=== PATIENT | male | born 1945 | race Caucasian/White ===

== ENCOUNTER 2016-07-26 15:06 | Inpatient (IN) | payer MEDICARE, OTHER ==
[2016-07-26] VITALS (13 sets, daily range): BP systolic 93–136; BP diastolic 49–77; PULSE 79–155; RESP 14–46; TEMP 99–101.1; O2SAT 87–100
[~2016-07-26] VITALS: Ht 172.7 cm; Wt 69.0 kg
[~2016-07-26 15:06] MED LIST: COUM4TAB7 PO; ENOX100P SC; ENOX120P SC
[2016-07-26] MEDS ORDERED: ETOMIDATE 20 MG/10 ML VIAL ONE (15:16)
[2016-07-26] MEDS ORDERED: PROPOFOL 1000 MG/100 ML INJ 100 ML ONE (15:30)
[2016-07-26] MEDS ORDERED: MIDAZOLAM HCL 5 MG/ML VIAL (1 ML) ONE (15:32)
[2016-07-26 15:37] LABS: MEAN CORPUSCULAR HGB CONC 28.7 % (32.0-36.0)
[2016-07-26] MEDS ORDERED: VANCOMYCIN INJ 1,000 MG in SODIUM CHLOR 0.9% 250 ML INJ 250 ML IV ONE (15:45)
[2016-07-26] MEDS ORDERED: SODIUM CHLOR 0.9% 1000 ML INJ 1,000 ML IV ONE ×3 (15:45)
[2016-07-26] MEDS ORDERED: VECURONIUM BROMIDE 10 MG VIAL IV PUSH ONE (15:45)
[2016-07-26] MEDS ORDERED: PIPERACIL-TAZO 3.375 GM PREMIX 50 ML IV ONE (15:45)
[2016-07-26] MEDS ORDERED: PROPOFOL 1000 MG/100 ML INJ 100 ML IV SCH ×2 (15:45→17:30)
[2016-07-26] MEDS ORDERED: ETOMIDATE 20 MG/10 ML VIAL IV PUSH ONE (15:45)
[2016-07-26 16:03] LABS: BLOOD GAS BASE EXCESS -8.2 mmol/L (-2-2); BLOOD GAS HCO3 17 mmol/L (22-26); BLOOD GAS METHEMOGLOBIN 0.6 % (0-2); BLOOD GAS O2 HGB SATURATION 98 % (90-100); BLOOD GAS OXYGEN CONTENT 6.7 Vol % (12.0-20.0); BLOOD GAS PCO2 33 mmHg (38-42); BLOOD GAS PO2 402 mmHG (61-120); BLOOD GAS TOTAL HGB 4.1 G/DL (12.0-16.0); CRITICAL VALUE YES; DRAW SITE RT RADIAL; FIO2 100 %; NUMBER OF ARTERIAL PUNCTURES 1; OXYGEN DEVICE VENTILATOR; STAT YES; TEMP CORR TO 98.6; VENT SETTINGS A/C16/500/PEEP5
[2016-07-26 16:06] LABS: BLOOD, URINE TRACE (NEG); GLUCOSE,URINE NEG (NEG); KETONE, URINE NEG (NEG); NITRITE,URINE NEG (NEG); PH, URINE 5.5 (5.0-8.5); URINE COLOR YELLOW (YELLW/STRAW)
[2016-07-26 16:08] LABS: AUTOMATED NEUTROPHIL # 10.8 TH/MM3 (1.8-7.7); LYMPH % 10.4 % (9.0-44.0); LYMPHOCYTE # 1.4 TH/MM3 (1.0-4.8); MEAN CELL VOLUME 67.8 FL (80.0-100.0); MEAN CORPUSCULAR HEMOGLOBIN 19.5 PG (27.0-34.0); MONO % 6.4 % (0.0-8.0); NEUT % 83.2 % (16.0-70.0); PLATELET COUNT 236 TH/MM3 (150-450); RED BLOOD COUNT 2.27 MIL/MM3 (4.50-5.90)
--- NOTE | 2016-07-26 16:13 | RADRPT ---
EXAM DATE/TIME: 07/26/2016 15:42 [facility] COMPARISON: No previous studies available for comparison. INDICATIONS : Evaluate ET tube placement. MEDICAL HISTORY : None. SURGICAL HISTORY : None. ENCOUNTER: Initial ACUITY: 1 day PAIN SCORE: Non-responsive. LOCATION: Bilateral chest FINDINGS: A single view of the chest demonstrates the lungs to be symmetrically aerated without evidence of mas s, infiltrate or effusion. Endotracheal tube 7 cm above the kari. Nasogastric tube tip in stomach. The cardiomediastinal contours are unremarkable. Skinfold along the right lower lateral chest. Blanca us structures are intact. CONCLUSION: No acute disease. Endotracheal tube 7 cm above the kari. David Montes MD on July 26, 2016 at 16:10 Board Certified Radiologist. This report was verified electronically.
[2016-07-26 16:15] LABS: WBC, URINE 0-2 /hpf (0-5)
[2016-07-26 16:15] LABS: HEMO FLAGS AUTO DIFF
[2016-07-26] MEDS ORDERED: SODIUM CHLOR 0.9% 250 ML INJ 250 ML IV ONE (16:15)
[2016-07-26 16:16] LABS: COMMENT (UR) CULT NOT INDICATED; COMMENT2 (UR) CULT NOT INDICATED; CULTURE IF INDICATED CULT NOT INDICATED; SQUAMOUS EPITHELIAL CELL URINE 0-5 /hpf (0-5)
[2016-07-26 16:21] LABS: ALT (GPT) 9 U/L (12-78); ANION GAP 15 MEQ/L (5-15); AST (GOT) 16 U/L (15-37); BICARBONATE 16.8 MEQ/L (21.0-32.0); BLOOD UREA NITROGEN 60 MG/DL (7-18); CHLORIDE 116 MEQ/L (98-107); GLOMERULAR FILTRATION RATE 23 ML/MIN (>89); MAGNESIUM 2.3 MG/DL (1.5-2.5); SODIUM (NA) 148 MEQ/L (136-145)
[2016-07-26 16:24] LABS: ALKALINE PHOSPHATASE 24 U/L (45-117); CREATINE KINASE 233 U/L (39-308); HEMATOCRIT 15.4 % (39.0-51.0); TOTAL BILIRUBIN ADULT 0.8 MG/DL (0.2-1.0)
[2016-07-26 16:32] LABS: APTT (PATIENT) 26.4 SEC (24.3-30.1); INTERNATIONAL NORMALIZED RATIO 1.2 RATIO; PROTHROMBIN TIME - PATIENT 13.4 SEC (9.8-11.6)
--- NOTE | 2016-07-26 16:33 | PD ---
HPI Chief Complaint: Altered Mental Status Time Seen by Provider: 15:22 Travel History International Travel<30 days: No (UNKNOWN ) Contact w/Intl Traveler<30days: No Traveled to known affect area: No (UNKNOWN) History of Present Illness HPI Patient is a 71-year-old male who was brought to emergency room by EVAC for altered mental status. As per EVAC, pt's roommate left this morning for work and noticed that patient was sitting on the couch with his mouth open, reports that when he returned home from work, he was still in the same position and minimally responsive. EMS arrived on scene and reports that patient was hypotensive and hypoxic. Reports that his systolic blood pressure was in the 70s, his pulse ox was also in the 70s as well. Patient was only responsive to painful stimuli at this point. Reports that his blood sugar was normal. Reports that he was given almost a liter of fluid prior to arrival to ER. BP while in the ER 108/57. Patient is unable to provide any information at this time, he is nonverbal, patient was intubated for airway safety [facility] Past Medical History Respiratory: Yes (PE FEB 2011) Social History Alcohol Use: No Tobacco Use: Yes (4 CIGARETTES A DAY) Substance Use: No Allergies-Medications (Allergen,Severity, Reaction): Coded Allergies: No Known Allergies (Unverified , 07/26/16) Reported Meds & Prescriptions Reported Meds & Active Scripts Active Active Prescriptions or Reported Medications Unobtainable Review of Systems ROS Limitations: Intubated, Altered Mental Status, Unresponsive Physical Exam Exam Limitations: Altered Mental Status Narrative GENERAL: severe distress, patient cachectic appearing SKIN: Focused skin assessment cold and dry HEAD: Atraumatic. Normocephalic. EYES: Pupils equal and round. No scleral icterus. No injection or drainage. ENT: No nasal bleeding or discharge. Mucous membranes pink and moist. NECK: Trachea midline. No JVD. CARDIOVASCULAR: Tachycardic. No murmur appreciated. RESPIRATORY: Tachypneic,. Clear to auscultation. Breath sounds equal bilaterally. GASTROINTESTINAL: Abdomen soft, non-tender, nondistended. Melanotic stool, heme positive MUSCULOSKELETAL: No obvious deformities. No clubbing. No cyanosis. No edema. NEUROLOGICAL: GCS 8, patient unresponsive, only responsive to painful stimuli Data Data Last Documented VS Vital Signs Date Time Temp Pulse Resp B/P Pulse Ox O2 Delivery O2 Flow Rate FiO2 07/26/16 17:00 95 100 07/26/16 16:16 101.1 116 16 93/55 Ventilator Orders Etomidate Inj (Amidate Inj) (07/26/16 15:16) Propofol 1000 Mg/100 Ml Inj (Diprivan 10 (07/26/16 15:30) Midazolam Inj (Versed Inj) (07/26/16 15:32) Chest, Single Ap (07/26/16 15:33) Electrocardiogram (07/26/16 15:12) Ammonia (07/26/16 15:34) Electrocardiogram (07/26/16 15:34) Complete Blood Count With Diff (07/26/16 15:34) Comprehensive Metabolic Panel (07/26/16 15:34) Prothrombin Time / Inr (Pt) (07/26/16 15:34) Act Partial Throm Time (Ptt) (07/26/16 15:34) Lactic Acid Sepsis Protocol (07/26/16 15:34) Magnesium (Mg) (07/26/16 15:34) Phosphorus (Po4) (07/26/16 15:34) Lipase (07/26/16 15:34) Ckmb (Isoenzyme) Profile (07/26/16 15:34) Troponin I (07/26/16 15:34) Urinalysis - C+S If Indicated (07/26/16 15:34) Blood Culture (07/26/16 15:34) Arterial Blood Gas (Abg) (07/26/16 15:34) Ct Brain W/O Iv Contrast(Rout) (07/26/16 15:34) Urinary Catheter Insert/Apply (07/26/16 15:36) Sunil-Gastric Tube Insert/Mon (07/26/16 15:36) Sodium Chlor 0.9% 1000 Ml Inj (Ns 1000 M (07/26/16 15:45) Sodium Chlor 0.9% 1000 Ml Inj (Ns 1000 M (07/26/16 15:45) Sodium Chlor 0.9% 1000 Ml Inj (Ns 1000 M (07/26/16 15:45) Propofol 1000 Mg/100 Ml Inj (Diprivan 10 (07/26/16 15:45) Piperacil-Tazo 3.375 Gm Premix (Zosyn 3. (07/26/16 15:45) Vancomycin Inj (Vancomycin Inj) (07/26/16 15:45) Etomidate Inj (Amidate Inj) (07/26/16 15:45) Vecuronium 10 Mg Inj (Norcuron 10 Mg Inj (07/26/16 15:45) Type And Screen (07/26/16 16:09) Red Blood Cells (Rbc) (07/26/16 16:09) Blood Product Administration .UPON TRANSFUSION (07/26/16 16:09) Sodium Chlor 0.9% 250 Ml Inj (Ns 250 Ml (07/26/16 16:15) Ct Thorax/ Chest Wo Iv Contras (07/26/16 ) Pantoprazole Inj (Protonix Inj) (07/26/16 17:30) Pantoprazole Inj (Protonix Inj) (07/26/16 17:30) CKMB (07/26/16 15:40) CKMB% (07/26/16 15:40) Acetaminophen Supp (Tylenol Supp) (07/26/16 16:45) Drug Screen, Random Urine (07/26/16 16:47) Alcohol (Ethanol) (07/26/16 16:50) Sputum Culture And Gram Stain (07/26/16 16:56) Urine Culture (07/26/16 16:56) Consult Gastroenterology (07/26/16 ) Complete Blood Count With Diff (07/27/16 06:00) Comprehensive Metabolic Panel (07/27/16 06:00) Magnesium (Mg) (07/27/16 06:00) Lactic Acid (07/26/16 22:00) Ckmb (Isoenzyme) Profile (07/26/16 16:56) Ckmb (Isoenzyme) Profile (07/26/16 22:56) Ckmb (Isoenzyme) Profile (07/27/16 04:56) Troponin I (07/26/16 16:56) Troponin I (07/26/16 22:56) Troponin I (07/27/16 04:56) Chest, Single Ap (07/27/16 ) Piperacil-Tazo 3.375 Gm Premix (Zosyn 3. (07/26/16 22:00) Vancomycin Consult Pharmacy (Vancomycin (07/26/16 17:00) Admit Order (Ed Use Only) (07/26/16 17:00) Ct Abd/Pel W/O Iv Contrast (07/26/16 ) Magnesium (Mg) (07/26/16 16:56) Labs Laboratory Tests Test 07/26/16 07/26/16 07/26/16 07/26/16 15:38 15:39 15:40 15:53 Lactic Acid Level 6.2 mmol/L Ammonia 23 MCMOL/L Urine Color YELLOW Urine Turbidity HAZY Urine pH 5.5 Urine Specific [place] 1.014 Urine Protein 30 mg/dL Urine Glucose (UA) NEG mg/dL Urine Ketones NEG mg/dL Urine Occult Blood TRACE Urine Nitrite NEG Urine Bilirubin NEG Urine Urobilinogen LESS THAN 2.0 MG/DL Urine Leukocyte Esterase NEG Urine RBC 3-5 /hpf Urine WBC 0-2 /hpf Urine Squamous Epithelial 0-5 /hpf Cells Urine Amorphous Sediment LARGE Urine Bacteria NONE /hpf Microscopic Urinalysis Comment CULT NOT INDICATED White Blood Count 13.0 TH/MM3 Red Blood Count 2.27 MIL/MM3 Hemoglobin 4.4 GM/DL Hematocrit 15.4 % Mean Corpuscular Volume 67.8 FL Mean Corpuscular Hemoglobin 19.5 PG Mean Corpuscular Hemoglobin 28.7 % Concent Red Cell Distribution Width 20.0 % Platelet Count 236 TH/MM3 Mean Platelet Volume 8.5 FL Neutrophils (%) (Auto) 83.2 % Lymphocytes (%) (Auto) 10.4 % Monocytes (%) (Auto) 6.4 % Eosinophils (%) (Auto) 0.0 % Basophils (%) (Auto) 0.0 % Neutrophils # (Auto) 10.8 TH/MM3 Lymphocytes # (Auto) 1.4 TH/MM3 Monocytes # (Auto) 0.8 TH/MM3 Eosinophils # (Auto) 0.0 TH/MM3 Basophils # (Auto) 0.0 TH/MM3 CBC Comment AUTO DIFF Differential Comment AUTO DIFF CONFIRMED Platelet Estimate NORMAL Platelet Morphology Comment NORMAL Prothrombin Time 13.4 SEC Prothromb Time International 1.2 RATIO Ratio Activated Partial 26.4 SEC Thromboplast Time Sodium Level 148 MEQ/L Potassium Level 4.0 MEQ/L Chloride Level 116 MEQ/L Carbon Dioxide Level 16.8 MEQ/L Anion Gap 15 MEQ/L Blood Urea Nitrogen 60 MG/DL Creatinine 2.73 MG/DL Estimat Glomerular Filtration 23 ML/MIN Rate Random Glucose 159 MG/DL Calcium Level 8.8 MG/DL Phosphorus Level 4.4 MG/DL Magnesium Level 2.3 MG/DL Total Bilirubin 0.8 MG/DL Aspartate Amino Transf 16 U/L (AST/SGOT) Alanine Aminotransferase 9 U/L (ALT/SGPT) Alkaline Phosphatase 24 U/L Total Creatine Kinase 233 U/L Creatine Kinase MB 1.1 NG/ML Troponin I 0.53 NG/ML Total Protein 6.9 GM/DL Albumin 2.1 GM/DL Lipase 160 U/L Ethyl Alcohol Level LESS THAN 3 MG/DL Blood Gas Puncture Site RT RADIAL Blood Gas Patient Temperature 98.6 Blood Gas HCO3 17 mmol/L Blood Gas Base Excess -8.2 mmol/L Blood Gas Oxygen Saturation 98 % Arterial Blood pH 7.33 Arterial Blood Partial 33 mmHg Pressure CO2 Arterial Blood Partial 402 mmHG Pressure O2 Arterial Blood Oxygen Content 6.7 Vol % Arterial Blood 2.0 % Carboxyhemoglobin Arterial Blood Methemoglobin 0.6 % Blood Gas Hemoglobin 4.1 G/DL Oxygen Delivery Device VENTILATOR Blood Gas Ventilator Setting A/C16/500/PEEP5 Blood Gas Inspired Oxygen 100 % Test 07/26/16 16:20 Blood Type O POSITIVE Antibody Screen NEGATIVE Crossmatch Leukocyte-Reduced Red Blood Cells Blood Bank Comment MDM Medical Decision Making Medical Screen Exam Complete: Yes Emergency Medical Condition: Yes Interpretation(s) EKG at 1536: aflutter at 150bpm, qt/qtc: 302/388 Vital Signs Date Time Temp Pulse Resp B/P Pulse Ox O2 Delivery O2 Flow Rate FiO2 07/26/16 16:16 101.1 116 16 93/55 98 Ventilator 50 07/26/16 15:12 155 30 108/57 Differential Diagnosis Intracranial hemorrhage, GI bleed, renal failure, electrolyte abnormality, sepsis, pneumonia, UTI Narrative Course 71-year-old male who presents to emergency room with a GCS of 8, EMS reports that patient was found unresponsive on his couch today by his roommate. Patient was intubated upon arrival to the emergency room as his GCS was 8 for airway protection Upon presentation to the emergency room, patient was tachycardic, febrile, hypotensive for EMS, initial blood pressure here after 1 L IV fluid was 108/57. Patient was given rectal Tylenol for his temperature of 101.1 patient was tachycardic with a heart rate in the 116-155, patient has SIRS criteria, patient was ordered 3 L of IV fluids, patient has been pancultured, IV Zosyn as well as vancomycin was administered. Patient a pale-appearing,, rectal exam was performed, patient does have dark brown stools, heme positive. Patient with a hemoglobin of 4.4, concern for possible GI bleed. 4 units of blood was ordered for patient, emergent consent was implied as patient has no family members, OG tube with dark blood, rectal exam with heme positive dark stool, protonix bolus ordered along with protonix gtt. Patient's white blood cell count is 13,000, lactate is 6.2, lactic acidosis could be secondary to hypoperfusion, patient has been pancultured this time, broad-spectrum antibiotics has been administered. Plan to obtain CT of the chest, abdomen and pelvis for evaluation of possible source of infection/bleed Patient also with acute renal insuffiency, cr. 2.73 - most likely from dehydration case discussed with Dr. Salas who accepts pt to service case reviewed with Dr. Gastelum with GI who will also see patient in consult Critical Care Narrative Aggregate critical care time was 60 minutes. Time to perform other separately billable procedures was not included in the critical care time. My time did not include minutes spent treating any other patients simultaneously or on activities that did not directly contribute to the patient's treatment. The services I provided to this patient were to treat and/or prevent clinically significant deterioration that could result in: , decompensation, deterioration I provided critical care services requiring my management, as noted below: Chart data review, documentation time, medication orders and management, vital sign assessments/reviewing monitor data, ordering and reviewing lab tests, ordering and interpreting/reviewing x-rays and diagnostic studies, care of the patient and discussion of the patient with the admitting physicians. Procedures Procedure Narrative After the risks and benefits were discussed the following procedure was performed: INTUBATION: The patient was put in optimal position for the procedure. Rapid sequence intubation was initiated by me using 20 milligrams of etomidate IV and 10 milligrams of vecuronium IV. The patient was intubated with a 7.5 cuffed endotracheal tube. Tube placement was confirmed by visualization of the tube and balloon passing through the cords, capnometry and subsequent chest x-ray. Breath sounds were equal and well aerated bilaterally postintubation. No breath sounds over stomach. Patient tolerated procedure well. Diagnosis Primary Impression: Ventilator dependence Additional Impressions: Anemia Qualified Code: D64.9 - Anemia, unspecified type Renal failure Qualified Code: N17.9 - Acute renal failure, unspecified acute renal failure type NSTEMI (non-ST elevated myocardial infarction) Sepsis Qualified Code: A41.9 - Sepsis, due to unspecified organism Atrial fibrillation with rapid ventricular response Admitting Information Admitting Physician Requests: Admit Scripts Unable to Obtain Active Prescriptions or Reported Meds Eva Oliver DO Jul 26, 2016 16:33
[2016-07-26 16:38] LABS: CKMB 1.1 NG/ML (0.5-3.6)
[2016-07-26] MEDS ORDERED: ACETAMINOPHEN 650 MG SUPP RECTAL ONE (16:45)
--- NOTE | 2016-07-26 16:59 | HHI.HP ---
[facility] Service Critical Care Medicine Primary Care Physician Unknown Admission Diagnosis Diagnosis: (1) Acute respiratory failure Diagnosis: Principal (2) Encephalopathy acute Diagnosis: Principal (3) Septic shock Diagnosis: Principal (4) GI bleed Diagnosis: Principal (5) Atrial fibrillation with rapid ventricular response Diagnosis: Principal (6) Severe anemia Diagnosis: Principal (7) Lactic acidosis Diagnosis: Principal (8) Acute kidney failure Diagnosis: Principal (9) Dehydration Diagnosis: Principal (10) Leukocytosis Diagnosis: Principal (11) Elevated troponin Diagnosis: Principal (12) possible history of PE in 2012 Diagnosis: Secondary Chief Complaint: Altered mental status Respiratory failure Fever Travel History International Travel<30 Days: No (UNKNOWN ) Contact w/Intl Traveler <30 Da: No Traveled to Known Affected Are: No (UNKNOWN) Sepsis Criteria SIRS Criteria (2 or more): Temp > 100.9 or < 96.8, Heart rate over 90, RR > 20 or PaCO2 < 32, WBC > 28597, < 4000 or > 10% bands Sepsis Criteria (SIRS+source): Infect source susp/known Severe Sepsis (+one): Lactate >2, Acute Oliguria/Renal Failure Septic Shock Criteria: Lactic acid >=4 Criteria Outcome: Meets septic shock criteria History of Present Illness Patient is a 71-year-old male with only known past medical history of tobacco abuse and a possible history of PE in 2011 aas per emergency department notes was brought to the [facility] ED for altered mental status. Apparently patient's roommate found him unresponsive in the morning and after he came back from work patient was still in the same condition not responsive. EMS was called patient was found hypotensive, hypoxemic and given a liter bolus which improved the blood pressure. In the emergency department patient had a GCS of 8. He had a fever 101.1 tachycardic and heart rate 150s. Patient was given additional fluid boluses and was intubated by Dr. Oliver for airway protection. Chest x-ray was unremarkable lab work showed a hemoglobin of 4.1 white count of 13, lactic acid of 6.2 BUN of 16 creatinine of 2.7. For possible sepsis he was given vancomycin and Zosyn. A total of 4 units of PRBC had been ordered and GI consult had been requested. History of Hemoccult was positive. Troponin was slightly elevated could be demand ischemia in renal failure I evaluated the patient in the ED. He appears chronically ill, dishevelled. CT of the head and chest abdomen pelvis is pending at this time. Dr.Al Gastelum with GI had been consulted. IV Protonix gtt. Start Cardizem bolus and drip for A fib with RVR Review of Systems ROS Limitations: Intubated, Altered Mental Status Past Family Social History Allergies: Coded Allergies: No Known Allergies (Unverified , 07/26/16) Past Medical History Apparently had pulmonary embolism in 2011, per ER records Past Surgical History Unknown Reported Medications UNABLE TO VERIFY MEDS Lovenox (Enoxaparin Sodium) 120 /0.8 Inj 1 0.8 SC Lovenox (Enoxaparin Sodium) 100 Mg/Ml Inj 140 Mg SC DAILY Coumadin (Warfarin Sodium) 4 Mg Tab 4 Mg PO DAILY Active Ordered Medications Received vancomycin and Zosyn in the ED Family History Unable to obtain Social History Smoker per ER records Physical Exam Vital Signs Vital Signs Date Time Temp Pulse Resp B/P Pulse Ox O2 Delivery O2 Flow Rate FiO2 07/26/16 16:16 101.1 116 16 93/55 98 Ventilator 50 07/26/16 15:12 155 30 108/57 Physical Exam P/E GENERAL: Chronically ill-appearing disheveled male who is intubated, sedated SKIN: Warm and dry. Large wart on L thigh HEAD: Atraumatic. Normocephalic. EYES: Pupils equal and round. ENT: Oral mucosa is dry. Orotracheally intubated NECK: Trachea midline. No JVD. CARDIOVASCULAR: Atrial fibrillation with RVR. No murmur appreciated. Prominent apical impulse RESPIRATORY: Bilateral expiratory wheezes, no crackles GASTROINTESTINAL: Abdomen soft, non-tender, nondistended. (Melanotic stool, heme positive per ER notes) MUSCULOSKELETAL: No obvious deformities. No clubbing. No cyanosis. No edema. NEUROLOGICAL: Intubated sedated and still under neuromuscular paralysis from vecuronium given for intubation Laboratory Laboratory Tests Test 07/26/16 07/26/16 07/26/16 07/26/16 15:38 15:39 15:40 15:53 Lactic Acid Level 6.2 Ammonia 23 Urine Color YELLOW Urine Turbidity HAZY Urine pH 5.5 Urine Specific [place] 1.014 Urine Protein 30 Urine Glucose (UA) NEG Urine Ketones NEG Urine Occult Blood TRACE Urine Nitrite NEG Urine Bilirubin NEG Urine Urobilinogen LESS THAN 2.0 Urine Leukocyte Esterase NEG Urine RBC 3-5 Urine WBC 0-2 Urine Squamous Epithelial 0-5 Cells Urine Amorphous Sediment LARGE Urine Bacteria NONE Microscopic Urinalysis Comment CULT NOT INDICATED White Blood Count 13.0 Red Blood Count 2.27 Hemoglobin 4.4 Hematocrit 15.4 Mean Corpuscular Volume 67.8 Mean Corpuscular Hemoglobin 19.5 Mean Corpuscular Hemoglobin 28.7 Concent Red Cell Distribution Width 20.0 Platelet Count 236 Mean Platelet Volume 8.5 Neutrophils (%) (Auto) 83.2 Lymphocytes (%) (Auto) 10.4 Monocytes (%) (Auto) 6.4 Eosinophils (%) (Auto) 0.0 Basophils (%) (Auto) 0.0 Neutrophils # (Auto) 10.8 Lymphocytes # (Auto) 1.4 Monocytes # (Auto) 0.8 Eosinophils # (Auto) 0.0 Basophils # (Auto) 0.0 CBC Comment AUTO DIFF Prothrombin Time 13.4 Prothromb Time International 1.2 Ratio Activated Partial 26.4 Thromboplast Time Sodium Level 148 Potassium Level 4.0 Chloride Level 116 Carbon Dioxide Level 16.8 Anion Gap 15 Blood Urea Nitrogen 60 Creatinine 2.73 Estimat Glomerular Filtration 23 Rate Random Glucose 159 Calcium Level 8.8 Phosphorus Level 4.4 Magnesium Level 2.3 Total Bilirubin 0.8 Aspartate Amino Transf 16 (AST/SGOT) Alanine Aminotransferase 9 (ALT/SGPT) Alkaline Phosphatase 24 Total Creatine Kinase 233 Creatine Kinase MB 1.1 Troponin I 0.53 Total Protein 6.9 Albumin 2.1 Lipase 160 Blood Gas Puncture Site RT RADIAL Blood Gas Patient Temperature 98.6 Blood Gas HCO3 17 Blood Gas Base Excess -8.2 Blood Gas Oxygen Saturation 98 Arterial Blood pH 7.33 Arterial Blood Partial 33 Pressure CO2 Arterial Blood Partial 402 Pressure O2 Arterial Blood Oxygen Content 6.7 Arterial Blood 2.0 Carboxyhemoglobin Arterial Blood Methemoglobin 0.6 Blood Gas Hemoglobin 4.1 Oxygen Delivery Device VENTILATOR Blood Gas Ventilator Setting A/C16/500/PEEP5 Blood Gas Inspired Oxygen 100 Date/Time Procedure Status Source Growth 07/26/16 15:40 Aerobic Blood Culture Received Blood Peripheral Pending 07/26/16 15:40 Anaerobic Blood Culture Received Blood Peripheral Pending Result Diagram: 07/26/16 1540 07/26/[address] head shows previous stroke and encephalomalacia CT abdomen shows 3.[address] chest shows no acute infiltrate Septic Shock Reassessment Heart: Other (tachycardic) Lungs: Course Skin: Warm, Dry Peripheral Pulses: Weak Right Radial Weak Left Radial Assessment and Plan Assessment and Plan NEURO: Acute encephalopathy most likely metabolic Previous CVA with encephalomalacia -CT head shows old infarcts without any acute findings, may need MRI of the head -EEG ordered pending -Urine drug screen and alcohol level RESP: Acute hypoxemic respiratory failure Acute COPD exacerbation Tobacco abuse -Intubated for airway protection continuous controlled mechanical ventilation -DuoNeb every 6 hours and when necessary -IV Solu-Medrol 125 mg 1 and 60 every 12 -Broad-spectrum antibiotics with vancomycin and Zosyn CV: Septic and hypovolemic shock Atrial fibrillation with RVR Lactic acidosis -IV fluids 3 L bolus of normal saline and 150 mL per hour -Norepinephrine if needed to keep map above 65 -Cardizem 15 mg IV and gtt -Trend lactic acid GI: GI bleed 3.4 cm infrarenal AAA -Transfuse 4U PRBC. -GI consulted Dr. Callahan. Will need endoscopy -Continue IV Protonix infusion -No intervention needed for AAA at this time : Acute kidney failure -Monitor renal function closely. Place Weems catheter. -Aggressive hydration -Renal failure most likely secondary to dehydration and sepsis -Baseline creatinine is unknown ID: Septic shock -Source of sepsis is unclear. Blood cultures have been sent -Continue Zosyn and vancomycin HEME: Severe anemia requiring transfusion GI bleed -Transfuse 4 units PRBC target hemoglobin more than 8 -Gastroenterology consulted -Monitor CBC, CMP, coags ENDO: -Electrolyte replacement per protocol PROPH: -Bilateral lower extremity SCDs/ANGELITO. Protonix gtt. chemical DVT prophylaxis contraindicated due to GI bleed LINES: D -Utilize peripheral IVs, central line if needed CC time 82 min Code Status Full Discussed Condition With Dr. Oliver Problem Qualifiers (1) Acute respiratory failure: Qualified Code: J96.00 - Acute respiratory failure, unspecified whether with hypoxia or hypercapnia (2) GI bleed: Qualified Code: K92.2 - Gastrointestinal hemorrhage, unspecified gastrointestinal hemorrhage type (3) Acute kidney failure: Qualified Code: N17.9 - Acute renal failure, unspecified acute renal failure type (4) Leukocytosis: Qualified Code: D72.829 - Leukocytosis, unspecified type Dennis Salas MD Jul 26, 2016 16:59
[2016-07-26] MEDS ORDERED: Vancomycin Consult Pharmacy 1 EA OTHER SCH (17:00)
--- NOTE | 2016-07-26 17:07 | RADRPT ---
EXAM DATE/TIME: 07/26/2016 16:47 [facility] COMPARISON: No previous studies available for comparison. INDICATIONS : Patient is unable to speak, Altered mental status. Last seen normal last evening. RADIATION DOSE: 60.84 CTDIvol (mGy) MEDICAL HISTORY : None SURGICAL HISTORY : None. ENCOUNTER: Initial ACUITY: 1 day PAIN SCALE: Non-responsive LOCATION: cranial TECHNIQUE: Multiple contiguous axial images were obtained of the head. Using automated exposure control and adj ustment of the mA and/or kV according to patient size, radiation dose was kept as low as reasonably a chievable to obtain optimal diagnostic quality images. FINDINGS: CEREBRUM: Areas of encephalomalacia left frontal, parietal, temporal and left occipital lobe. The ventricles ar e normal for age. Extra-axial dilatation of the left lateral ventricle. No evidence of midline shift, mass lesion, hemorrhage or acute infarction. No extra-axial fluid collections are seen. POSTERIOR FOSSA: The cerebellum and brainstem are intact. The 4th ventricle is midline. The cerebellopontine angle i s unremarkable. EXTRACRANIAL: The visualized portion of the orbits is intact. Sinus disease. SKULL: The calvaria is intact. No evidence of skull fracture. CONCLUSION: 1. 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 2. No acute intracranial abnormality. David Montes MD on July 26, 2016 at 17:03 Board Certified Radiologist. This report was verified electronically.
[2016-07-26 17:09] LABS: PLATELET ESTIMATE SMEAR NORMAL (NORMAL); PLATELET MORPHOLOGY NORMAL (NORMAL); SCAN/DIFF AUTO DIFF CONFIRMED
[2016-07-26] MEDS: PANTOPRAZOLE INJ 80 MG in SODIUM CHLORIDE 0.9% INJ 100 ML IV SCH (17:09)
--- NOTE | 2016-07-26 17:19 | RADRPT ---
EXAM DATE/TIME: 07/26/2016 16:52 [facility] COMPARISON: No previous studies available for comparison. INDICATIONS : Shortness of breath, Altered mental status RADIATION DOSE: 6.08 CTDIvol (mGy) MEDICAL HISTORY : None SURGICAL HISTORY : Non-responsive. ENCOUNTER: Initial ACUITY: 1 day PAIN SCALE: Non-responsive LOCATION: TECHNIQUE: Volumetric scanning of the abdomen and pelvis was performed. Using automated exposure control and ad justment of the mA and/or kV according to patient size, radiation dose was kept as low as reasonably achievable to obtain optimal diagnostic quality images. FINDINGS: LOWER LUNGS: The visualized lower lungs are clear. LIVER: Homogeneous density without lesion. There is no dilation of the biliary tree. No calcified gallston es. SPLEEN: Normal size without lesion. PANCREAS: Within normal limits. KIDNEYS: Right kidney not visualized. There is no mass, stone, or hydronephrosis on the left.. ADRENAL GLANDS: Prominence of left adrenal gland. VASCULAR: Extensive atherosclerotic changes. Infrarenal abdominal aortic aneurysm measures 3.4 cm. 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 Inferior vena cava filter at L3 level.. BOWEL/MESENTERY: The stomach, small bowel, and colon demonstrate no acute abnormality. There is no free intraperitone al air or fluid. Nasogastric tube tip in stomach. ABDOMINAL WALL: Within normal limits. RETROPERITONEUM: There is no lymphadenopathy. BLADDER: No wall thickening or mass. A Weems catheter. REPRODUCTIVE: Within normal limits. INGUINAL: There is no lymphadenopathy or hernia. MUSCULOSKELETAL: Within normal limits for patient age. CONCLUSION: 1. Infrarenal abdominal aortic aneurysm measures 3.4 cm. Aneurysmal dilatation right common iliac art rudolph. 2. 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 3. Prominence of the left adrenal gland. David Montes MD on July 26, 2016 at 17:12 Board Certified Radiologist. This report was verified electronically.
[2016-07-26] MEDS ORDERED: MORPHINE SULFATE 4 MG/ML INJ IV PRN (17:30)
[2016-07-26] MEDS ORDERED: CHLORHEXIDINE GLUCONATE 2 % 1 PACK (2 CLOTHS) TOP PRN (17:30)
[2016-07-26] MEDS ORDERED: PANTOPRAZOLE INJ 80 MG in SODIUM CHLORIDE 0.9% INJ 35 ML IV ONE (17:30)
[2016-07-26] MEDS ORDERED: MISCELLANEOUS NURSING INFORMATION XX SCH (17:30)
[2016-07-26] MEDS ORDERED: ACETAMINOPHEN 325 MG TAB PO PRN (17:30)
[2016-07-26] MEDS ORDERED: methylPREDNISolone SOD SUCC 125 MG/2 ML VIAL IV PUSH ONE (17:30)
[2016-07-26] MEDS ORDERED: DILTIAZEM HCL 25 MG/5 ML VIAL IVP ONE (17:45)
[2016-07-26] MEDS ORDERED: DILTIAZEM INJ 125 MG in SODIUM CHLORIDE 0.9% INJ 100 ML IV SCH (17:45)
[2016-07-26] MEDS: SODIUM CHLOR 0.9% 1000 ML INJ 1,000 ML IV SCH (17:48)
[2016-07-26 17:55] LABS: BLOOD GAS BASE EXCESS -5.9 mmol/L (-2-2); BLOOD GAS CARBOXYHEMOGLOBIN 2.1 % (0-4); BLOOD GAS HCO3 19 mmol/L (22-26); BLOOD GAS METHEMOGLOBIN 0.4 % (0-2); BLOOD GAS O2 HGB SATURATION 97 % (90-100); BLOOD GAS OXYGEN CONTENT 6.3 Vol % (12.0-20.0); BLOOD GAS PCO2 33 mmHg (38-42); BLOOD GAS PO2 151 mmHG (61-120); BLOOD GAS TOTAL HGB 4.4 G/DL (12.0-16.0); CRITICAL VALUE YES; DRAW SITE RT RADIAL; FIO2 50 %; NUMBER OF ARTERIAL PUNCTURES 1; OXYGEN DEVICE VENTILATOR; STAT YES; TEMP CORR TO 98.6; VENT SETTINGS A/C14/600/PEEP5
[2016-07-26 17:57] LABS: LACTIC ACID GHOST NOT REPORTABLE
[2016-07-26] MEDS: RESP: ALBUTEROL 2.5 MG/IPRATROPIUM 0.5 MG NEB (SCH) NEB ×2 (18:02→19:46)
--- NOTE | 2016-07-26 18:06 | RADRPT ---
EXAM DATE/TIME: 07/26/2016 16:52 [facility] COMPARISON: No previous studies available for comparison. INDICATIONS : Shortness of breath. RADIATION DOSE: 6.08 CTDIvol (mGy) MEDICAL HISTORY : None. SURGICAL HISTORY : None. ENCOUNTER: Initial ACUITY: 1 day. PAIN SCALE: 0/10 LOCATION: Chest. TECHNIQUE: Volumetric scanning of the chest was performed. Using automated exposure control and adjustment of t he mA and/or kV according to patient size, radiation dose was kept as low as reasonably achievable to obtain optimal diagnostic quality images. FINDINGS: LUNGS: There is peribronchial thickening and opacification of left lower lobe bronchi consistent with mucous plugging with bronchitis, likely infectious. PLEURAE: There is no pleural thickening or pleural effusion. MEDIASTINUM: The heart and great vessels demonstrate no acute abnormality. There is no mediastinal or hilar lymph adenopathy. AXILLAE: Within normal limits. No lymphadenopathy. MUSCULOSKELETAL: Within normal limits for patient age. MISCELLANEOUS: Endotracheal tube with tip in mid trachea. Nasogastric tube tip in stomach. CONCLUSION: 1. Mucous plugging with opacification of left lower lobe bronchi likely bronchitis/infection. 2. Right lung clear. David Montes MD on July 26, 2016 at 17:18 Board Certified Radiologist. This report was verified electronically.
[2016-07-26] MEDS: CHLORHEXIDINE 0.12% (ORAL KIT) 15 ML CUP MT SCH (20:00)
[2016-07-26 21:15] LABS: MAGNESIUM 2.3 MG/DL (1.5-2.5)
[2016-07-26 21:18] LABS: CREATINE KINASE 293 U/L (39-308)
[2016-07-26 21:33] LABS: CKMB 2.4 NG/ML (0.5-3.6)
[2016-07-26] MEDS: PIPERACIL-TAZO 3.375 GM PREMIX 50 ML IV SCH (22:00)
[2016-07-26] MEDS: methylPREDNISolone SOD SUCC 125 MG/2 ML VIAL IV PUSH SCH (22:00)
[2016-07-26] MEDS ORDERED: MIDAZOLAM 100 MG/NS 100 ML DRIP Premix IV SCH (22:30)
[2016-07-27] VITALS (24 sets, daily range): BP systolic 87–114; BP diastolic 50–57; PULSE 66–93; RESP 14–58; TEMP 98.4–99.3; O2SAT 21–100
[2016-07-27] MEDS: SODIUM CHLOR 0.9% 1000 ML INJ 1,000 ML IV SCH ×3 (00:01→13:04)
[2016-07-27 03:21] LABS: AUTOMATED NEUTROPHIL # 8.1 TH/MM3 (1.8-7.7); BASOPHIL % 0.2 % (0.0-2.0); HEMATOCRIT 25.7 % (39.0-51.0); LYMPH % 5.6 % (9.0-44.0); LYMPHOCYTE # 0.5 TH/MM3 (1.0-4.8); MEAN CELL VOLUME 76.6 FL (80.0-100.0); MEAN CORPUSCULAR HEMOGLOBIN 25.5 PG (27.0-34.0); MEAN CORPUSCULAR HGB CONC 33.2 % (32.0-36.0); MONO % 2.9 % (0.0-8.0); NEUT % 91.3 % (16.0-70.0); PLATELET COUNT 148 TH/MM3 (150-450); RED BLOOD COUNT 3.35 MIL/MM3 (4.50-5.90); RED CELL DISTRIBUTION WIDTH 24.3 % (11.6-17.2); WHITE BLOOD COUNT 8.9 TH/MM3 (4.0-11.0)
[2016-07-27 03:25] LABS: HEMO FLAGS AUTO DIFF
[2016-07-27 03:58] LABS: ALT (GPT) 13 U/L (12-78); ANION GAP 9 MEQ/L (5-15); AST (GOT) 24 U/L (15-37); BICARBONATE 21.9 MEQ/L (21.0-32.0); BLOOD UREA NITROGEN 57 MG/DL (7-18); CHLORIDE 120 MEQ/L (98-107); GLOMERULAR FILTRATION RATE 28 ML/MIN (>89); MAGNESIUM 2.1 MG/DL (1.5-2.5); POTASSIUM 3.4 MEQ/L (3.5-5.1); SODIUM (NA) 151 MEQ/L (136-145)
[2016-07-27] MEDS: CHLORHEXIDINE GLUCONATE 2 % 1 PACK (2 CLOTHS) TOP SCH (04:00)
[2016-07-27] MEDS: RESP: ALBUTEROL 2.5 MG/IPRATROPIUM 0.5 MG NEB (SCH) NEB ×4 (04:07→21:42)
[2016-07-27 04:13] LABS: ALKALINE PHOSPHATASE 23 U/L (45-117); CREATINE KINASE 159 U/L (39-308); TOTAL BILIRUBIN ADULT 1.8 MG/DL (0.2-1.0); TRANSFERRIN IRON PROFILE 167 MG/DL (200-360)
[2016-07-27] MEDS: PANTOPRAZOLE INJ 80 MG in SODIUM CHLORIDE 0.9% INJ 100 ML IV SCH ×3 (04:20→23:31)
[2016-07-27] MEDS: PIPERACIL-TAZO 3.375 GM PREMIX 50 ML IV SCH ×4 (04:21→22:09)
[2016-07-27 04:29] LABS: CKMB 1.4 NG/ML (0.5-3.6)
--- NOTE | 2016-07-27 04:32 | RADRPT ---
EXAM DATE/TIME: 07/27/2016 03:16 [facility] COMPARISON: CHEST SINGLE AP, July 26, 2016, 15:42. INDICATIONS : Shortness of breath, possible pulmonary disease. MEDICAL HISTORY : None. SURGICAL HISTORY : None. ENCOUNTER: Subsequent ACUITY: 2 days PAIN SCORE: Non-responsive. LOCATION: Bilateral chest FINDINGS: A single view of the chest demonstrates new opacification of the left hemidiaphragm suggesting left l ower lobe infiltrate. Nasogastric tube is in good position with the tip barely entering the stomach. Endotracheal tube is in good position. Right lung is clear.. The cardiomediastinal contours are unre markable. Osseous structures are intact. CONCLUSION: New significant consolidation left lower lobe possible left lower lobe collapse. Right lung is clear Pritesh Horan MD on July 27, 2016 at 4:30 Board Certified Radiologist. This report was verified electronically.
[2016-07-27 04:33] LABS: CRENATED RBCS 2+ (NORMAL); OVALOCYTES 1+ (NORMAL); PLATELET ESTIMATE SMEAR LOW (NORMAL); PLATELET MORPHOLOGY NORMAL (NORMAL); SCAN/DIFF AUTO DIFF CONFIRMED; TEARDROP RBCS 1+ (NORMAL)
[2016-07-27] MEDS: methylPREDNISolone SOD SUCC 125 MG/2 ML VIAL IV PUSH SCH ×2 (08:45→22:08)
[2016-07-27] MEDS: CHLORHEXIDINE 0.12% (ORAL KIT) 15 ML CUP MT SCH ×2 (08:50→22:08)
--- NOTE | 2016-07-27 12:01 | PD.CONS ---
HPI History of Present Illness This is a 71 year old [male] who per EMR was found unresponsive in his home by his roommate, was brought by EMS and found to have hgb 4.4, hemoccult pos, and wbc 13 on admission. He has hx AF. Per RN there are no signs of active bleeding currently, nor were there when patient was found. He has received 4 x prbc and hgb is up 8.5. There is currently no one to give consents for procedures. (Miriam Willett) PFSH Past Medical History PE 2011 Past Surgical History UNK (Miriam Willett) Coded Allergies: No Known Allergies (Unverified , 07/26/16) Family History UNK Social History per EMR smoker (Miriam Willett) Review of Systems ROS pt intubated (Miriam Willett) GI Exam Vitals I&O Vital Signs Date Time Temp Pulse Resp B/P Pulse Ox O2 Delivery O2 Flow Rate FiO2 07/27/16 11:30 99 40 07/27/16 08:17 97 40 07/27/16 06:00 80 07/27/16 04:10 21 40 07/27/16 04:00 80 07/27/16 04:00 99.3 80 40 87/51 100 07/27/16 04:00 40 07/27/16 02:00 78 07/27/16 01:14 100 40 07/27/16 00:00 91 07/27/16 00:00 98.8 91 40 91/50 96 07/26/16 20:00 99.0 79 46 99/49 87 07/26/16 19:47 100 100 07/26/16 19:47 97 50 07/26/16 19:19 99.2 85 19 106/57 98 Ventilator 50 07/26/16 19:00 99.0 87 14 106/57 97 Ventilator 50 07/26/16 19:00 99.0 87 14 106/57 97 Ventilator 50 07/26/16 18:30 118 14 102/58 97 Ventilator 50 07/26/16 18:00 136 14 118/77 98 Ventilator 50 07/26/16 17:27 97 50 07/26/16 17:10 128 16 136/60 98 Ventilator 50 07/26/16 17:00 95 100 07/26/16 16:16 101.1 116 16 93/55 98 Ventilator 50 07/26/16 16:15 148 30 Venturi Mask 07/26/16 16:00 98 50 07/26/16 15:35 98 100 07/26/16 15:12 155 30 108/57 I/O 07/26/16 07/26/16 07/26/16 07/27/16 07/27/16 07/27/16 07:00 15:00 23:00 07:00 15:00 23:00 Intake Total 2225 ml Output Total 450 ml Balance 1775 ml Intake Oral 0 ml IV Total 2225 ml Output Urine Total 450 ml # Bowel Movements 1 Imaging Last Impressions Chest X-Ray 07/27/16 0000 Signed Impressions: Service Date/Time: Wednesday, July 27, 2016 03:16 - CONCLUSION: New significant consolidation left lower lobe possible left lower lobe collapse. Right lung is clear Pritesh Horan MD Head CT 07/26/16 1534 Signed Impressions: Service Date/Time: Tuesday, July 26, 2016 16:47 - CONCLUSION: 1. 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 2. No acute intracranial abnormality. David Montes MD Abdomen/Pelvis CT 07/26/16 0000 Signed Impressions: Service Date/Time: Tuesday, July 26, 2016 16:52 - CONCLUSION: 1. Infrarenal abdominal aortic aneurysm measures 3.4 cm. Aneurysmal dilatation right common iliac artery. 2. 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 3. Prominence of the left adrenal gland. David Montes MD Laboratory Test 07/26/16 07/26/16 07/26/16 07/26/16 15:38 15:39 15:40 15:53 Lactic Acid Level 6.2 mmol/L Ammonia 23 MCMOL/L Urine Color YELLOW Urine Turbidity HAZY Urine pH 5.5 Urine Specific [place] 1.014 Urine Protein 30 mg/dL Urine Glucose (UA) NEG mg/dL Urine Ketones NEG mg/dL Urine Occult Blood TRACE Urine Nitrite NEG Urine Bilirubin NEG Urine Urobilinogen LESS THAN 2.0 MG/DL Urine Leukocyte Esterase NEG Urine RBC 3-5 /hpf Urine WBC 0-2 /hpf Urine Squamous Epithelial 0-5 /hpf Cells Urine Amorphous Sediment LARGE Urine Bacteria NONE /hpf Microscopic Urinalysis Comment CULT NOT INDICATED White Blood Count 13.0 TH/MM3 Red Blood Count 2.27 MIL/MM3 Hemoglobin 4.4 GM/DL Hematocrit 15.4 % Mean Corpuscular Volume 67.8 FL Mean Corpuscular Hemoglobin 19.5 PG Mean Corpuscular Hemoglobin 28.7 % Concent Red Cell Distribution Width 20.0 % Platelet Count 236 TH/MM3 Mean Platelet Volume 8.5 FL Neutrophils (%) (Auto) 83.2 % Lymphocytes (%) (Auto) 10.4 % Monocytes (%) (Auto) 6.4 % Eosinophils (%) (Auto) 0.0 % Basophils (%) (Auto) 0.0 % Neutrophils # (Auto) 10.8 TH/MM3 Lymphocytes # (Auto) 1.4 TH/MM3 Monocytes # (Auto) 0.8 TH/MM3 Eosinophils # (Auto) 0.0 TH/MM3 Basophils # (Auto) 0.0 TH/MM3 CBC Comment AUTO DIFF Differential Comment AUTO DIFF CONFIRMED Platelet Estimate NORMAL Platelet Morphology Comment NORMAL Prothrombin Time 13.4 SEC Prothromb Time International 1.2 RATIO Ratio Activated Partial 26.4 SEC Thromboplast Time Sodium Level 148 MEQ/L Potassium Level 4.0 MEQ/L Chloride Level 116 MEQ/L Carbon Dioxide Level 16.8 MEQ/L Anion Gap 15 MEQ/L Blood Urea Nitrogen 60 MG/DL Creatinine 2.73 MG/DL Estimat Glomerular Filtration 23 ML/MIN Rate Random Glucose 159 MG/DL Calcium Level 8.8 MG/DL Phosphorus Level 4.4 MG/DL Magnesium Level 2.3 MG/DL Total Bilirubin 0.8 MG/DL Aspartate Amino Transf 16 U/L (AST/SGOT) Alanine Aminotransferase 9 U/L (ALT/SGPT) Alkaline Phosphatase 24 U/L Total Creatine Kinase 233 U/L Creatine Kinase MB 1.1 NG/ML Troponin I 0.53 NG/ML Total Protein 6.9 GM/DL Albumin 2.1 GM/DL Lipase 160 U/L Ethyl Alcohol Level LESS THAN 3 MG/DL Blood Gas Puncture Site RT RADIAL Blood Gas Patient Temperature 98.6 Blood Gas HCO3 17 mmol/L Blood Gas Base Excess -8.2 mmol/L Blood Gas Oxygen Saturation 98 % Arterial Blood pH 7.33 Arterial Blood Partial 33 mmHg Pressure CO2 Arterial Blood Partial 402 mmHG Pressure O2 Arterial Blood Oxygen Content 6.7 Vol % Arterial Blood 2.0 % Carboxyhemoglobin Arterial Blood Methemoglobin 0.6 % Blood Gas Hemoglobin 4.1 G/DL Oxygen Delivery Device VENTILATOR Blood Gas Ventilator Setting A/C16/500/PEEP5 Blood Gas Inspired Oxygen 100 % Test 07/26/16 07/26/16 07/26/16 07/26/16 16:20 17:45 18:13 18:30 Blood Type O POSITIVE O POSITIVE Antibody Screen NEGATIVE Crossmatch Leukocyte-Reduced Red Blood Cells Blood Bank Comment Blood Gas Puncture Site RT RADIAL Blood Gas Patient Temperature 98.6 Blood Gas HCO3 19 mmol/L Blood Gas Base Excess -5.9 mmol/L Blood Gas Oxygen Saturation 97 % Arterial Blood pH 7.37 Arterial Blood Partial 33 mmHg Pressure CO2 Arterial Blood Partial 151 mmHG Pressure O2 Arterial Blood Oxygen Content 6.3 Vol % Arterial Blood 2.1 % Carboxyhemoglobin Arterial Blood Methemoglobin 0.4 % Blood Gas Hemoglobin 4.4 G/DL Oxygen Delivery Device VENTILATOR Blood Gas Ventilator Setting A/C14/600/PEEP5 Blood Gas Inspired Oxygen 50 % Lactic Acid Level 3.3 mmol/L Test 07/26/16 07/26/16 07/26/16 07/27/16 20:30 20:35 22:40 03:07 Nasal Screen MRSA (PCR) MRSA NOT DETECTED Magnesium Level 2.3 MG/DL 2.1 MG/DL Total Creatine Kinase 293 U/L 159 U/L Creatine Kinase MB 2.4 NG/ML 1.4 NG/ML Troponin I 0.68 NG/ML 1.00 NG/ML Lactic Acid Level 2.8 mmol/L White Blood Count 8.9 TH/MM3 Red Blood Count 3.35 MIL/MM3 Hemoglobin 8.5 GM/DL Hematocrit 25.7 % Mean Corpuscular Volume 76.6 FL Mean Corpuscular Hemoglobin 25.5 PG Mean Corpuscular Hemoglobin 33.2 % Concent Red Cell Distribution Width 24.3 % Platelet Count 148 TH/MM3 Mean Platelet Volume 8.5 FL Neutrophils (%) (Auto) 91.3 % Lymphocytes (%) (Auto) 5.6 % Monocytes (%) (Auto) 2.9 % Eosinophils (%) (Auto) 0.0 % Basophils (%) (Auto) 0.2 % Neutrophils # (Auto) 8.1 TH/MM3 Lymphocytes # (Auto) 0.5 TH/MM3 Monocytes # (Auto) 0.3 TH/MM3 Eosinophils # (Auto) 0.0 TH/MM3 Basophils # (Auto) 0.0 TH/MM3 CBC Comment AUTO DIFF Differential Comment AUTO DIFF CONFIRMED Platelet Estimate LOW Platelet Morphology Comment NORMAL Tear Drop Cells 1+ Ovalocytes 1+ Crenated Cell 2+ Sodium Level 151 MEQ/L Potassium Level 3.4 MEQ/L Chloride Level 120 MEQ/L Carbon Dioxide Level 21.9 MEQ/L Anion Gap 9 MEQ/L Blood Urea Nitrogen 57 MG/DL Creatinine 2.30 MG/DL Estimat Glomerular Filtration 28 ML/MIN Rate Random Glucose 134 MG/DL Calcium Level 7.9 MG/DL Iron Level 53 MCG/DL Total Iron Binding Capacity 234 MCG/DL Percent Iron Saturation 22.7 % Total Bilirubin 1.8 MG/DL Aspartate Amino Transf 24 U/L (AST/SGOT) Alanine Aminotransferase 13 U/L (ALT/SGPT) Alkaline Phosphatase 23 U/L Total Protein 5.8 GM/DL Albumin 1.8 GM/DL Vitamin B12 Level 1000 PG/ML Date/Time Procedure Status Source Growth 07/26/16 19:57 Gram Stain - Final Resulted Sputum Endotracheal 07/26/16 19:57 Sputum Culture Resulted Sputum Endotracheal Pending 07/26/16 15:40 Aerobic Blood Culture - Preliminary Resulted Blood Peripheral Gram Positive Cocci 07/26/16 15:40 Anaerobic Blood Culture - Preliminary Resulted Gram Positive Cocci 07/26/16 15:39 Urine Culture Received Urine Catheterized Urine Pending Physical Examination HEENT: normocephalic; atraumatic; no jaundice. intubated CHEST: CTA CARDIAC: irr HR ABDOMEN: Soft, nondistended, nontender; no hepatosplenomegaly; bowel sounds hypoactive EXTREMITIES: No clubbing, cyanosis, or edema. SKIN: Normal; no rash; no jaundice. 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 (Miriam Willett) Assessment and Plan Plan ASSESSMENT - anemia - hgb 4.4 on admission, s/p PRBC and up to 8.5. No signs bleeding. Currently no one to give consent for procedures PLAN - consider EGD if someone comes forward to give consent - monitor HH - transfuse PRN - notify GI of active bleeding This pt seen by myself and Dr Gastelum and this note is written on his behalf ( Miriam Willett) Physician Comments Seen and examined, discussed with house painter helper, no evidence of active bleeding now and no available consent , agree with trickle feeding and monitor for GI bleeding. Will follow up with you. (Santos Gastelum MD) Miriam Willett Jul 27, 2016 12:01 Santos Gastelum MD Jul 27, 2016 14:01
[2016-07-27 12:31] LABS: ANION GAP 12 MEQ/L (5-15); BICARBONATE 17.7 MEQ/L (21.0-32.0); BLOOD UREA NITROGEN 57 MG/DL (7-18); CHLORIDE 121 MEQ/L (98-107); MAGNESIUM 2.2 MG/DL (1.5-2.5); POTASSIUM 3.4 MEQ/L (3.5-5.1); SODIUM (NA) 151 MEQ/L (136-145)
[2016-07-27 12:37] LABS: ALKALINE PHOSPHATASE 20 U/L (45-117); ALT (GPT) 13 U/L (12-78); AST (GOT) 22 U/L (15-37); CREATINE KINASE 148 U/L (39-308); GLOMERULAR FILTRATION RATE 27 ML/MIN (>89); TOTAL BILIRUBIN ADULT 1.5 MG/DL (0.2-1.0)
--- NOTE | 2016-07-27 12:43 | HHI.CCPN ---
Subjective Remarks/Hospital Course Patient is a 71-year-old male with only known past medical history of tobacco abuse and a possible history of PE in 2011 aas per emergency department notes was brought to the [facility] ED for altered mental status. Apparently patient's roommate found him unresponsive in the morning and after he came back from work patient was still in the same condition not responsive. EMS was called patient was found hypotensive, hypoxemic and given a liter bolus which improved the blood pressure. In the emergency department patient had a GCS of 8. He had a fever 101.1 tachycardic and heart rate 150s. Patient was given additional fluid boluses and was intubated by Dr. Olivre for airway protection. Chest x-ray was unremarkable lab work showed a hemoglobin of 4.1 white count of 13, lactic acid of 6.2 BUN of 16 creatinine of 2.7. For possible sepsis he was given vancomycin and Zosyn. A total of 4 units of PRBC had been ordered and GI consult had been requested. History of Hemoccult was positive. Troponin was slightly elevated could be demand ischemia in renal failure I evaluated the patient in the ED. He appears chronically ill, dishevelled. CT of the head and chest abdomen pelvis is pending at this time. Dr.Al Gastelum with GI had been consulted. IV Protonix gtt. Start Cardizem bolus and drip for A fib with RVR 07/27 Patient is sedated with Versed , fentanyl and intubated. On Protonix drip and Cardizem drip 2mg/hr. Afebrile. Hgb 8.5 this morning from 4.4 yesterday. s/ p transfusion 4units PRBC. Objective Vital Signs Date Time Temp Pulse Resp B/P Pulse Ox O2 Delivery O2 Flow Rate FiO2 07/27/16 11:30 99 40 07/27/16 06:00 80 07/27/16 04:00 99.3 40 87/51 07/26/16 19:19 Ventilator Result Diagram: 07/27/16 03007/27/16 030 Other Results Laboratory Tests Test 07/26/16 07/26/16 07/26/16 07/26/16 15:38 15:39 15:40 15:53 Lactic Acid Level 6.2 mmol/L Ammonia 23 MCMOL/L Urine Color YELLOW Urine Turbidity HAZY Urine pH 5.5 Urine Specific [place] 1.014 Urine Protein 30 mg/dL Urine Glucose (UA) NEG mg/dL Urine Ketones NEG mg/dL Urine Occult Blood TRACE Urine Nitrite NEG Urine Bilirubin NEG Urine Urobilinogen LESS THAN 2.0 MG/DL Urine Leukocyte Esterase NEG Urine RBC 3-5 /hpf Urine WBC 0-2 /hpf Urine Squamous Epithelial 0-5 /hpf Cells Urine Amorphous Sediment LARGE Urine Bacteria NONE /hpf Microscopic Urinalysis Comment CULT NOT INDICATED White Blood Count 13.0 TH/MM3 Red Blood Count 2.27 MIL/MM3 Hemoglobin 4.4 GM/DL Hematocrit 15.4 % Mean Corpuscular Volume 67.8 FL Mean Corpuscular Hemoglobin 19.5 PG Mean Corpuscular Hemoglobin 28.7 % Concent Red Cell Distribution Width 20.0 % Platelet Count 236 TH/MM3 Mean Platelet Volume 8.5 FL Neutrophils (%) (Auto) 83.2 % Lymphocytes (%) (Auto) 10.4 % Monocytes (%) (Auto) 6.4 % Eosinophils (%) (Auto) 0.0 % Basophils (%) (Auto) 0.0 % Neutrophils # (Auto) 10.8 TH/MM3 Lymphocytes # (Auto) 1.4 TH/MM3 Monocytes # (Auto) 0.8 TH/MM3 Eosinophils # (Auto) 0.0 TH/MM3 Basophils # (Auto) 0.0 TH/MM3 CBC Comment AUTO DIFF Differential Comment AUTO DIFF CONFIRMED Platelet Estimate NORMAL Platelet Morphology Comment NORMAL Prothrombin Time 13.4 SEC Prothromb Time International 1.2 RATIO Ratio Activated Partial 26.4 SEC Thromboplast Time Sodium Level 148 MEQ/L Potassium Level 4.0 MEQ/L Chloride Level 116 MEQ/L Carbon Dioxide Level 16.8 MEQ/L Anion Gap 15 MEQ/L Blood Urea Nitrogen 60 MG/DL Creatinine 2.73 MG/DL Estimat Glomerular Filtration 23 ML/MIN Rate Random Glucose 159 MG/DL Calcium Level 8.8 MG/DL Phosphorus Level 4.4 MG/DL Magnesium Level 2.3 MG/DL Total Bilirubin 0.8 MG/DL Aspartate Amino Transf 16 U/L (AST/SGOT) Alanine Aminotransferase 9 U/L (ALT/SGPT) Alkaline Phosphatase 24 U/L Total Creatine Kinase 233 U/L Creatine Kinase MB 1.1 NG/ML Troponin I 0.53 NG/ML Total Protein 6.9 GM/DL Albumin 2.1 GM/DL Lipase 160 U/L Ethyl Alcohol Level LESS THAN 3 MG/DL Blood Gas Puncture Site RT RADIAL Blood Gas Patient Temperature 98.6 Blood Gas HCO3 17 mmol/L Blood Gas Base Excess -8.2 mmol/L Blood Gas Oxygen Saturation 98 % Arterial Blood pH 7.33 Arterial Blood Partial 33 mmHg Pressure CO2 Arterial Blood Partial 402 mmHG Pressure O2 Arterial Blood Oxygen Content 6.7 Vol % Arterial Blood 2.0 % Carboxyhemoglobin Arterial Blood Methemoglobin 0.6 % Blood Gas Hemoglobin 4.1 G/DL Oxygen Delivery Device VENTILATOR Blood Gas Ventilator Setting A/C16/500/PEEP5 Blood Gas Inspired Oxygen 100 % Test 07/26/16 07/26/16 07/26/16 07/26/16 16:20 17:45 18:13 18:30 Blood Type O POSITIVE O POSITIVE Antibody Screen NEGATIVE Crossmatch Leukocyte-Reduced Red Blood Cells Blood Bank Comment Blood Gas Puncture Site RT RADIAL Blood Gas Patient Temperature 98.6 Blood Gas HCO3 19 mmol/L Blood Gas Base Excess -5.9 mmol/L Blood Gas Oxygen Saturation 97 % Arterial Blood pH 7.37 Arterial Blood Partial 33 mmHg Pressure CO2 Arterial Blood Partial 151 mmHG Pressure O2 Arterial Blood Oxygen Content 6.3 Vol % Arterial Blood 2.1 % Carboxyhemoglobin Arterial Blood Methemoglobin 0.4 % Blood Gas Hemoglobin 4.4 G/DL Oxygen Delivery Device VENTILATOR Blood Gas Ventilator Setting A/C14/600/PEEP5 Blood Gas Inspired Oxygen 50 % Lactic Acid Level 3.3 mmol/L Test 07/26/16 07/26/16 07/26/16 07/27/16 20:30 20:35 22:40 03:07 Nasal Screen MRSA (PCR) MRSA NOT DETECTED Magnesium Level 2.3 MG/DL 2.1 MG/DL Total Creatine Kinase 293 U/L 159 U/L Creatine Kinase MB 2.4 NG/ML 1.4 NG/ML Troponin I 0.68 NG/ML 1.00 NG/ML Lactic Acid Level 2.8 mmol/L White Blood Count 8.9 TH/MM3 Red Blood Count 3.35 MIL/MM3 Hemoglobin 8.5 GM/DL Hematocrit 25.7 % Mean Corpuscular Volume 76.6 FL Mean Corpuscular Hemoglobin 25.5 PG Mean Corpuscular Hemoglobin 33.2 % Concent Red Cell Distribution Width 24.3 % Platelet Count 148 TH/MM3 Mean Platelet Volume 8.5 FL Neutrophils (%) (Auto) 91.3 % Lymphocytes (%) (Auto) 5.6 % Monocytes (%) (Auto) 2.9 % Eosinophils (%) (Auto) 0.0 % Basophils (%) (Auto) 0.2 % Neutrophils # (Auto) 8.1 TH/MM3 Lymphocytes # (Auto) 0.5 TH/MM3 Monocytes # (Auto) 0.3 TH/MM3 Eosinophils # (Auto) 0.0 TH/MM3 Basophils # (Auto) 0.0 TH/MM3 CBC Comment AUTO DIFF Differential Comment AUTO DIFF CONFIRMED Platelet Estimate LOW Platelet Morphology Comment NORMAL Tear Drop Cells 1+ Ovalocytes 1+ Crenated Cell 2+ Sodium Level 151 MEQ/L Potassium Level 3.4 MEQ/L Chloride Level 120 MEQ/L Carbon Dioxide Level 21.9 MEQ/L Anion Gap 9 MEQ/L Blood Urea Nitrogen 57 MG/DL Creatinine 2.30 MG/DL Estimat Glomerular Filtration 28 ML/MIN Rate Random Glucose 134 MG/DL Calcium Level 7.9 MG/DL Iron Level 53 MCG/DL Total Iron Binding Capacity 234 MCG/DL Percent Iron Saturation 22.7 % Total Bilirubin 1.8 MG/DL Aspartate Amino Transf 24 U/L (AST/SGOT) Alanine Aminotransferase 13 U/L (ALT/SGPT) Alkaline Phosphatase 23 U/L Total Protein 5.8 GM/DL Albumin 1.8 GM/DL Vitamin B12 Level 1000 PG/ML Imaging Last Impressions Chest X-Ray 07/27/16 0000 Signed Impressions: Service Date/Time: Wednesday, July 27, 2016 03:16 - CONCLUSION: New significant consolidation left lower lobe possible left lower lobe collapse. Right lung is clear Pritesh Horan MD Head CT 07/26/16 1534 Signed Impressions: Service Date/Time: Tuesday, July 26, 2016 16:47 - CONCLUSION: 1. 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 2. No acute intracranial abnormality. David Montes MD Abdomen/Pelvis CT 07/26/16 0000 Signed Impressions: Service Date/Time: Tuesday, July 26, 2016 16:52 - CONCLUSION: 1. Infrarenal abdominal aortic aneurysm measures 3.4 cm. Aneurysmal dilatation right common iliac artery. 2. 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 3. Prominence of the left adrenal gland. David Montes MD Objective Remarks P/E GENERAL: Chronically ill-appearing disheveled male who is intubated, sedated SKIN: Warm and dry. Large wart on L thigh HEAD: Atraumatic. Normocephalic. EYES: Pupils equal and round. ENT: Oral mucosa is dry. Orotracheally intubated NECK: Trachea midline. No JVD. CARDIOVASCULAR: RRR, nl S1, S2. RESPIRATORY: Bilateral equal air entry GASTROINTESTINAL: Abdomen soft, non-tender, nondistended. MUSCULOSKELETAL: No obvious deformities. No clubbing. No cyanosis. No edema. NEUROLOGICAL: Intubated, sedated A/P Assessment and Plan NEURO: Acute encephalopathy most likely metabolic Previous CVA with encephalomalacia -On Fentanyl and Versed infusion fro sedation. d/c Versed. Daily sedation vacation. -CT head shows old infarcts without any acute findings, -EEG ordered pending -Check Urine drug screen RESP: Acute hypoxemic respiratory failure Acute COPD exacerbation Tobacco abuse -Continue with vent support keep sat >92% -DuoNeb every 6 hours and when necessary -IV Solu-Medrol 60 every 12 -Broad-spectrum antibiotics with vancomycin and Zosyn CV: Septic and hypovolemic shock Atrial fibrillation with RVR Lactic acidosis ..resolving Elevated trop -Monitor HR and BP keep MAP>65mmHg -Serial Lactic acid monitoring -Monitor troponin's, check 2D echo, cards eval. -Patient is not a candidate for ASA or AC due to GI bleed. GI: GI bleed 3.4 cm infrarenal AAA -s/p Transfuse 4U PRBC.07/26 -GI consulted Dr. Callahan. Will likely need endoscopy -Continue IV Protonix infusion -No intervention needed for AAA at this time : Acute kidney failure ..improving Hypernatremia -Monitor renal function , I/O's, electrolytes replacement as needed -Change IVF D5W@84ml/hr, place on Free water 250ml Q8. Monitor sodium level. -Cr: 2.42 today from 2.30, renal eval. CT abd/pelvis: absence right kidney, no hydro on left. ID: Sepsis Gram positive bacteremia -Continue Zosyn and vancomycin. Monitor for signs of infections ( Fever, WBC) -07/26 BC : GPC 4 bottles, check BC x 2 sets today, ID eval. HEME: Severe anemia requiring transfusion GI bleed -s/p Transfusion 4 units PRBC 07/26 -Monitor CBC, CMP, coags ENDO: -Electrolyte replacement per protocol PROPH: -Bilateral lower extremity SCDs/ANGELITO. Protonix gtt. chemical DVT prophylaxis contraindicated due to GI bleed LINES: D -Utilize peripheral IVs, central line if needed CCT 30 mins Cinthia Israel MD Jul 27, 2016 12:43
[2016-07-27] MEDS ORDERED: Vancomycin Consult Pharmacy 1 EA OTHER SCH (12:45)
[2016-07-27 12:51] LABS: CKMB 1.4 NG/ML (0.5-3.6)
[2016-07-27] MEDS ORDERED: DEXT 5%-NACL 0.9% 1000 ML INJ 1,000 ML IV SCH (13:00)
[2016-07-27] MEDS: FREE WATER G-TUBE SCH ×2 (13:04→22:00)
[2016-07-27 15:39] LABS: AMPHETAMINE, URINE NEG (NEG); BARBITURATES, URINE NEG (NEG); COCAINE, URINE NEG (NEG)
--- NOTE | 2016-07-27 16:03 | MB ---
cc: JENNIFER PHILLIPS DATE OF CONSULTATION: 07/27/2016 1946 REASON FOR CONSULTATION Elevated troponins. HISTORY OF PRESENT ILLNESS 71-year-old male with past medical history significant for tobacco abuse, history of PE, that presented to the emergency department via EMS for altered mental status. According to the chart he was found by roommate unresponsive in the morning. EMS found him hypotensive, hypoxemic with a Carrington Coma Scale of 8 and he was brought into the emergency department. In the emergency department he was found to be tachycardic with a temperature of 101, heart rate in the 150s. Basic labs showed severe anemia as well as leukocytosis, elevated lactic acid and acute kidney injury. Also further analysis of blood cultures revealed gram-positive cocci which he was started on antibiotics and was admitted to the ICU. Of note, the patient was intubated in the ER for airway protection. Cardiology has been consulted because of elevated troponins. REVIEW OF SYSTEMS A review of systems cannot be obtained due to intubated, sedated. PAST MEDICAL HISTORY PE in 2011. PAST SURGICAL HISTORY Unobtainable. ALLERGIES NO KNOWN DRUG ALLERGIES. FAMILY HISTORY Unobtainable. SOCIAL HISTORY Smoking, per records. MEDICATION Home medications unobtainable. PHYSICAL EXAMINATION VITAL SIGNS: Temperature 99.1, coming down from 101, respiratory rate 22, heart rate 81, blood pressure 93/54, O2 sat is 100% intubated. band shover showing normal sinus rhythm. GENERAL: He is sedated, intubated, no acute distress. NECK: No JVD. No carotid bruits. Endotracheal tube is place. HEART: Regular rate and rhythm. No murmurs, rubs or gallops. LUNGS: No crackles or rhonchi. He is vented. ABDOMEN: Soft, nontender, nondistended. Positive bowel sounds. EXTREMITIES: No cyanosis or edema. Pulses throughout. LABORATORY DATA CBC, initial hemoglobin of 4.4 trending up to 8.5 after transfusion, hematocrit 15 trending up to 25, platelet count 236. INR 1.2. Electrolytes, sodium 151, potassium 3.4, BUN 57, creatinine 2.42 trending down from 2.73. Lactic acid 6.2 trending down to 2.8, troponin 0.5, 0.61 and 0.86. Urinalysis shows large amount of protein, hazy. Toxicology pending. Microbiology, there is two blood cultures showing gram-positive cocci. IMAGING STUDIES Chest x-ray: There is a consolidation in the left lower lobe. 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 Chest x-ray: No acute cardiopulmonary process. Abdomen and pelvic CT: Shows infrarenal abdominal aortic aneurysms, absence of the right kidney. EKG Shows possible atrial fibrillation with RVR. ASSESSMENT/PLAN 71-year-old male admitted with altered mental status, found to be severely anemic with positive blood in stools, bacteremia and PNA. He remains critically ill, sedated, intubated and hemodynamically stable off pressors. He does not have any cardiovascular history at least in this hospital and no reports on records of any cardiovascular complaints at home. Mildly elevated troponins are due to his sepsis and hypovolemic shock from the GI bleeding causing demand ischemia. Thus, at this point I would treat the underlying issues GI and sepsis. Agree to get a 2-D echocardiogram to assess LV systolic function. Patient is not a candidate for invasive cardiac work out at this time. RECOMMENDATIONS 1. Treat underlying cause of sepsis and GI bleeding. 2. The patient is not a candidate for any invasive cardiac workup given sepsis and severe anemia. 3. Start primary prevention for CAD as soon as blood pressure, heart rate and hemoglobin tolerates. Thank you for the opportunity to participate in the care of this patient. Will be available on a p.r.n. basis for any other questions or concerns. MD SAVANAH Lopez/TLL /1:32 PM /3:39 PM KASSIDY
--- NOTE | 2016-07-27 16:10 | EKG ---
Date Performed: 07/26/2016 Time Performed: 15:12:48 PTAGE: 71 years EKG: ATRIAL FIBRILLATION WITH RAPID VENTRICULAR RESPONSE MARKED BASELINE ARTIFACT MAKES IT SUBST ANDARD FOR INTERPRETATION. PROMINENT ST-T WAVE DEPRESSION SUGGESTIVE OF ISCHEMIA ABNORMAL ECG NO PREVIOUS TRACING TO COMPARE WITH. DOCTOR: Ernesto Yu Interpretating Date/Time 07/27/2016 16:09:16
--- NOTE | 2016-07-27 16:12 | EKG ---
Date Performed: 07/26/2016 Time Performed: 15:36:53 PTAGE: 71 years EKG: ATRIAL FIBRILLATION WITH RAPID VENTRICULAR RESPONSE ST-T DEPRESSIONS SUGGESTIVE OF ISCHEMIA . SIMILAR TO THE PRIOR TRACING, BUT NOT MARKED. VENTRICULAR RATE IS SLIGHTLY SLOWER FROM THE PRIOR TRACING. ABNORMAL ECG PREVIOUS TRACING : 07/26/2016 15.12 DOCTOR: Ernesto Yu Interpretating Date/Time 07/27/2016 16:10:47
[2016-07-27] MEDS ORDERED: POTASSIUM CHLORIDE 20 MEQ PWD PACKET PO ONE (16:15)
--- NOTE | 2016-07-27 16:21 | PD.CONS ---
HPI Service Nephrology Consult Requested By Reason for Consult Acute renal failure Primary Care Physician Unknown History of Present Illness This is a 71 y/o male who was brought in yesterday unresponsive. Apparently his roommate found him altered in the morning, went to work and called 911 when the patient was in the same condition after his return. No information is available in terms of PMH, but he does have a hx of smoking and previous ER visit for INR evaluation. He was on Coumadin and Lovenox for DVT in 2011. On arrival he was febrile, tachycardic in A fib RVR, and hypotensive. Lactic acid measured 6.2. He is severely anemic with first Hb measured at 4.1, he was given 4 units PRBC, Hb corrected to over 8.5. Hemoccult is positive. He was hypoxic and intubated in ER for airway protection. He initially responded to IVF, has received 3 liters NS, is on the 4th at 150 cc/hr. Creatinine was 2.7 in the ER, which improved to 2.3, is 2.4 today. BUN 57, Co2 17.2, Na 151, K 3.3. troponin wa 0.68 , 1.0, and 0.86 on serial testing. He is oliguric, 300 ml urine output from 7a- 3pm today. He is a full code at this time, is unable to answer questions. ( Nohemy Walker) Review of Systems ROS Limitations: Intubated, Altered Mental Status (Nohemy Walker) Past Family Social History Allergies: Coded Allergies: No Known Allergies (Unverified , 07/26/16) Past Medical History Prior DVT tobacco abuse Past Surgical History unable to obtain Reported Medications unable to obtain Active Ordered Medications Current Medications Medications (Trade) Dose Ordered Sig/Baltazar Route Start Time Stop Time Status Last Admin Pantoprazole Sodium 80 mg/ Sodium Chloride 100 ml @ 10 mls/hr Q10H IV 07/26/16 17:30 07/27/16 13:03 Piperacillin Sod/ Tazobactam Sod 50 ml @ 100 mls/hr Q6H IV 07/26/16 22:00 07/27/16 10:42 Pharmacy Profile Note 0 ml @ 0 mls/hr UNSCH OTHER 07/26/16 17:00 (NS 1000 ml Inj) 1,000 ml @ 150 mls/hr Q6H40M IV 07/26/16 17:21 07/27/16 13:04 (Tylenol) 650 mg Q6H PRN PO 07/26/16 17:30 (Morphine Inj) 2 mg Q2H PRN IV 07/26/16 17:30 (Peridex 0.12% Liq) 15 ml BID@08,20 MT 07/26/16 20:00 07/27/16 08:50 Miscellaneous Information 1 Q361D XX 07/26/16 17:30 (Chlorhexidine 2% Cloth) 3 pack Taper DAILY@04 TOP 07/27/16 04:00 07/23/17 03:59 07/27/16 04:00 Chlorhexidine Gluconate 3 pack 3 pack UNSCH PRN TOP 07/26/16 17:30 (Diprivan 1000 Mg/100ml Inj) 100 ml @ 0 mls/hr TITRATE IV 07/26/16 17:30 Methylprednisolone Sodium Succinate 60 mg 60 mg Q12HR IV PUSH 07/26/16 21:00 07/27/16 08:45 (Vancomycin Inj/ NS 250 ml Inj) 262 ml @ 250 mls/hr Q36H IV 07/27/16 22:00 Miscellaneous Information SPECIFIC LAB TO BE DRAWN:VANCO TROUGH DATE TO BE DR... ONCE ONCE .XX 07/29/16 09:45 07/29/16 09:46 Fentanyl Citrate 250 ml @ 0 mls/hr TITRATE IV 07/26/16 22:30 (D5W-NS 1000 ml Inj) 1,000 ml @ 84 mls/hr [id number] IV 07/27/16 13:00 (Free Water) 250 ml Q8HR G-TUBE 07/27/16 14:00 07/27/16 13:04 Family History unable to obtain Social History history of smoking, otherwise unable to obtain (Nohemy Walker) Physical Exam Vital Signs Vital Signs Date Time Temp Pulse Resp B/P Pulse Ox O2 Delivery O2 Flow Rate FiO2 07/27/16 15:24 98 40 07/27/16 14:00 80 07/27/16 12:00 99.1 81 22 93/54 96 07/27/16 12:00 81 07/27/16 12:00 40 07/27/16 11:30 99 40 07/27/16 11:00 87 18 102/50 98 07/27/16 10:00 93 07/27/16 10:00 93 20 109/56 98 07/27/16 09:00 80 22 93/52 100 07/27/16 08:17 97 40 07/27/16 08:00 76 07/27/16 08:00 40 07/27/16 08:00 99.0 76 27 92/54 97 07/27/16 07:00 79 43 88/52 100 07/27/16 06:00 80 07/27/16 04:10 21 40 07/27/16 04:00 80 07/27/16 04:00 99.3 80 40 87/51 100 07/27/16 04:00 40 07/27/16 02:00 78 07/27/16 01:14 100 40 07/27/16 00:00 91 07/27/16 00:00 98.8 91 40 91/50 96 07/26/16 20:00 99.0 79 46 99/49 87 07/26/16 19:47 100 100 07/26/16 19:47 97 50 07/26/16 19:19 99.2 85 19 106/57 98 Ventilator 50 07/26/16 19:00 99.0 87 14 106/57 97 Ventilator 50 07/26/16 19:00 99.0 87 14 106/57 97 Ventilator 50 07/26/16 18:30 118 14 102/58 97 Ventilator 50 07/26/16 18:00 136 14 118/77 98 Ventilator 50 07/26/16 17:27 97 50 07/26/16 17:10 128 16 136/60 98 Ventilator 50 07/26/16 17:00 95 100 07/26/16 16:16 101.1 116 16 93/55 98 Ventilator 50 07/26/16 16:15 148 30 Venturi Mask 07/26/16 16:00 98 50 Physical Exam Elderly male, disheveled appears chronically ill he is intubated, sedated but nods head yes/no to questions CV: S1/S2, rate 90s, systolic murmur, difficult to auscultate Resp: vented, course throughout GI: flat, normal active bowel sounds : no scrotal edema, burroughs draining Ext: no edema Skin: intact Laboratory Laboratory Tests Test 07/26/16 07/26/16 07/26/16 07/26/16 15:53 16:20 17:45 18:13 Blood Gas Puncture Site RT RADIAL RT RADIAL Blood Gas Patient Temperature 98.6 98.6 Blood Gas HCO3 17 19 Blood Gas Base Excess -8.2 -5.9 Blood Gas Oxygen Saturation 98 97 Arterial Blood pH 7.33 7.37 Arterial Blood Partial 33 33 Pressure CO2 Arterial Blood Partial 402 151 Pressure O2 Arterial Blood Oxygen Content 6.7 6.3 Arterial Blood 2.0 2.1 Carboxyhemoglobin Arterial Blood Methemoglobin 0.6 0.4 Blood Gas Hemoglobin 4.1 4.4 Oxygen Delivery Device VENTILATOR VENTILATOR Blood Gas Ventilator Setting A/C16/500/PEEP5 A/C14/600/PEEP5 Blood Gas Inspired Oxygen 100 50 Blood Type O POSITIVE O POSITIVE Antibody Screen NEGATIVE Crossmatch Leukocyte-Reduced Red Blood Cells Blood Bank Comment Test 07/26/16 07/26/16 07/26/16 07/26/16 18:30 20:30 20:35 22:40 Lactic Acid Level 3.3 2.8 Nasal Screen MRSA (PCR) MRSA NOT DETECTED Magnesium Level 2.3 Total Creatine Kinase 293 Creatine Kinase MB 2.4 Troponin I 0.68 Test 07/27/16 07/27/16 03:07 11:35 White Blood Count 8.9 Red Blood Count 3.35 Hemoglobin 8.5 Hematocrit 25.7 Mean Corpuscular Volume 76.6 Mean Corpuscular Hemoglobin 25.5 Mean Corpuscular Hemoglobin 33.2 Concent Red Cell Distribution Width 24.3 Platelet Count 148 Mean Platelet Volume 8.5 Neutrophils (%) (Auto) 91.3 Lymphocytes (%) (Auto) 5.6 Monocytes (%) (Auto) 2.9 Eosinophils (%) (Auto) 0.0 Basophils (%) (Auto) 0.2 Neutrophils # (Auto) 8.1 Lymphocytes # (Auto) 0.5 Monocytes # (Auto) 0.3 Eosinophils # (Auto) 0.0 Basophils # (Auto) 0.0 CBC Comment AUTO DIFF Differential Comment AUTO DIFF CONFIRMED Platelet Estimate LOW Platelet Morphology Comment NORMAL Tear Drop Cells 1+ Ovalocytes 1+ Crenated Cell 2+ Sodium Level 151 151 Potassium Level 3.4 3.4 Chloride Level 120 121 Carbon Dioxide Level 21.9 17.7 Anion Gap 9 12 Blood Urea Nitrogen 57 57 Creatinine 2.30 2.42 Estimat Glomerular Filtration 28 27 Rate Random Glucose 134 154 Calcium Level 7.9 8.3 Magnesium Level 2.1 2.2 Iron Level 53 Total Iron Binding Capacity 234 Percent Iron Saturation 22.7 Total Bilirubin 1.8 1.5 Aspartate Amino Transf 24 22 (AST/SGOT) Alanine Aminotransferase 13 13 (ALT/SGPT) Alkaline Phosphatase 23 20 Total Creatine Kinase 159 148 Creatine Kinase MB 1.4 1.4 Troponin I 1.00 0.86 Total Protein 5.8 5.8 Albumin 1.8 1.7 Vitamin B12 Level 1000 Date/Time Procedure Status Source Growth 07/27/16 13:00 Legionella Antigen Received Urine Catheterized Urine Pending 07/27/16 13:00 Streptococcus pneumoniae Antigen (M Received Urine Catheterized Urine Pending 07/26/16 19:57 Gram Stain - Final Resulted Sputum Endotracheal 07/26/16 19:57 Sputum Culture - Preliminary Resulted Sputum Endotracheal IMMATURE GROWTH - REINCUBATE 07/26/16 15:40 Aerobic Blood Culture - Preliminary Resulted Blood Peripheral Gram Positive Cocci 07/26/16 15:40 Anaerobic Blood Culture - Preliminary Resulted Gram Positive Cocci 07/26/16 15:39 Urine Culture - Preliminary Resulted Urine Catheterized Urine NO GROWTH IN 24 HOURS. (Nohemy Walker [facility]) Result Diagram: 07/27/16 0307 07/27/16 1135 Imaging Last 72 hours Impressions Chest X-Ray 07/27/16 0000 Signed Impressions: Service Date/Time: Wednesday, July 27, 2016 03:16 - CONCLUSION: New significant consolidation left lower lobe possible left lower lobe collapse. Right lung is clear Pritesh Horan MD Head CT 07/26/16 1534 Signed Impressions: Service Date/Time: Tuesday, July 26, 2016 16:47 - CONCLUSION: 1. 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 2. No acute intracranial abnormality. David Montes MD Chest X-Ray 07/26/16 1533 Signed Impressions: Service Date/Time: Tuesday, July 26, 2016 15:42 - CONCLUSION: No acute disease. Endotracheal tube 7 cm above the kari. David Montes MD Abdomen/Pelvis CT 07/26/16 0000 Signed Impressions: Service Date/Time: Tuesday, July 26, 2016 16:52 - CONCLUSION: 1. Infrarenal abdominal aortic aneurysm measures 3.4 cm. Aneurysmal dilatation right common iliac artery. 2. 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 3. Prominence of the left adrenal gland. David Montes MD (Nohemy Walker) Assessment and Plan Problem List: (1) Acute kidney failure Plan: in a patient with no labs for comparison TAMMY may be due to intravascular volume depletion, also with sepsis and end organ (renal) hyperperfusion he was also hypotensive; may have progressed to ATN he is now oliguric, imaging not suggesting hydronephrosis but only appears to have a solitary (left) kidney replace potassium IV check urine electrolytes (FeNa) change IVF to D5W with 75mEq Hco3 at 75 cc/hr borderline low BP, use pressors if needed to maintain adequate MAP follow renal function and electrolytes (2) Severe anemia Plan: Hemoccult positive, see below also microcytic anemia, slight iron deficiency avoid Venofer in light of sepsis (3) Septic shock Plan: unknown source, suspected pneumonia he was given vancomycin and Zosyn in ER, ID to consult legionella antigen in urine is in process (4) Elevated troponin Plan: possibly due to demand ischemia from A fib RVR cardiology has been consulted (5) Acute respiratory failure Plan: intubated, on A/C mode settings: 14/600/40/5 Respiratory and public relations sales marketing to manage (6) Hypernatremia Plan: stop 0.9%, change IVF to D5W with bicarbonate free water added with tube feeding (7) GI (gastrointestinal bleed) Plan: GI to consult on Protonix gtt follow Hb (8) Atrial fibrillation with rapid ventricular response Plan: he has converted to sinus rhythm monitor for recurrence Assessment and Plan Thank you for the consult. We will follow. prognosis is guarded (Nohemy Walker) Assessment and Plan patient was seen and examined. No baseline renal function is available for comparison. Patient may have suffered ATN. He is hypernatremic. Continue D5W with bicarb. Antibiotics per ID. Has positive blood culture. Avoid nephrotoxic agents. Monitor urine output and renal function. Prognosis is guarded. Agree with above assessment and plan. (Charly Rose MD) Problem Qualifiers (1) Acute kidney failure: Qualified Code: N17.9 - Acute renal failure, unspecified acute renal failure type (2) Acute respiratory failure: Qualified Code: J96.00 - Acute respiratory failure, unspecified whether with hypoxia or hypercapnia Nohemy Walker Jul 27, 2016 16:21 Charly Rose MD Jul 27, 2016 17:40
--- NOTE | 2016-07-27 16:23 | MG ---
cc: JOSE BARRERA M.D. Lab No: [id number] Date: 07/27/2016 Age: Sex: M Race: TECHNIQUE 17-channel EEG. DESCRIPTION: The background rhythm is generally slow mainly in the theta and delta frequencies ranging from 3 Hz to 5 Hz, amplitude is about 20-30 microvolts. There are no lateralizing features seen. There are no epileptiform discharges. There is occasional muscle artifact present. There is some sharp activity posteriorly but I think this is muscle artifact. INTERPRETATION Abnormal study consistent with a diffuse encephalopathy. MD KG Muniz/PUNEET /4:01 PM /4:09 PM
[2016-07-27 16:31] LABS: REVIEW FLAG FINAL
[2016-07-27] MEDS: NACL 0.9% IV SCH (17:02)
[2016-07-27] MEDS: fentaNYL 2,500 MCG/NS 250 ML IV SCH (17:02)
[2016-07-27] MEDS: SODIUM BICARBONATE IV SCH (17:02)
[2016-07-27] MEDS: DEXT 5% IV SCH (17:02)
--- NOTE | 2016-07-27 17:11 | PD.CONS ---
History of Present Illness Service Infectious disease Consult Requested By Dr Fuad Israel Reason for Consult Evaluate patient with positive blood culture Primary Care Physician Unknown Diagnoses: History of Present Illness Patient seen and examined. Records reviewed. Patient is a 71-year-old male, brought into the hospital after he was found unresponsive. He apparently has a roommate and when he left the morning patient was question asleep or unresponsive. His ROM A went to work and when he came back patient was found in the same position in same location. EMS was called and patient was found to be hypotensive and hypoxic. Patient was given fluid resuscitation and brought into the emergency room. He ended up getting intubated in the emergency room. In the ER he was febrile, and tachycardic. He was given more fluid resuscitation. He was found to have a hemoglobin of 4.4. Creatinine was 2.7, and lactic acid was 6.2. His troponin was elevated. He was in atrial fibrillation with RVR. He was placed on Cardizem and has converted to normal sinus rhythm. Patient remains on the vent. His blood pressure is okay. Blood cultures done in the ED is now reported as growing gram -positive cocci. CT chest with opacity L base. CT A/P showed infrarenal aneurysm, and one kidney seen L. 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 HIs temps are better. WBC is down to normal. Infectious disease consultation has been requested to evaluate the patient. Review of Systems ROS Limitations: Clinical Condition Past Family Social History Allergies: Coded Allergies: No Known Allergies (Unverified , 07/26/16) Past Medical History PE 2011 Past Surgical History Not known Active Ordered Medications Tylenol Albuterol Fentanyl Solumedrol Morphine Protonix Zosyn Propofol Vancomycin Social History Smoker per records ETOH not known Substance abuse not known Physical Exam Vital Signs Vital Signs Date Time Temp Pulse Resp B/P Pulse Ox O2 Delivery O2 Flow Rate FiO2 07/27/16 16:00 93 07/27/16 16:00 40 07/27/16 16:00 98.9 93 17 105/57 100 07/27/16 15:24 98 40 07/27/16 15:00 79 18 92/55 98 07/27/16 14:00 80 16 94/55 96 07/27/16 14:00 80 07/27/16 13:00 80 22 114/53 96 07/27/16 12:00 99.1 81 22 93/54 96 07/27/16 12:00 81 07/27/16 12:00 40 07/27/16 11:30 99 40 07/27/16 11:00 87 18 102/50 98 07/27/16 10:00 93 07/27/16 10:00 93 20 109/56 98 07/27/16 09:00 80 22 93/52 100 07/27/16 08:17 97 40 07/27/16 08:00 76 07/27/16 08:00 40 07/27/16 08:00 99.0 76 27 92/54 97 07/27/16 07:00 79 43 88/52 100 07/27/16 06:00 80 07/27/16 04:10 21 40 07/27/16 04:00 80 07/27/16 04:00 99.3 80 40 87/51 100 07/27/16 04:00 40 07/27/16 02:00 78 07/27/16 01:14 100 40 07/27/16 00:00 91 07/27/16 00:00 98.8 91 40 91/50 96 07/26/16 20:00 99.0 79 46 99/49 87 07/26/16 19:47 100 100 07/26/16 19:47 97 50 07/26/16 19:19 99.2 85 19 106/57 98 Ventilator 50 07/26/16 19:00 99.0 87 14 106/57 97 Ventilator 50 07/26/16 19:00 99.0 87 14 106/57 97 Ventilator 50 07/26/16 18:30 118 14 102/58 97 Ventilator 50 07/26/16 18:00 136 14 118/77 98 Ventilator 50 07/26/16 17:27 97 50 07/26/16 17:10 128 16 136/60 98 Ventilator 50 07/26/16 17:00 95 100 Physical Exam GENERAL: Patient is a cachectic, well-developed CM, awake and following commands, on the vent, not in respiratory distress. SKIN: Warm and dry. No generalized rash, no ecchymoses and no evidence of embolic lesions. HEAD: Atraumatic. Normocephalic. No temporal tenderness. EYES: [place] conjunctiva. No petechia or hemorrhage. Pupils equal, round and reactive to light. Extraocular movements full and intact. No scleral icterus. No injection or drainage. EARS, NOSE AND THROAT: Nose without bleeding or purulent nasal discharge. No sinus tenderness. Mucous membranes pink and moist. No oral lesions noted. No exudate. No oral thrush. He is edentulous. He is orally intubated NECK: Trachea midline. Supple and not tender, no meningeal signs CARDIOVASCULAR: Regular rate and rhythm. No murmurs, rubs or gallops heard RESPIRATORY: Coarse BS bilaterally, decreased at the bases. No wheezing or rhonchi ABDOMEN: Soft, flat, mildly distended, with mild diffuse tenderness. Bowel sounds present and normoactive. No guarding. No rebound. EXTREMITIES: No clubbing, or cyanosis. Has bilateral pedal edema. His LLE looks bigger than RLE. Has significant pain with any movement of his LLE. Some mottled areas both feet. NEUROLOGICAL: Awake and alert. Cranial nerves grossly intact. Motor grossly within normal limits. PSYCHIATRIC: Looks anxious, cooperative. LINE: No evidence of infection : We[place] in place, urine looks clear Laboratory Laboratory Tests Test 07/26/16 07/26/16 07/26/16 07/26/16 17:45 18:13 18:30 20:30 Blood Gas Puncture Site RT RADIAL Blood Gas Patient Temperature 98.6 Blood Gas HCO3 19 Blood Gas Base Excess -5.9 Blood Gas Oxygen Saturation 97 Arterial Blood pH 7.37 Arterial Blood Partial 33 Pressure CO2 Arterial Blood Partial 151 Pressure O2 Arterial Blood Oxygen Content 6.3 Arterial Blood 2.1 Carboxyhemoglobin Arterial Blood Methemoglobin 0.4 Blood Gas Hemoglobin 4.4 Oxygen Delivery Device VENTILATOR Blood Gas Ventilator Setting A/C14/600/PEEP5 Blood Gas Inspired Oxygen 50 Blood Type O POSITIVE Lactic Acid Level 3.3 Nasal Screen MRSA (PCR) MRSA NOT DETECTED Test 07/26/16 07/26/16 07/27/16 07/27/16 20:35 22:40 03:07 11:35 Magnesium Level 2.3 2.1 2.2 Total Creatine Kinase 293 159 148 Creatine Kinase MB 2.4 1.4 1.4 Troponin I 0.68 1.00 0.86 Lactic Acid Level 2.8 White Blood Count 8.9 Red Blood Count 3.35 Hemoglobin 8.5 Hematocrit 25.7 Mean Corpuscular Volume 76.6 Mean Corpuscular Hemoglobin 25.5 Mean Corpuscular Hemoglobin 33.2 Concent Red Cell Distribution Width 24.3 Platelet Count 148 Mean Platelet Volume 8.5 Neutrophils (%) (Auto) 91.3 Lymphocytes (%) (Auto) 5.6 Monocytes (%) (Auto) 2.9 Eosinophils (%) (Auto) 0.0 Basophils (%) (Auto) 0.2 Neutrophils # (Auto) 8.1 Lymphocytes # (Auto) 0.5 Monocytes # (Auto) 0.3 Eosinophils # (Auto) 0.0 Basophils # (Auto) 0.0 CBC Comment AUTO DIFF Differential Comment AUTO DIFF CONFIRMED Platelet Estimate LOW Platelet Morphology Comment NORMAL Tear Drop Cells 1+ Ovalocytes 1+ Crenated Cell 2+ Sodium Level 151 151 Potassium Level 3.4 3.4 Chloride Level 120 121 Carbon Dioxide Level 21.9 17.7 Anion Gap 9 12 Blood Urea Nitrogen 57 57 Creatinine 2.30 2.42 Estimat Glomerular Filtration 28 27 Rate Random Glucose 134 154 Calcium Level 7.9 8.3 Iron Level 53 Total Iron Binding Capacity 234 Percent Iron Saturation 22.7 Total Bilirubin 1.8 1.5 Aspartate Amino Transf 24 22 (AST/SGOT) Alanine Aminotransferase 13 13 (ALT/SGPT) Alkaline Phosphatase 23 20 Total Protein 5.8 5.8 Albumin 1.8 1.7 Vitamin B12 Level 1000 Test 07/27/16 07/27/16 13:00 16:04 Urine Opiates Screen NEG Urine Barbiturates Screen NEG Urine Amphetamines Screen NEG Urine Benzodiazepines Screen POS Urine Cocaine Screen NEG Urine Cannabinoids Screen POS Hemoglobin 8.7 Hematocrit 27.0 Date/Time Procedure Status Source Growth 07/27/16 16:11 Aerobic Blood Culture Received Blood Peripheral Pending 07/27/16 16:11 Anaerobic Blood Culture Received Blood Peripheral Pending 07/27/16 13:00 Legionella Antigen Received Urine Catheterized Urine Pending 07/27/16 13:00 Streptococcus pneumoniae Antigen (M Received Urine Catheterized Urine Pending 07/26/16 19:57 Gram Stain - Final Resulted Sputum Endotracheal 07/26/16 19:57 Sputum Culture - Preliminary Resulted Sputum Endotracheal IMMATURE GROWTH - REINCUBATE 07/26/16 15:40 Aerobic Blood Culture - Preliminary Resulted Blood Peripheral Gram Positive Cocci 07/26/16 15:40 Anaerobic Blood Culture - Preliminary Resulted Gram Positive Cocci 07/26/16 15:39 Urine Culture - Preliminary Resulted Urine Catheterized Urine NO GROWTH IN 24 HOURS. Result Diagram: 07/27/16 1604 07/27/16 1135 Imaging RADIOLOGY STUDIES/FILMS REVIEWED Chest X-Ray 07/27/16 0000 Signed Impressions: Service Date/Time: Wednesday, July 27, 2016 03:16 - CONCLUSION: New significant consolidation left lower lobe possible left lower lobe collapse. Right lung is clear Pritesh Horan MD Head CT 07/26/16 1534 Signed Impressions: Service Date/Time: Tuesday, July 26, 2016 16:47 - CONCLUSION: 1. 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 2. No acute intracranial abnormality. David Montes MD Abdomen/Pelvis CT 07/26/16 0000 Signed Impressions: Service Date/Time: Tuesday, July 26, 2016 16:52 - CONCLUSION: 1. Infrarenal abdominal aortic aneurysm measures 3.4 cm. Aneurysmal dilatation right common iliac artery. 2. 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 3. Prominence of the left adrenal gland. David Montes MD Assessment and Plan Assessment and Plan IMPRESSION Sepsis, on admission, likely due to PNA Pneumococcal bacteremia, from PNA Respiratory failure Renal insufficiency Atrial fib RVR, back in NSR Severe anemia RECOMMENDATION Continue Vancomycin Continue Zosyn Follow C/S Monitor progress GI and renal evaluating patient I will follow along with you and determine course of Abx depending on his clinical progress Thank you for this consultation Discussed Condition With D/W Adela Handy MD Jul 27, 2016 17:11
[2016-07-27] MEDS ORDERED: VANCOMYCIN INJ 1,200 MG in SODIUM CHLOR 0.9% 250 ML INJ 250 ML IV SCH (22:00)
--- NOTE | 2016-07-27 22:03 | RADRPT ---
EXAM DATE/TIME: 07/27/2016 21:24 [facility] COMPARISON: No previous studies available for comparison. INDICATIONS : Left hip pain, injury unknown. MEDICAL HISTORY : None. SURGICAL HISTORY : None. ENCOUNTER: Initial ACUITY: 3 days PAIN SCORE: Non-responsive. LOCATION: Left hip. FINDINGS: Bones of the left hip are intact and normally aligned. No significant joint space narrowing. 3.8 cm exophytic/lobulated skin lesion seen anteriorly of the upper thigh. Please correlate clinicall y. There is atherosclerosis of the left femoral artery. CONCLUSION: No acute bony abnormality demonstrated. No fracture, subluxation or significant joint space narrowing of the left hip. Josue Dimas MD on July 27, 2016 at 21:59 Board Certified Radiologist. This report was verified electronically.
--- NOTE | 2016-07-27 22:04 | RADRPT ---
EXAM DATE/TIME: 07/27/2016 21:30 [facility] COMPARISON: No previous studies available for comparison. INDICATIONS : Left knee pain, unknown injury. MEDICAL HISTORY : None. SURGICAL HISTORY : None. ENCOUNTER: Initial ACUITY: 3 days PAIN SCORE: Non-responsive. LOCATION: Left knee. FINDINGS: There is mild tricompartment osteoarthritis. No fracture or subluxation seen of the left knee. A supr apatellar joint effusion is evident and there also appears to be thickening of distal quadriceps. CONCLUSION: Intact left knee. Mild osteoarthritis, nonspecific joint effusion and suspected distal quadriceps ten dinosis. Josue Dimas MD on July 27, 2016 at 22:01 Board Certified Radiologist. This report was verified electronically.
[2016-07-28] VITALS (23 sets, daily range): BP systolic 85–130; BP diastolic 50–77; PULSE 69–151; RESP 14–46; TEMP 98–99.1; O2SAT 91–100
[2016-07-28] MEDS: RESP: ALBUTEROL 2.5 MG/IPRATROPIUM 0.5 MG NEB (SCH) NEB ×4 (03:27→20:29)
[2016-07-28] MEDS: CHLORHEXIDINE GLUCONATE 2 % 1 PACK (2 CLOTHS) TOP SCH (04:00)
[2016-07-28] MEDS: PIPERACIL-TAZO 3.375 GM PREMIX 50 ML IV SCH ×4 (04:23→21:16)
[2016-07-28] MEDS: FREE WATER G-TUBE SCH ×5 (06:00→23:36)
[2016-07-28] MEDS ORDERED: AMIODARONE INJ 150 MG in DEXTROSE 5% IN WATER 100ML INJ 97 ML IV ONE ×2 (06:00)
[2016-07-28 07:01] LABS: BICARBONATE 21.8 MEQ/L (21.0-32.0)
[2016-07-28 07:21] LABS: POTASSIUM 2.9 MEQ/L (3.5-5.1)
[2016-07-28] MEDS: fentaNYL 2,500 MCG/NS 250 ML IV SCH (07:31)
[2016-07-28] MEDS: methylPREDNISolone SOD SUCC 125 MG/2 ML VIAL IV PUSH SCH (07:31)
[2016-07-28] MEDS: PANTOPRAZOLE INJ 80 MG in SODIUM CHLORIDE 0.9% INJ 100 ML IV SCH ×2 (07:31→18:18)
[2016-07-28] MEDS: CHLORHEXIDINE 0.12% (ORAL KIT) 15 ML CUP MT SCH ×2 (07:32→20:00)
[2016-07-28 07:55] LABS: AUTOMATED NEUTROPHIL # 9.9 TH/MM3 (1.8-7.7); HEMATOCRIT 24.8 % (39.0-51.0); LYMPH % 3.9 % (9.0-44.0); LYMPHOCYTE # 0.4 TH/MM3 (1.0-4.8); MEAN CELL VOLUME 78.6 FL (80.0-100.0); MEAN CORPUSCULAR HEMOGLOBIN 25.3 PG (27.0-34.0); MEAN CORPUSCULAR HGB CONC 32.1 % (32.0-36.0); MONO % 2.9 % (0.0-8.0); NEUT % 93.2 % (16.0-70.0); PLATELET COUNT 140 TH/MM3 (150-450); RED BLOOD COUNT 3.16 MIL/MM3 (4.50-5.90); RED CELL DISTRIBUTION WIDTH 24.1 % (11.6-17.2); WHITE BLOOD COUNT 10.7 TH/MM3 (4.0-11.0)
[2016-07-28 07:57] LABS: HEMO FLAGS AUTO DIFF
[2016-07-28] MEDS: SODIUM BICARBONATE IV SCH (08:26)
[2016-07-28] MEDS: NACL 0.9% IV SCH (08:26)
[2016-07-28] MEDS: DEXT 5% IV SCH (08:26)
[2016-07-28 08:29] LABS: BANDS 12 % (0-6); CORRECTED NUCLEATED RBC 1 /100 WBC (0-0); NEUTROPHIL # MANUAL DIFF 10.5 TH/MM3 (1.8-7.7); POLYS (SEG NEUTROPHILS) 86 % (16-70); WBC DIFF SAMPLE 100
[2016-07-28 08:31] LABS: TOXIC GRANULATION 1+ (NORMAL)
[2016-07-28 08:32] LABS: CRENATED RBCS 1+ (NORMAL); KERATOCYTES OCC (NORMAL)
[2016-07-28 08:33] LABS: PLATELET ESTIMATE SMEAR LOW (NORMAL)
[2016-07-28 08:34] LABS: ACANTHOCYTES 1+ (NORMAL); PLATELET MORPHOLOGY ENLARGED (NORMAL)
[2016-07-28 08:35] LABS: SCAN/DIFF FINAL DIFF MANUAL
--- NOTE | 2016-07-28 09:12 | EC ---
Study Study Date:07/27/2016 STUDY CONCLUSIONS SUMMARY - Left ventricle: The cavity size was normal. Wall thickness was normal. Systolic function was normal. The estimated ejection fraction was in the range of 50% to 55%. Wall motion was normal; there were no regional wall motion abnormalities. - Aortic valve: Moderate regurgitation. - Mitral valve: Mild regurgitation. - Pericardium, extracardiac: A trivial pericardial effusion was identified. If LV function is below 40, please consider prescribing an ACEI or ARB or document rationale for non-use. PROCEDURE DATA STUDY STATUS: Elective. Procedure: Transthoracic echocardiography. Image quality was good. Scanning was performed from the parasternal, apical, and subcostal acoustic windows. Study completion: The patient tolerated the procedure well. Transthoracic echocardiography. M-mode, complete 2D, complete spectral Doppler, and color Doppler. Patient status: Inpatient. CARDIAC ANATOMY LEFT VENTRICLE: The cavity size was normal. Wall thickness was normal. Systolic function was normal. The estimated ejection fraction was in the range of 50% to 55%. Wall motion was normal; there were no regional wall motion abnormalities. AORTIC VALVE: Trileaflet; normal thickness leaflets. Doppler: Transvalvular velocity was within the normal range. There was no stenosis. Moderate regurgitation. Mean gradient: 15mm Hg (S). Peak gradient: 33mm Hg (S). AORTA: Aortic root: The aortic root was normal in size. MITRAL VALVE: Structurally normal valve. Doppler: Transvalvular velocity was within the normal range. There was no evidence for stenosis. Mild regurgitation. LEFT ATRIUM: The atrium was normal in size. RIGHT VENTRICLE: The cavity size was normal. Wall thickness was normal. PULMONIC VALVE: Doppler: Transvalvular velocity was within the normal range. There was no evidence for stenosis. No regurgitation. TRICUSPID VALVE: Structurally normal valve. Doppler: Transvalvular velocity was within the normal range. No regurgitation. PULMONARY ARTERY: The main pulmonary artery was normal-sized. Systolic pressure was within the normal range. RIGHT ATRIUM: The atrium was normal in size. PERICARDIUM: A trivial pericardial effusion was identified. SYSTEMIC VEINS: Inferior vena cava: The vessel was normal in size. BASIC MEASUREMENTS ADULT NORMAL Left ventricle LV internal dimension, ED, chordal level, 49.1 mm 43-52 PLAX LV internal dimension, ES, chordal level, 36.5 mm 23-38 PLAX Fractional shortening, chordal level, PLAX *26 % >29 LV posterior wall thickness, ED 8.82 mm IVS/LVPW ratio, ED 1 <1.3 Ventricular septum Septal thickness, ED 8.83 mm Aortic valve Leaflet separation 18 mm 15-26 Left atrium Anterior-posterior dimension 38 mm Right ventricle RV internal dimension, ED, PLAX 20.2 mm 19-38 BASIC MEASUREMENTS ADULT NORMAL Aortic valve Leaflet separation 18 mm 15-26 Aorta Root diameter, ED 27 mm 20-37 DOPPLER MEASUREMENTS ADULT NORMAL Aortic valve Peak velocity, S 289 cm/s Mean velocity, S 175 cm/s VTI, S 57.4 cm Mean gradient, S 15 mm Hg Peak gradient, S 33 mm Hg Mitral valve Maximal regurgitant velocity 474 cm/s Tricuspid valve Regurgitant peak velocity 286 cm/s Peak RV-RA gradient, S 33 mm Hg Maximal regurgitant velocity 286 cm/s LEGEND: Mean values are shown as u=mean value. Asterisk (*) lundberg values outside specified normal range. Prepared and signed by Elias Cadena [id number]
--- NOTE | 2016-07-28 09:41 | HHI.CCPN ---
Subjective Remarks/Hospital Course Patient is a 71-year-old male with only known past medical history of tobacco abuse and a possible history of PE in 2011 aas per emergency department notes was brought to the [facility] ED for altered mental status. Apparently patient's roommate found him unresponsive in the morning and after he came back from work patient was still in the same condition not responsive. EMS was called patient was found hypotensive, hypoxemic and given a liter bolus which improved the blood pressure. In the emergency department patient had a GCS of 8. He had a fever 101.1 tachycardic and heart rate 150s. Patient was given additional fluid boluses and was intubated by Dr. Oliver for airway protection. Chest x-ray was unremarkable lab work showed a hemoglobin of 4.1 white count of 13, lactic acid of 6.2 BUN of 16 creatinine of 2.7. For possible sepsis he was given vancomycin and Zosyn. A total of 4 units of PRBC had been ordered and GI consult had been requested. History of Hemoccult was positive. Troponin was slightly elevated could be demand ischemia in renal failure I evaluated the patient in the ED. He appears chronically ill, dishevelled. CT of the head and chest abdomen pelvis is pending at this time. Dr.Al Gastelum with GI had been consulted. IV Protonix gtt. Start Cardizem bolus and drip for A fib with RVR 07/27 Patient is sedated with Versed , fentanyl and intubated. On Protonix drip and Cardizem drip 2mg/hr. Afebrile. Hgb 8.5 this morning from 4.4 yesterday. s/ p transfusion 4units PRBC. 07/28 Patient remains intubated and sedated with fentanyl. Remains on Protonix drip. Hgb 8.0 this morning, He was placed on Amio drip overnight for Afib with RVR . On Bicarb drip. Objective Vital Signs Date Time Temp Pulse Resp B/P Pulse Ox O2 Delivery O2 Flow Rate FiO2 07/28/16 08:00 35 07/28/16 08:00 86 07/28/16 08:00 98.0 14 103/55 100 07/26/16 19:19 Ventilator Intake and Output 07/27/16 07/27/16 07/28/16 08:00 16:00 00:00 Intake Total 2225 ml 1001 ml 1827 ml Output Total 450 ml 300 ml 400 ml Balance 1775 ml 701 ml 1427 ml Result Diagram: 07/28/16 0449 07/28/16 0449 Other Results Laboratory Tests Test 07/27/16 07/27/16 07/27/16 07/27/16 11:35 13:00 16:04 22:54 Sodium Level 151 MEQ/L Potassium Level 3.4 MEQ/L Chloride Level 121 MEQ/L Carbon Dioxide Level 17.7 MEQ/L Anion Gap 12 MEQ/L Blood Urea Nitrogen 57 MG/DL Creatinine 2.42 MG/DL Estimat Glomerular Filtration 27 ML/MIN Rate Random Glucose 154 MG/DL Calcium Level 8.3 MG/DL Magnesium Level 2.2 MG/DL Total Bilirubin 1.5 MG/DL Aspartate Amino Transf 22 U/L (AST/SGOT) Alanine Aminotransferase 13 U/L (ALT/SGPT) Alkaline Phosphatase 20 U/L Total Creatine Kinase 148 U/L Creatine Kinase MB 1.4 NG/ML Troponin I 0.86 NG/ML 0.71 NG/ML 0.52 NG/ML Total Protein 5.8 GM/DL Albumin 1.7 GM/DL Urine Random Creatinine 55.5 MG/DL Urine Random Sodium 12 MEQ/L Urine Opiates Screen NEG Urine Barbiturates Screen NEG Urine Amphetamines Screen NEG Urine Benzodiazepines Screen POS Urine Cocaine Screen NEG Urine Cannabinoids Screen POS Hemoglobin 8.7 GM/DL Hematocrit 27.0 % Lactic Acid Level 1.7 mmol/L Test 07/28/16 04:49 White Blood Count 10.7 TH/MM3 Red Blood Count 3.16 MIL/MM3 Hemoglobin 8.0 GM/DL Hematocrit 24.8 % Mean Corpuscular Volume 78.6 FL Mean Corpuscular Hemoglobin 25.3 PG Mean Corpuscular Hemoglobin 32.1 % Concent Red Cell Distribution Width 24.1 % Platelet Count 140 TH/MM3 Mean Platelet Volume 8.6 FL Neutrophils (%) (Auto) 93.2 % Lymphocytes (%) (Auto) 3.9 % Monocytes (%) (Auto) 2.9 % Eosinophils (%) (Auto) 0.0 % Basophils (%) (Auto) 0.0 % Neutrophils # (Auto) 9.9 TH/MM3 Lymphocytes # (Auto) 0.4 TH/MM3 Monocytes # (Auto) 0.3 TH/MM3 Eosinophils # (Auto) 0.0 TH/MM3 Basophils # (Auto) 0.0 TH/MM3 CBC Comment AUTO DIFF Differential Total Cells 100 Counted Neutrophils % (Manual) 86 % Band Neutrophils % 12 % Lymphocytes % 1 % Monocytes % 1 % Neutrophils # (Manual) 10.5 TH/MM3 Nucleated Red Blood Cells 1 /100 WBC Differential Comment FINAL DIFF MANUAL Toxic Granulation 1+ Platelet Estimate LOW Platelet Morphology Comment ENLARGED Crenated Cell 1+ Acanthocytes 1+ Keratocytes OCC Sodium Level 155 MEQ/L Potassium Level 2.9 MEQ/L Chloride Level 124 MEQ/L Carbon Dioxide Level 21.8 MEQ/L Anion Gap 9 MEQ/L Blood Urea Nitrogen 56 MG/DL Creatinine 2.34 MG/DL Estimat Glomerular Filtration 28 ML/MIN Rate Random Glucose 207 MG/DL Calcium Level 8.4 MG/DL Phosphorus Level 4.0 MG/DL Troponin I 0.33 NG/ML Albumin 1.7 GM/DL Imaging Last Impressions Knee X-Ray 07/27/161646 Signed Impressions: Service Date/Time: Wednesday, July 27, 2016 21:30 - CONCLUSION: Intact left knee. Mild osteoarthritis, nonspecific joint effusion and suspected distal quadriceps tendinosis. Josue Dimas MD Hip X-Ray 07/27/16 1647 Signed Impressions: Service Date/Time: Wednesday, July 27, 2016 21:24 - CONCLUSION: No acute bony abnormality demonstrated. No fracture, subluxation or significant joint space narrowing of the left hip. Josue Dimas MD Chest X-Ray 07/27/16 0000 Signed Impressions: Service Date/Time: Wednesday, July 27, 2016 03:16 - CONCLUSION: New significant consolidation left lower lobe possible left lower lobe collapse. Right lung is clear Pritesh Horan MD Head CT 07/26/16 1534 Signed Impressions: Service Date/Time: Tuesday, July 26, 2016 16:47 - CONCLUSION: 1. 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 2. No acute intracranial abnormality. David Montes MD Abdomen/Pelvis CT 07/26/16 0000 Signed Impressions: Service Date/Time: Tuesday, July 26, 2016 16:52 - CONCLUSION: 1. Infrarenal abdominal aortic aneurysm measures 3.4 cm. Aneurysmal dilatation right common iliac artery. 2. 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 3. Prominence of the left adrenal gland. David Montes MD Objective Remarks P/E GENERAL: Chronically ill-appearing disheveled male who is intubated, sedated SKIN: Warm and dry. Large wart on L thigh HEAD: Atraumatic. Normocephalic. EYES: Pupils equal and round. ENT: Oral mucosa is dry. Orotracheally intubated NECK: Trachea midline. No JVD. CARDIOVASCULAR: RRR, nl S1, S2. RESPIRATORY: Bilateral equal air entry GASTROINTESTINAL: Abdomen soft, non-tender, nondistended. MUSCULOSKELETAL: No obvious deformities. No clubbing. No cyanosis. No edema. NEUROLOGICAL: Intubated, sedated A/P Assessment and Plan NEURO: Acute encephalopathy most likely metabolic Previous CVA with encephalomalacia -On Fentanyl infusion fro sedation. Daily sedation vacation. -CT head shows old infarcts without any acute findings, -EEG 07/27: Diffuse Encephalopathy -UDS + Benzos, cannabinoids. RESP: Acute hypoxemic respiratory failure Acute COPD exacerbation Tobacco abuse -Continue with vent support keep sat >92% -DuoNeb every 6 hours and when necessary -Taper IV steroids- decrease Solu-Medrol 30mg IV Q12 -Start SBT daily as shantell CV: Septic and hypovolemic shock Atrial fibrillation with RVR Lactic acidosis ..resolving Elevated trop -Monitor HR and BP keep MAP>65mmHg -lactic acid cleared 1.7 yesterday. -Monitor troponin's, echo showed EF 50-55%, no RWMA, cards is following- Dr. Banda - -Patient is not a candidate for ASA or AC due to GI bleed. GI: GI bleed 3.4 cm infrarenal AAA -s/p Transfuse 4U PRBC.07/26 -GI is following- Dr. Callahan.Endoscopy on hold for now ( unable to obtain consent per GI) -Continue with tube feeds- Nepro @40ml/hr -Continue IV Protonix infusion -Coace and Senna for bowel regimen. -No intervention needed for AAA at this time : Acute kidney failure ..improving Hypernatremia Hypokalemia -Monitor renal function , I/O's, electrolytes replacement as needed. Avoid nephrotoxins -Change IVF to D5W @75ml/hr, monitor sodium level. ;- Dr. Rose -Increase Free water 300ml Q6. Monitor sodium level. -Cr: 2.34 today from 2.42, UOP 1000ml in 24 hrs. Will give KCL 40meq IV x1 CT abd/pelvis: absence right kidney, no hydro on left. ID: Sepsis Gram positive bacteremia -Continue Zosyn and vancomycin. Monitor for signs of infections ( Fever, WBC) ID is following -07/26 BC : GPC, stre pneumonia 4 bottles -07/27 Blood cultures: NGTD -Strep pneumonia and Legionella urinary Ag negative. HEME: Severe anemia requiring transfusion GI bleed -s/p Transfusion 4 units PRBC 07/26, will transfuse 1unt PRNC, check Hemoccult -Monitor CBC, CMP, coags ENDO: -Electrolyte replacement per protocol, place on medium SSI for glycemic control; -ORTHO - Seen by Ortho s/p left Knee aspiration follow up on cultures. PROPH: -Bilateral lower extremity SCDs/ANGELITO. Protonix gtt. chemical DVT prophylaxis contraindicated due to GI bleed - Doppler US LLE showed DVT LLE. Patient is at high risk of bleeding from anticoagulation given severe anemia with Hgb 4.4 on arrival. - Will likley need EGD and colonoscopy if there is no signs of bleeding then will consider full anticoagulation. Discussed with Hematology-Dr. Buitrago and GI- Dr. Gastelum LINES: D -Utilize peripheral IVs, CCT 30 mins Cinthia Israel MD Jul 28, 2016 09:41
[2016-07-28] MEDS: SENNOSIDES SYRUP 8.8 MG/5 ML CUP PO SCH (09:45)
[2016-07-28] MEDS: INSULIN NovoLIN REGULAR SUPPLEMENTAL SCALE SQ SCH ×3 (09:45→21:17)
[2016-07-28] MEDS ORDERED: GLUCAGON 1 MG/ML VIAL OTHER PRN (09:45)
[2016-07-28] MEDS: DOCUSATE SODIUM 100 MG/10 ML UDC PO SCH ×2 (09:45→21:00)
[2016-07-28] MEDS ORDERED: DEXTROSE 50% IN WATER 50 ML VIAL(D50) IV PRN (09:45)
[2016-07-28] MEDS: DEXTROSE 5% IN WATE 1000ML INJ 1,000 ML IV SCH (10:00)
--- NOTE | 2016-07-28 10:16 | RADRPT ---
EXAM DATE/TIME: 07/28/2016 09:35 [facility] COMPARISON: CHEST SINGLE AP, July 27, 2016, 3:16. INDICATIONS : Patient is short of breath. MEDICAL HISTORY : None. SURGICAL HISTORY : None. ENCOUNTER: Subsequent ACUITY: 3 days PAIN SCORE: Non-responsive. LOCATION: Bilateral chest FINDINGS: Endotracheal tube tip well above the kari. A gastric tube tip projects in the stomach however the side port is located above the expected location of the diaphragm, approximately 5 cm. There is pers istent consolidation left lower lobe with loss of delineation of the entire left hemidiaphragm. The right lung is clear. No evidence of mediastinal shift. The heart is normal size. CONCLUSION: 1. The side port of the gastric tube is approximately 5 cm above the level of the diaphragm and needs to be advanced. 2. Persistent dense consolidation left lower lobe. Hector Crawford MD on July 28, 2016 at 10:13 Board Certified Radiologist. This report was verified electronically.
--- NOTE | 2016-07-28 10:25 | HHI.NPPN ---
Subjective General Problems: Hypotension, Mebatolic Acidosis Renal Failure: Acute Interval History He is intubated but awake on CPAP. Went into A fib on amiodarone gtt. Renal function is better. sodium is worse. (Nohemy Walker) Review of Systems General General Remarks unable to obtain (Nohemy Walker) Objective Data Data 07/27/16 07/28/16 19:00 07:00 Intake Total 1001 ml 2757 ml Output Total 300 ml 700 ml Balance 701 ml 2057 ml Intake Oral 0 ml IV Total 1001 ml 2109 ml Tube Feeding 148 ml Other 500 ml Output Urine Total 300 ml 700 ml # Bowel Movements 0 0 Vital Signs Date Time Temp Pulse Resp B/P Pulse Ox O2 Delivery O2 Flow Rate FiO2 07/28/16 08:00 35 07/28/16 08:00 86 07/28/16 08:00 98.0 86 14 103/55 100 07/28/16 07:44 35 07/28/16 07:44 100 35 07/28/16 07:00 76 16 85/50 99 07/28/16 06:00 151 07/28/16 04:16 100 40 07/28/16 04:00 98.1 78 14 88/52 100 07/28/16 04:00 71 07/28/16 04:00 40 07/28/16 02:00 69 07/28/16 01:12 100 40 07/28/16 00:00 98.5 76 14 98/52 100 07/28/16 00:00 40 07/28/16 00:00 74 07/27/16 23:20 100 40 07/27/16 22:00 66 07/27/16 21:42 100 40 07/27/16 20:00 40 07/27/16 20:00 98.4 73 14 93/50 100 07/27/16 20:00 73 07/27/16 18:00 72 07/27/16 16:00 93 07/27/16 16:00 40 07/27/16 16:00 98.9 93 17 105/57 100 07/27/16 15:24 98 40 07/27/16 15:00 79 18 92/55 98 07/27/16 14:00 80 16 94/55 96 07/27/16 14:00 80 07/27/16 13:00 80 22 114/53 96 07/27/16 12:00 99.1 81 22 93/54 96 07/27/16 12:00 81 07/27/16 12:00 40 07/27/16 11:30 99 40 07/27/16 11:00 87 18 102/50 98 (Nohemy Walker) -: 07/28/16 0449 07/28/16 0449 Microbiology 07/27/16 Legionella Antigen - Final, Complete PRESUMPTIVE NEGATIVE FOR LEGIONELLA P... 07/27/16 Streptococcus pneumoniae Antigen (M - Final, Complete PRESUMPTIVE NEGATIVE FOR STREPTOCOCCU... 07/27/16 Aerobic Blood Culture, Received Pending 07/27/16 Anaerobic Blood Culture, Received Pending 07/27/16 Aerobic Blood Culture, Received Pending 07/27/16 Anaerobic Blood Culture, Received Pending Imaging Last 72 hours Impressions Knee X-Ray 07/27/16 1647 Signed Impressions: Service Date/Time: Wednesday, July 27, 2016 21:30 - CONCLUSION: Intact left knee. Mild osteoarthritis, nonspecific joint effusion and suspected distal quadriceps tendinosis. Josue Dimas MD Hip X-Ray 07/27/16 1647 Signed Impressions: Service Date/Time: Wednesday, July 27, 2016 21:24 - CONCLUSION: No acute bony abnormality demonstrated. No fracture, subluxation or significant joint space narrowing of the left hip. Josue Dimas MD Chest X-Ray 07/27/16 0000 Signed Impressions: Service Date/Time: Wednesday, July 27, 2016 03:16 - CONCLUSION: New significant consolidation left lower lobe possible left lower lobe collapse. Right lung is clear Pritesh Horan MD Head CT 07/26/16 1534 Signed Impressions: Service Date/Time: Tuesday, July 26, 2016 16:47 - CONCLUSION: 1. 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 2. No acute intracranial abnormality. David Montes MD Chest X-Ray 07/26/16 1533 Signed Impressions: Service Date/Time: Tuesday, July 26, 2016 15:42 - CONCLUSION: No acute disease. Endotracheal tube 7 cm above the kari. David Montes MD Abdomen/Pelvis CT 07/26/16 0000 Signed Impressions: Service Date/Time: Tuesday, July 26, 2016 16:52 - CONCLUSION: 1. Infrarenal abdominal aortic aneurysm measures 3.4 cm. Aneurysmal dilatation right common iliac artery. 2. 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 3. Prominence of the left adrenal gland. 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) Throat Throat Exam: Oral Mucosa [place] & Moist (Nohemy Walker BREAST WORKER) Pulmonary Resp Exam: Crackles, Rhonchi Resp Remarks vented lung sounds, course throughout (Nohemy Walker BREAST WORKER) Cardiology CV Exam: Regular, Normal Sinus Rhythm (Nohemy WalkerP) Gastrointestinal/Abdomen GI Exam: Soft, Non-Tender, Bowel Sounds Present GI Remarks flat abdomen (Nohemy Walker BREAST WORKER) Musculoskeletal MS Exam: Joints Intact, Normal Tone MS Remarks pain in left leg with palpation (Nohemy Walker BREAST WORKER) Integumentary Skin Exam: Clear, Warm, Dry, Intact (Nohemy Walker) Extremeties Extremities Exam: No Edema, Pedal Pulses Palpable (Nohemy Walker. BREAST WORKER) Neurologic Neuro Exam: Awake, Moving All Extremities, Sedated (Nohemy Walker) Psychiatric Psych Exam: Appropriate Responses (Nohemy Walker) Assessment/Plan Discussed Condition With: Patient Assessment Summary: TAMMY/Acute Renal Failure, Hypotension Problem List: (1) Acute kidney failure Plan: in a patient with no labs for comparison FeNa < 1% suggesting prerenal etiology of TAMMY, which may be from intravascular volume depletion and sepsis he was also hypotensive; may have progressed to ATN renal function is better, adequate urine output 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 replace potassium IV change IVF to D5W borderline low BP, use pressors if needed to maintain adequate MAP follow renal function and electrolytes daily (2) Severe anemia Plan: Hb improved, Hemoccult positive, see below awaiting EGD/colonoscopy by GI also microcytic anemia, slight iron deficiency avoid Venofer in light of sepsis (3) Septic shock Plan: ID following 4/4 bottles positive, he is on vancomycin and Zosyn source suspected Pneumonia legionella antigen in urine is negative (4) Elevated troponin Plan: possibly due to demand ischemia from A fib RVR, sepsis cardiology has evaluated, who recommend treat underlying cause (5) Acute respiratory failure Plan: intubated, on CPAP this morning ween when able 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 When I examined him, he had been extubated. Renal function is better. Continue to treat hypernatremia. (Charly Rose MD) Problem Qualifiers (1) Acute kidney failure: Qualified Code: N17.9 - Acute renal failure, unspecified acute renal failure type (2) Acute respiratory failure: Qualified Code: J96.00 - Acute respiratory failure, unspecified whether with hypoxia or hypercapnia Nohemy Walker Jul 28, 2016 10:25 Charly Rose MD Jul 28, 2016 15:07
[2016-07-28] MEDS: POTASSIUM CHLOR 20 MEQ PREMIX 100 ML IV SCH ×2 (10:43→12:54)
[2016-07-28 11:16] LABS: BLOOD GAS CARBOXYHEMOGLOBIN 1.7 % (0-4); BLOOD GAS HCO3 18 mmol/L (22-26); BLOOD GAS METHEMOGLOBIN 1.3 % (0-2); BLOOD GAS O2 HGB SATURATION 95 % (90-100); BLOOD GAS OXYGEN CONTENT 10.4 Vol % (12.0-20.0); BLOOD GAS PCO2 30 mmHg (38-42); BLOOD GAS PO2 98 mmHg (61-120); BLOOD GAS TOTAL HGB 7.7 G/DL (12.0-16.0); CRITICAL VALUE NO; DRAW SITE LT RADIAL; FIO2 35 %; NUMBER OF ARTERIAL PUNCTURES 1; OXYGEN DEVICE VENTILATOR; STAT NO; TEMP CORR TO 98.6; ULNAR PULSE PRESENT; VENT SETTINGS CPAP 5/10PS
[2016-07-28] MEDS ORDERED: FREE WATER G-TUBE SCH (12:00)
[2016-07-28 13:47] LABS: SYNOVIAL FLUID CRYSTALS POS - CALCIUM PYRO
--- NOTE | 2016-07-28 13:53 | HHI.GIFU ---
Subjective Remarks Pt has been extubated. He is awake but lethargic. He denies any abd pain, bleeding, n/v. Denies prior hematemesis, tarry stools. He is asking for food and drink. (Miriam Willett) Objective Vitals I&O Vital Signs Date Time Temp Pulse Resp B/P Pulse Ox O2 Delivery O2 Flow Rate FiO2 07/28/16 13:00 90 19 130/59 96 07/28/16 12:00 86 07/28/16 12:00 98.4 86 18 114/56 98 07/28/16 11:50 99 Nasal Cannula 2 07/28/16 11:50 99 Nasal Cannula 2.00 07/28/16 11:00 91 14 100 07/28/16 10:00 82 07/28/16 10:00 82 14 106/57 07/28/16 09:00 81 16 100/52 100 07/28/16 08:00 35 07/28/16 08:00 86 07/28/16 08:00 98.0 86 14 103/55 100 07/28/16 07:44 Nasal Cannula 35 07/28/16 07:44 100 35 07/28/16 07:00 76 16 85/50 99 07/28/16 06:00 151 07/28/16 04:16 100 40 07/28/16 04:00 98.1 78 14 88/52 100 07/28/16 04:00 71 07/28/16 04:00 40 07/28/16 02:00 69 07/28/16 01:12 100 40 07/28/16 00:00 98.5 76 14 98/52 100 07/28/16 00:00 40 07/28/16 00:00 74 07/27/16 23:20 100 40 07/27/16 22:00 66 07/27/16 21:42 100 40 07/27/16 20:00 40 07/27/16 20:00 98.4 73 14 93/50 100 07/27/16 20:00 73 07/27/16 18:00 72 07/27/16 16:00 93 07/27/16 16:00 40 07/27/16 16:00 98.9 93 17 105/57 100 07/27/16 15:24 98 40 07/27/16 15:00 79 18 92/55 98 07/27/16 14:00 80 16 94/55 96 07/27/16 14:00 80 I/O 07/27/16 07/27/16 07/27/16 07/28/16 07/28/16 07/28/16 07:00 15:00 23:00 07:00 15:00 23:00 Intake Total 2225 ml 1001 ml 1827 ml 930 ml Output Total 450 ml 300 ml 400 ml 300 ml 0 ml Balance 1775 ml 701 ml 1427 ml 630 ml 0 ml Intake Oral 0 ml 0 ml IV Total 2225 ml 1001 ml 1429 ml 680 ml Tube Feeding 148 ml 0 ml Other 250 ml 250 ml Output Urine Total 450 ml 300 ml 400 ml 300 ml Tube Feeding Residual Discard 0 ml # Bowel Movements 1 0 0 0 Laboratory Laboratory Tests Test 07/27/16 07/27/16 07/28/16 07/28/16 16:04 22:54 04:49 11:10 Hemoglobin 8.7 8.0 Hematocrit 27.0 24.8 Lactic Acid Level 1.7 Troponin I 0.71 0.52 0.33 White Blood Count 10.7 Red Blood Count 3.16 Mean Corpuscular Volume 78.6 Mean Corpuscular Hemoglobin 25.3 Mean Corpuscular Hemoglobin 32.1 Concent Red Cell Distribution Width 24.1 Platelet Count 140 Mean Platelet Volume 8.6 Neutrophils (%) (Auto) 93.2 Lymphocytes (%) (Auto) 3.9 Monocytes (%) (Auto) 2.9 Eosinophils (%) (Auto) 0.0 Basophils (%) (Auto) 0.0 Neutrophils # (Auto) 9.9 Lymphocytes # (Auto) 0.4 Monocytes # (Auto) 0.3 Eosinophils # (Auto) 0.0 Basophils # (Auto) 0.0 CBC Comment AUTO DIFF Differential Total Cells 100 Counted Neutrophils % (Manual) 86 Band Neutrophils % 12 Lymphocytes % 1 Monocytes % 1 Neutrophils # (Manual) 10.5 Nucleated Red Blood Cells 1 Differential Comment FINAL DIFF MANUAL Toxic Granulation 1+ Platelet Estimate LOW Platelet Morphology Comment ENLARGED Crenated Cell 1+ Acanthocytes 1+ Keratocytes OCC Sodium Level 155 Potassium Level 2.9 Chloride Level 124 Carbon Dioxide Level 21.8 Anion Gap 9 Blood Urea Nitrogen 56 Creatinine 2.34 Estimat Glomerular Filtration 28 Rate Random Glucose 207 Calcium Level 8.4 Phosphorus Level 4.0 Albumin 1.7 Blood Gas Puncture Site LT RADIAL Blood Gas Patient Temperature 98.6 Blood Gas HCO3 18 Blood Gas Base Excess -6.0 Blood Gas Oxygen Saturation 95 Arterial Blood pH 7.40 Arterial Blood Partial 30 Pressure CO2 Arterial Blood Partial 98 Pressure O2 Arterial Blood Oxygen Content 10.4 Arterial Blood 1.7 Carboxyhemoglobin Arterial Blood Methemoglobin 1.3 Blood Gas Hemoglobin 7.7 Oxygen Delivery Device VENTILATOR Blood Gas Ventilator Setting CPAP 5/10PS Blood Gas Inspired Oxygen 35 Test 07/28/16 12:40 Synovial Fluid Crystals POS - CALCIUM PYRO Date/Time Procedure Status Source Growth 07/28/16 12:40 Gram Stain Received Wound Knee Pending 07/28/16 12:40 Wound Culture Received Wound Knee Pending 07/27/16 16:11 Aerobic Blood Culture - Preliminary Resulted Blood Peripheral NO GROWTH IN 1 DAY 07/27/16 16:11 Anaerobic Blood Culture - Preliminary Resulted Blood Peripheral NO GROWTH IN 1 DAY 07/27/16 13:00 Legionella Antigen - Final Complete Urine Catheterized Urine PRESUMPTIVE NEGATIVE FOR LEGIONELLA P... 07/27/16 13:00 Streptococcus pneumoniae Antigen (M - Final Complete Urine Catheterized Urine PRESUMPTIVE NEGATIVE FOR STREPTOCOCCU... 07/26/16 19:57 Gram Stain - Final Resulted Sputum Endotracheal 07/26/16 19:57 Sputum Culture - Preliminary Resulted Gram Negative Coccobacilli 07/26/16 15:40 Aerobic Blood Culture - Final Complete Blood Peripheral Streptococcus Pneumoniae 07/26/16 15:40 Anaerobic Blood Culture - Final Complete Streptococcus Pneumoniae 07/26/16 15:39 Urine Culture - Final Complete Urine Catheterized Urine NO GROWTH IN 48 HOURS. Imaging Last Impressions Chest X-Ray 07/28/16 0000 Signed Impressions: Service Date/Time: Thursday, July 28, 2016 09:35 - CONCLUSION: 1. The side port of the gastric tube is approximately 5 cm above the level of the diaphragm and needs to be advanced. 2. Persistent dense consolidation left lower lobe. Hector Crawford MD Knee X-Ray [id number]/27/[id number] Signed Impressions: Service Date/Time: Wednesday, July 27, 2016 21:30 - CONCLUSION: Intact left knee. Mild osteoarthritis, nonspecific joint effusion and suspected distal quadriceps tendinosis. Josue Dimas MD Hip X-Ray [id number] Signed Impressions: Service Date/Time: Wednesday, July 27, 2016 21:24 - CONCLUSION: No acute bony abnormality demonstrated. No fracture, subluxation or significant joint space narrowing of the left hip. Josue Dimas MD Head CT 07/26/16 1534 Signed Impressions: Service Date/Time: Tuesday, July 26, 2016 16:47 - CONCLUSION: 1. 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 2. No acute intracranial abnormality. David Montes MD Abdomen/Pelvis CT 07/26/16 0000 Signed Impressions: Service Date/Time: Tuesday, July 26, 2016 16:52 - CONCLUSION: 1. Infrarenal abdominal aortic aneurysm measures 3.4 cm. Aneurysmal dilatation right common iliac artery. 2. 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 3. Prominence of the left adrenal gland. David Montes MD Physical Exam HEENT: EOMI; normocephalic; atraumatic; no jaundice. CHEST: CTA CARDIAC: RRR ABDOMEN: Soft, nondistended, nontender; no hepatosplenomegaly; bowel sounds are present in all four quadrants. EXTREMITIES: No clubbing, cyanosis, edema right hand, BLE SKIN: Normal; no rash; no jaundice. INTERIOR DESIGN COORDINATOR: alert, mildly confused. (Miriam Willett) Assessment and Plan Plan ASSESSMENT - anemia - hgb 4.4 on admission, s/p PRBC. 8.0. No signs bleeding. Pt denies melena, hematemesis, or other bleeding. He was just extubated and seems mildly confused and does not answer all questions. Will wait and see how he is tomorrow and d/w him EGD PLAN - MORIAH - consider EGD when more alert and verbal - monitor HH - transfuse PRN - notify GI of active bleeding This pt seen by myself and Dr Gastelum and this note is written on his behalf ( Miriam Willett) Physician Comments Agree with the plan as above, discussed with the cafeteria or lunchroom checker. Will need endoscopic evaluation prior to chronic anticoagulation for DVT, will proceed in AM as medical necessity . (Santos Gastelum MD) Miriam Willett Jul 28, 2016 13:53 Santos Gastelum MD Jul 28, 2016 14:31
--- NOTE | 2016-07-28 14:50 | RADRPT ---
EXAM DATE/TIME: 07/28/2016 13:42 [facility] COMPARISON: No previous studies available for comparison. INDICATIONS : Left leg pain. MEDICAL HISTORY : Pulmonary embolism in 2011. SURGICAL HISTORY : None. Unable to obtain. ENCOUNTER: Initial ACUITY: 3 days PAIN SCORE: 5/10 LOCATION: Left leg. TECHNIQUE: Venous ultrasound of the leg was performed from the inguinal ligament to the proximal calf. Real-klarissa e, color Doppler and spectral tracing, compression and augmentation techniques were used. FINDINGS: The examination demonstrates DVT. There is partially occlusive clot extending throughout the saphenof emoral vein and the popliteal vein. There is clot seen in the peroneal and posterior tibial vein as w ell. CONCLUSION: The exam is positive for DVT within the left lower extremity. Iftikhar Arana MD on July 28, 2016 at 14:46 Board Certified Radiologist. This report was verified electronically.
[2016-07-28 14:58] LABS: WBC, SYNOVIAL FLUID 34200 /MM3 (0-200)
--- NOTE | 2016-07-28 15:18 | HHI.IDPN ---
Subjective Subjective Remarks Patient is a 71-year-old male, brought into the hospital after he was found unresponsive. He apparently has a roommate and when he left the morning patient was question asleep or unresponsive. His ROM A went to work and when he came back patient was found in the same position in same location. EMS was called and patient was found to be hypotensive and hypoxic. Patient was given fluid resuscitation and brought into the emergency room. He ended up getting intubated in the emergency room. In the ER he was febrile, and tachycardic. He was given more fluid resuscitation. He was found to have a hemoglobin of 4.4. Creatinine was 2.7, and lactic acid was 6.2. His troponin was elevated. He was in atrial fibrillation with RVR. He was placed on Cardizem and has converted to normal sinus rhythm. Patient remains on the vent. His blood pressure is okay. Blood cultures done in the ED is now reported as growing gram -positive cocci. CT chest with opacity L base. CT A/P showed infrarenal aneurysm, and one kidney seen L. 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 His temps are better. WBC is down to normal. Notes reviewed D/W RN Patient seen earlier today and again now He was on CPAP this morning and now extubated; on nasal O2 Ortho consulted this morning and aspirated his L knee - cloudy yellow fluid; analysis still pending BC with pneumococcus Antibiotics Razia Winslow Past Medical History PE Allergies: Coded Allergies: No Known Allergies (Unverified , 07/26/16) Objective . Vital Signs Date Time Temp Pulse Resp B/P Pulse Ox O2 Delivery O2 Flow Rate FiO2 07/28/16 13:00 90 19 130/59 96 07/28/16 12:00 86 07/28/16 12:00 98.4 86 18 114/56 98 07/28/16 11:50 99 Nasal Cannula 2 07/28/16 11:50 99 Nasal Cannula 2.00 07/28/16 11:00 91 14 100 07/28/16 10:00 82 07/28/16 10:00 82 14 106/57 07/28/16 09:00 81 16 100/52 100 07/28/16 08:00 35 07/28/16 08:00 86 07/28/16 08:00 98.0 86 14 103/55 100 07/28/16 07:44 Nasal Cannula 35 07/28/16 07:44 100 35 07/28/16 07:00 76 16 85/50 99 07/28/16 06:00 151 07/28/16 04:16 100 40 07/28/16 04:00 98.1 78 14 88/52 100 07/28/16 04:00 71 07/28/16 04:00 40 07/28/16 02:00 69 07/28/16 01:12 100 40 07/28/16 00:00 98.5 76 14 98/52 100 07/28/16 00:00 40 07/28/16 00:00 74 07/27/16 23:20 100 40 07/27/16 22:00 66 07/27/16 21:42 100 40 07/27/16 20:00 40 07/27/16 20:00 98.4 73 14 93/50 100 07/27/16 20:00 73 07/27/16 18:00 72 07/27/16 16:00 93 07/27/16 16:00 40 07/27/16 16:00 98.9 93 17 105/57 100 07/27/16 15:24 98 40 07/27/16 15:00 79 18 92/55 98 07/27/16 07/27/16 07/28/16 15:00 23:00 07:00 Intake Total 1001 ml 1827 ml 930 ml Output Total 300 ml 400 ml 300 ml Balance 701 ml 1427 ml 630 ml Intake Oral 0 ml IV Total 1001 ml 1429 ml 680 ml Tube Feeding 148 ml 0 ml Other 250 ml 250 ml Output Urine Total 300 ml 400 ml 300 ml # Bowel Movements 0 0 0 . Laboratory Tests Test 07/26/16 07/27/16 07/27/16 07/28/16 15:40 03:07 16:04 04:49 White Blood Count 13.0 TH/MM3 8.9 TH/MM3 10.7 TH/MM3 Red Blood Count 2.27 MIL/MM3 3.35 MIL/MM3 3.16 MIL/MM3 Hemoglobin 4.4 GM/DL 8.5 GM/DL 8.7 GM/DL 8.0 GM/DL Hematocrit 15.4 % 25.7 % 27.0 % 24.8 % Mean Corpuscular Volume 67.8 FL 76.6 FL 78.6 FL Mean Corpuscular Hemoglobin 19.5 PG 25.5 PG 25.3 PG Mean Corpuscular Hemoglobin 28.7 % 33.2 % 32.1 % Concent Red Cell Distribution Width 20.0 % 24.3 % 24.1 % Platelet Count 236 TH/MM3 148 TH/MM3 140 TH/MM3 Mean Platelet Volume 8.5 FL 8.5 FL 8.6 FL Neutrophils (%) (Auto) 83.2 % 91.3 % 93.2 % Lymphocytes (%) (Auto) 10.4 % 5.6 % 3.9 % Monocytes (%) (Auto) 6.4 % 2.9 % 2.9 % Eosinophils (%) (Auto) 0.0 % 0.0 % 0.0 % Basophils (%) (Auto) 0.0 % 0.2 % 0.0 % Neutrophils # (Auto) 10.8 TH/MM3 8.1 TH/MM3 9.9 TH/MM3 Lymphocytes # (Auto) 1.4 TH/MM3 0.5 TH/MM3 0.4 TH/MM3 Monocytes # (Auto) 0.8 TH/MM3 0.3 TH/MM3 0.3 TH/MM3 Eosinophils # (Auto) 0.0 TH/MM3 0.0 TH/MM3 0.0 TH/MM3 Basophils # (Auto) 0.0 TH/MM3 0.0 TH/MM3 0.0 TH/MM3 CBC Comment AUTO DIFF AUTO DIFF AUTO DIFF Differential Comment AUTO DIFF AUTO DIFF FINAL DIFF CONFIRMED CONFIRMED MANUAL Platelet Estimate NORMAL LOW LOW Platelet Morphology Comment NORMAL NORMAL ENLARGED Tear Drop Cells 1+ Ovalocytes 1+ Crenated Cell 2+ 1+ Differential Total Cells 100 Counted Neutrophils % (Manual) 86 % Band Neutrophils % 12 % Lymphocytes % 1 % Monocytes % 1 % Neutrophils # (Manual) 10.5 TH/MM3 Nucleated Red Blood Cells 1 /100 WBC Toxic Granulation 1+ Acanthocytes 1+ Keratocytes OCC Laboratory Tests Test 07/26/16 07/26/16 07/26/16 07/26/16 15:38 15:40 18:30 20:35 Lactic Acid Level 6.2 mmol/L 3.3 mmol/L Ammonia 23 MCMOL/L Sodium Level 148 MEQ/L Potassium Level 4.0 MEQ/L Chloride Level 116 MEQ/L Carbon Dioxide Level 16.8 MEQ/L Anion Gap 15 MEQ/L Blood Urea Nitrogen 60 MG/DL Creatinine 2.73 MG/DL Estimat Glomerular Filtration 23 ML/MIN Rate Random Glucose 159 MG/DL Calcium Level 8.8 MG/DL Phosphorus Level 4.4 MG/DL Magnesium Level 2.3 MG/DL 2.3 MG/DL Total Bilirubin 0.8 MG/DL Aspartate Amino Transf 16 U/L (AST/SGOT) Alanine Aminotransferase 9 U/L (ALT/SGPT) Alkaline Phosphatase 24 U/L Total Creatine Kinase 233 U/L 293 U/L Creatine Kinase MB 1.1 NG/ML 2.4 NG/ML Troponin I 0.53 NG/ML 0.68 NG/ML Total Protein 6.9 GM/DL Albumin 2.1 GM/DL Lipase 160 U/L Test 07/26/16 07/27/16 07/27/16 07/27/16 22:40 03:07 11:35 16:04 Lactic Acid Level 2.8 mmol/L 1.7 mmol/L Sodium Level 151 MEQ/L 151 MEQ/L Potassium Level 3.4 MEQ/L 3.4 MEQ/L Chloride Level 120 MEQ/L 121 MEQ/L Carbon Dioxide Level 21.9 MEQ/L 17.7 MEQ/L Anion Gap 9 MEQ/L 12 MEQ/L Blood Urea Nitrogen 57 MG/DL 57 MG/DL Creatinine 2.30 MG/DL 2.42 MG/DL Estimat Glomerular Filtration 28 ML/MIN 27 ML/MIN Rate Random Glucose 134 MG/DL 154 MG/DL Calcium Level 7.9 MG/DL 8.3 MG/DL Magnesium Level 2.1 MG/DL 2.2 MG/DL Iron Level 53 MCG/DL Total Iron Binding Capacity 234 MCG/DL Percent Iron Saturation 22.7 % Total Bilirubin 1.8 MG/DL 1.5 MG/DL Aspartate Amino Transf 24 U/L 22 U/L (AST/SGOT) Alanine Aminotransferase 13 U/L 13 U/L (ALT/SGPT) Alkaline Phosphatase 23 U/L 20 U/L Total Creatine Kinase 159 U/L 148 U/L Creatine Kinase MB 1.4 NG/ML 1.4 NG/ML Troponin I 1.00 NG/ML 0.86 NG/ML 0.71 NG/ML Total Protein 5.8 GM/DL 5.8 GM/DL Albumin 1.8 GM/DL 1.7 GM/DL Vitamin B12 Level 1000 PG/ML Test 07/27/16 07/28/16 22:54 04:49 Troponin I 0.52 NG/ML 0.33 NG/ML Sodium Level 155 MEQ/L Potassium Level 2.9 MEQ/L Chloride Level 124 MEQ/L Carbon Dioxide Level 21.8 MEQ/L Anion Gap 9 MEQ/L Blood Urea Nitrogen 56 MG/DL Creatinine 2.34 MG/DL Estimat Glomerular Filtration 28 ML/MIN Rate Random Glucose 207 MG/DL Calcium Level 8.4 MG/DL Phosphorus Level 4.0 MG/DL Albumin 1.7 GM/DL Microbiology Date/Time Procedure Status Source Growth 07/26/16 15:30 Aerobic Blood Culture - Preliminary Resulted Blood Peripheral Streptococcus Pneumoniae 07/26/16 15:30 Anaerobic Blood Culture - Final Resulted Streptococcus Pneumoniae 07/26/16 15:39 Urine Culture - Final Complete Urine Catheterized Urine NO GROWTH IN 48 HOURS. 07/26/16 15:40 Aerobic Blood Culture - Final Complete Blood Peripheral Streptococcus Pneumoniae 07/26/16 15:40 Anaerobic Blood Culture - Final Complete Streptococcus Pneumoniae 07/26/16 19:57 Gram Stain - Final Resulted Sputum Endotracheal 07/26/16 19:57 Sputum Culture - Preliminary Resulted Gram Negative Coccobacilli 07/27/16 13:00 Legionella Antigen - Final Complete Urine Catheterized Urine PRESUMPTIVE NEGATIVE FOR LEGIONELLA P... 07/27/16 13:00 Streptococcus pneumoniae Antigen (M - Final Complete Urine Catheterized Urine PRESUMPTIVE NEGATIVE FOR STREPTOCOCCU... 07/27/16 16:04 Aerobic Blood Culture - Preliminary Resulted Blood Peripheral NO GROWTH IN 1 DAY 07/27/16 16:04 Anaerobic Blood Culture - Preliminary Resulted Blood Peripheral NO GROWTH IN 1 DAY 07/27/16 16:11 Aerobic Blood Culture - Preliminary Resulted Blood Peripheral NO GROWTH IN 1 DAY 07/27/16 16:11 Anaerobic Blood Culture - Preliminary Resulted Blood Peripheral NO GROWTH IN 1 DAY 07/28/16 12:40 Gram Stain - Final Resulted Wound Knee 07/28/16 12:40 Wound Culture Resulted Wound Knee Pending Imaging Last Impressions Chest X-Ray 07/28/16 0000 Signed Impressions: Service Date/Time: Thursday, July 28, 2016 09:35 - CONCLUSION: 1. The side port of the gastric tube is approximately 5 cm above the level of the diaphragm and needs to be advanced. 2. Persistent dense consolidation left lower lobe. Hector Crawford MD Knee X-Ray 07/27/16 1647 Signed Impressions: Service Date/Time: Wednesday, July 27, 2016 21:30 - CONCLUSION: Intact left knee. Mild osteoarthritis, nonspecific joint effusion and suspected distal quadriceps tendinosis. Josue Dimas MD Hip X-Ray 07/27/16 1647 Signed Impressions: Service Date/Time: Wednesday, July 27, 2016 21:24 - CONCLUSION: No acute bony abnormality demonstrated. No fracture, subluxation or significant joint space narrowing of the left hip. Josue Dimas MD Head CT 07/26/16 1534 Signed Impressions: Service Date/Time: Tuesday, July 26, 2016 16:47 - CONCLUSION: 1. 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 2. No acute intracranial abnormality. David Montes MD Abdomen/Pelvis CT 07/26/16 0000 Signed Impressions: Service Date/Time: Tuesday, July 26, 2016 16:52 - CONCLUSION: 1. Infrarenal abdominal aortic aneurysm measures 3.4 cm. Aneurysmal dilatation right common iliac artery. 2. 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 3. Prominence of the left adrenal gland. David Montes MD Physical Exam GENERAL: awake and following commands, on nasal O2. Confused SKIN: Warm and dry. No generalized rash, no ecchymoses and no evidence of embolic lesions. HEENT: [place] conjunctiva. No petechia or hemorrhage. No scleral icterus. No injection or drainage. Nose without bleeding or purulent nasal discharge. Mucous membranes pink and moist. No oral lesions noted. No exudate. No oral thrush. He is edentulous. NECK: Trachea midline. Supple and not tender, no meningeal signs CARDIOVASCULAR: Regular rate and rhythm. No murmurs, rubs or gallops heard RESPIRATORY: Coarse BS bilaterally, decreased at the bases. No wheezing or rhonchi ABDOMEN: Soft, flat, mildly distended, with mild diffuse tenderness. Bowel sounds present and normoactive. No guarding. No rebound. EXTREMITIES: No clubbing, or cyanosis. Has bilateral pedal edema. His LLE looks bigger than RLE. Has significant pain with any movement of his LLE. NEUROLOGICAL: Awake and alert. Cranial nerves grossly intact. Motor grossly within normal limits. PSYCHIATRIC: Looks anxious, cooperative. LINE: No evidence of infection : [place] in place, urine looks clear Assessment & Plan Remarks IMPRESSION Sepsis, on admission, due to PNA Pneumococcal bacteremia, from PNA Respiratory failure Renal insufficiency Atrial fib RVR, back in NSR Severe anemia, GIB L knee effusion, ?inflammatory vs infectious DVT LLE RECOMMENDATION Continue Vancomycin Continue Zosyn Follow C/S Monitor progress Ortho following - deciding if taking patient to OR D/W RN D/W Adela Hahn MD Jul 28, 2016 15:18
[2016-07-28] MEDS ORDERED: PEG (High)/E-LYTE SOLN 4000 ML BTL PO ONE (16:30)
[2016-07-28] MEDS: AMIODARONE INJ 450 MG in D5W (EXCEL BAG) 241 ML IV SCH (17:33)
[2016-07-28] MEDS: methylPREDNISolone SOD SUCC 40 MG/1 ML VIAL IV PUSH SCH (21:00)
[2016-07-28 21:55] LABS: HEMATOCRIT 28.6 % (39.0-51.0)
[2016-07-28 21:58] LABS: REVIEW FLAG FINAL
--- NOTE | 2016-07-28 22:29 | RADRPT ---
EXAM DATE/TIME: 07/28/2016 21:45 [facility] COMPARISON: No previous studies available for comparison. INDICATIONS : Right leg swelling. Deep vein thrombosis seen in the left leg. MEDICAL HISTORY : Pulmonary embolism. SURGICAL HISTORY : None. ENCOUNTER: Initial ACUITY: 1 day PAIN SCORE: 0/10 LOCATION: Right leg. TECHNIQUE: Venous ultrasound of the leg was performed from the inguinal ligament to the proximal calf. Real-klarissa e, color Doppler and spectral tracing, compression and augmentation techniques were used. FINDINGS: There is nonocclusive thrombus in the right common femoral vein, superficial femoral vein, popliteal, peroneal and anterior tibial veins. Greater saphenous vein thrombosis also seen. . CONCLUSION: Nonocclusive thrombus in the right leg. David Montes MD on July 28, 2016 at 22:26 Board Certified Radiologist. This report was verified electronically.
[2016-07-28] MEDS ORDERED: POTASSIUM CHLORIDE 25 MEQ EFFERVESCENT TAB NG ONE (22:45)
[2016-07-28] MEDS: POTASSIUM CHLOR 10 MEQ PREMIX 100 ML IV SCH (23:36)
[2016-07-29] VITALS (16 sets, daily range): BP systolic 110–133; BP diastolic 51–73; PULSE 77–93; RESP 22–34; TEMP 97.7–99.3; O2SAT 48–98
[2016-07-29] MEDS: POTASSIUM CHLOR 10 MEQ PREMIX 100 ML IV SCH ×5 (00:43→10:00)
[2016-07-29] MEDS: RESP: ALBUTEROL 2.5 MG/IPRATROPIUM 0.5 MG NEB (SCH) NEB ×5 (01:52→21:09)
[2016-07-29] MEDS: INSULIN NovoLIN REGULAR SUPPLEMENTAL SCALE SQ SCH ×4 (03:45→21:45)
[2016-07-29] MEDS: CHLORHEXIDINE GLUCONATE 2 % 1 PACK (2 CLOTHS) TOP SCH (04:00)
[2016-07-29] MEDS: FREE WATER G-TUBE SCH ×5 (04:00→20:00)
[2016-07-29] MEDS: PANTOPRAZOLE INJ 80 MG in SODIUM CHLORIDE 0.9% INJ 100 ML IV SCH ×2 (05:16→15:30)
[2016-07-29] MEDS: PIPERACIL-TAZO 3.375 GM PREMIX 50 ML IV SCH ×4 (05:16→22:00)
[2016-07-29] MEDS: DEXTROSE 5% IN WATE 1000ML INJ 1,000 ML IV SCH (05:17)
[2016-07-29 05:40] LABS: AUTOMATED NEUTROPHIL # 20.5 TH/MM3 (1.8-7.7); BASOPHIL % 0.1 % (0.0-2.0); HEMATOCRIT 29.2 % (39.0-51.0); LYMPH % 2.2 % (9.0-44.0); LYMPHOCYTE # 0.5 TH/MM3 (1.0-4.8); MEAN CELL VOLUME 78.6 FL (80.0-100.0); MEAN CORPUSCULAR HEMOGLOBIN 25.3 PG (27.0-34.0); MEAN CORPUSCULAR HGB CONC 32.2 % (32.0-36.0); MONO % 1.1 % (0.0-8.0); NEUT % 96.6 % (16.0-70.0); PLATELET COUNT 189 TH/MM3 (150-450); RED BLOOD COUNT 3.72 MIL/MM3 (4.50-5.90); RED CELL DISTRIBUTION WIDTH 23.1 % (11.6-17.2); WHITE BLOOD COUNT 21.2 TH/MM3 (4.0-11.0)
[2016-07-29 05:45] LABS: HEMO FLAGS AUTO DIFF
[2016-07-29 06:04] LABS: BICARBONATE 22.5 MEQ/L (21.0-32.0); POTASSIUM 3.3 MEQ/L (3.5-5.1)
[2016-07-29 07:58] LABS: ACANTHOCYTES 1+ (NORMAL); BURR CELLS 1+ (NORMAL); OVALOCYTES 1+ (NORMAL); SCAN/DIFF AUTO DIFF CONFIRMED
[2016-07-29] MEDS: CHLORHEXIDINE 0.12% (ORAL KIT) 15 ML CUP MT SCH ×2 (08:00→20:00)
[2016-07-29] MEDS: SENNOSIDES SYRUP 8.8 MG/5 ML CUP PO SCH (09:00)
[2016-07-29] MEDS: DOCUSATE SODIUM 100 MG/10 ML UDC PO SCH ×2 (09:00→20:20)
[2016-07-29] MEDS: methylPREDNISolone SOD SUCC 40 MG/1 ML VIAL IV PUSH SCH ×2 (09:00→20:20)
--- NOTE | 2016-07-29 09:04 | MB ---
cc: MALATHI WARD DATE OF CONSULTATION 07/28/2016 DATE OF 1945 CHIEF COMPLAINT Left knee pain with effusion. HISTORY OF PRESENT ILLNESS The patient was brought to the emergency department on 07/26/2016 by EMS for altered mental status. The patient's roommate noticed he was sitting on the couch and was minimally responsive. EMS came to the house and found the patient to be hypotensive and hypoxic. The patient was admitted to the hospital and placed on a ventilator. The patient was extubated prior to my arrival in the unit. The patient is having a difficult time verbalizing however, the patient does respond to painful stimuli. I am currently unable to acquire any past medical history from the patient. The patient does have pain to palpation about the knee. The patient's knee x-ray showed a large joint effusion and the undersigned was consulted to rule out infection. PAST MEDICAL HISTORY The patient does have a history of a pulmonary embolism in February 2011. PAST SURGICAL HISTORY I have unable to determine any surgical history at this time. SOCIAL HISTORY Includes no alcohol use and tobacco use of four cigarettes a day. ALLERGIES THERE ARE NO KNOWN DRUG ALLERGIES. REVIEW OF SYSTEMS Negative times 12 except for what is stated in the HPI. MEDICATIONS See nurse's notes. PHYSICAL EXAMINATION VITAL SIGNS: Are as follows, temperature 98, pulse 82, respirations 14, pulse ox is 99% on 2 liters nasal cannula. Blood pressure is 103/55. GENERAL: The patient is awake and alert and responds to painful stimuli. The patient is in no acute distress. The patient is cachectic in appearance. SKIN: Warm and dry. The patient has bruising about his extremities. HEENT: Head is atraumatic and normocephalic. Eyes are SUZETTE. Ear, nose, and throat, mucous membranes are pink and moist. NECK: Supple and trachea is midline. CARDIOVASCULAR: The patient has normal rate and rhythm. The patient has 2+ pedal pulses and 2+ radial pulses bilaterally. RESPIRATORY: The patient is extubated and breathing independently. The patient has no respiratory distress. Chest rise is symmetric. GASTROINTESTINAL: Abdomen is soft, nontender, nondistended. MUSCULOSKELETAL: The patient does have swelling and tenderness about the left knee. The patient appears to have a flexion contracture of the left knee. There is a large joint effusion. There is warmth to the left knee. The patient has limited range of motion secondary to pain. The patient moves the left ankle without difficulty. However, there is some pain response to dorsiflexion of the foot with some tenderness about the left calf. The patient also has some mild limitation with range of motion of the left hip which could be due to pain about the knee. The patient has good range of motion and no tenderness to palpation of the right lower extremity and bilateral upper extremities. NEUROLOGIC: The patient is alert and responsive but is having a difficult time verbalizing due to his recent extubation. The patient is responsive. The patient follows commands. LABORATORY DATA Labs taken on 07/28/2016 shows white blood cell count 10.7, hemoglobin of 8, hematocrit of 24.8, platelets are 140. Potassium is 2.9, creatinine is 2.34, glucose is 207. IMAGING STUDIES X-rays of the left hip with an AP of the pelvis taken on 07/27/2016 reads as no acute bony abnormality. There is no fracture, subluxation, or significant joint space narrowing of the left hip. I have reviewed the above images and agree with the radiologist's interpretation. X-rays of the left knee two views taken on 07/27/2016 reads as intact left knee with mild osteoarthritis. There is a nonspecific joint effusion and suspected distal quadriceps tendinosis. I have reviewed the above images and do feel that the patient has mild to moderate osteoarthritis of the left knee. There is a moderate to large joint effusion. CT of the abdomen and pelvis without IV contrast on 07/26/2016 reads as an abdominal aortic aneurysm measuring 3.4 cm. There is absence of right kidney which could be postsurgical. There is prominence of the left adrenal gland. I did review the above images and do not see any obvious fracture or bony abnormality about the pelvis or bilateral hips. IMPRESSION 1. Left knee mild to moderate osteoarthritis. 2. Left knee large joint effusion, rule out septic knee. 3. Left calf swelling and tenderness, rule out DVT. MEDICAL DECISION MAKING This is a difficult and complex situation in that the patient has recently been extubated and is unable to completely verbalize where he is having pain. The patient does appear to be symptomatic about the left lower extremity. The patient's physical exam does confirm a large joint effusion about the left knee. I did obtain verbal consent from the patient for a left knee aspiration. The patient's left knee was prepped with alcohol and Betadine. The patient did have 45 mL of cloudy aspirated which was removed from the left knee and sent for cell count, Gram stain, culture, and crystals. The patient also appeared to have some tenderness about the left calf with palpation and with dorsiflexion of the left ankle. I am going to order a stat ultrasound of the left lower extremity to rule out DVT. Depending upon the patient's lab results from the knee aspirate will determine the plan of care moving forward. Based on the consistency of the aspirate, I am concerned for infection. I did have a brief conversation with the patient regarding the need for surgical management if his cell count and culture confirm infection to the left knee. Surgery would consist of an arthrotomy with irrigation and debridement of the tissue. The patient would likely require a drain along with an infectious disease consult. If the aspirate comes back negative, no further management would be required orthopedically. The patient would be appropriate for physical therapy. We will continue to follow the labs and will proceed accordingly. I have reviewed the above impression and plan of care with Dr. Ward and he agrees with this documentation. DICTATED BY: YAMILE Izquierdo MD NOY Rizvi/MIRIAN /12:53 PM /8:54 AM
[2016-07-29] MEDS ORDERED: PHARMACY ORDERED LAB ONE (09:45)
[2016-07-29] MEDS ORDERED: CHLOROTHIAZIDE SOD 500 MG VIAL IV ONE (10:30)
[2016-07-29] MEDS: AMIODARONE INJ 450 MG in D5W (EXCEL BAG) 241 ML IV SCH (10:47)
[2016-07-29] MEDS ORDERED: VANCOMYCIN INJ 1,250 MG in SODIUM CHLOR 0.9% 250 ML INJ 250 ML IV ONE (11:00)
--- NOTE | 2016-07-29 11:00 | HHI.IDPN ---
Subjective Subjective Remarks Patient is a 71-year-old male, brought into the hospital after he was found unresponsive. He apparently has a roommate and when he left the morning patient was question asleep or unresponsive. His ROM A went to work and when he came back patient was found in the same position in same location. EMS was called and patient was found to be hypotensive and hypoxic. Patient was given fluid resuscitation and brought into the emergency room. He ended up getting intubated in the emergency room. In the ER he was febrile, and tachycardic. He was given more fluid resuscitation. He was found to have a hemoglobin of 4.4. Creatinine was 2.7, and lactic acid was 6.2. His troponin was elevated. He was in atrial fibrillation with RVR. He was placed on Cardizem and has converted to normal sinus rhythm. Patient remains on the vent. His blood pressure is okay. Blood cultures done in the ED is now reported as growing gram -positive cocci. CT chest with opacity L base. CT A/P showed infrarenal aneurysm, and one kidney seen L. 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 His temps are better. WBC is down to normal. Notes reviewed D/W RN On nasal O2 Has a very moist and weak cough Started on steroids yesterday Has pseudogout G/S L knee fluid no organism seen, C/S pending Has LLE DVT and non-occlusive thrombus R leg Vanco level 15.7, to get dose Vanco today Creatinine better WBC rising - likely due to steroids started yesterday BC with Strep pneumo - no sensitivity results yet No new (+) BC Sputum C/S still pending Antibiotics Vanco Zosyn Past Medical History PE Allergies: Coded Allergies: No Known Allergies (Unverified , 07/26/16) Objective . Vital Signs Date Time Temp Pulse Resp B/P Pulse Ox O2 Delivery O2 Flow Rate FiO2 07/29/16 09:47 95 Nasal Cannula 2.00 07/29/16 08:00 78 07/29/16 08:00 99.1 85 22 124/59 98 07/29/16 07:55 98.3 81 22 116/73 98 07/29/16 06:00 78 07/29/16 04:00 77 07/29/16 04:00 98.2 93 25 133/60 48 07/29/16 02:00 82 07/29/16 00:00 98.2 82 25 126/61 94 07/29/16 00:00 83 07/28/16 22:00 84 07/28/16 20:32 100 Nasal Cannula 1.00 07/28/16 20:00 85 07/28/16 20:00 99.1 85 22 124/59 98 07/28/16 18:00 88 07/28/16 18:00 88 18 114/56 91 07/28/16 17:00 107 22 123/74 94 07/28/16 16:00 98.2 92 34 127/66 07/28/16 16:00 92 07/28/16 15:00 85 31 110/53 95 07/28/16 14:00 83 46 104/77 97 07/28/16 14:00 86 07/28/16 13:00 90 19 130/59 96 07/28/16 12:00 86 07/28/16 12:00 98.4 86 18 114/56 98 07/28/16 11:50 99 Nasal Cannula 2 07/28/16 11:50 99 Nasal Cannula 2.00 07/28/16 11:00 91 14 100 07/28/16 07/28/16 07/29/16 15:00 23:00 07:00 Intake Total 1222 ml 2958 ml 2884 ml Output Total 400 ml 425 ml 450 ml Balance 822 ml 2533 ml 2434 ml Intake Oral 0 ml 0 ml IV Total 1022 ml 956 ml 1010 ml Tube Feeding 0 ml 0 ml Other 200 ml 2002 ml 1874 ml Output Urine Total 400 ml 425 ml 450 ml Tube Feeding Residual Discard 0 ml # Bowel Movements 0 0 3 . Laboratory Tests Test 07/27/16 07/28/16 07/28/16 07/29/16 16:04 04:49 21:10 04:22 Hemoglobin 8.7 GM/DL 8.0 GM/DL 9.0 GM/DL 9.4 GM/DL Hematocrit 27.0 % 24.8 % 28.6 % 29.2 % White Blood Count 10.7 TH/MM3 21.2 TH/MM3 Red Blood Count 3.16 MIL/MM3 3.72 MIL/MM3 Mean Corpuscular Volume 78.6 FL 78.6 FL Mean Corpuscular Hemoglobin 25.3 PG 25.3 PG Mean Corpuscular Hemoglobin 32.1 % 32.2 % Concent Red Cell Distribution Width 24.1 % 23.1 % Platelet Count 140 TH/MM3 189 TH/MM3 Mean Platelet Volume 8.6 FL 9.3 FL Neutrophils (%) (Auto) 93.2 % 96.6 % Lymphocytes (%) (Auto) 3.9 % 2.2 % Monocytes (%) (Auto) 2.9 % 1.1 % Eosinophils (%) (Auto) 0.0 % 0.0 % Basophils (%) (Auto) 0.0 % 0.1 % Neutrophils # (Auto) 9.9 TH/MM3 20.5 TH/MM3 Lymphocytes # (Auto) 0.4 TH/MM3 0.5 TH/MM3 Monocytes # (Auto) 0.3 TH/MM3 0.2 TH/MM3 Eosinophils # (Auto) 0.0 TH/MM3 0.0 TH/MM3 Basophils # (Auto) 0.0 TH/MM3 0.0 TH/MM3 CBC Comment AUTO DIFF AUTO DIFF Differential Total Cells 100 Counted Neutrophils % (Manual) 86 % Band Neutrophils % 12 % Lymphocytes % 1 % Monocytes % 1 % Neutrophils # (Manual) 10.5 TH/MM3 Nucleated Red Blood Cells 1 /100 WBC Differential Comment FINAL DIFF AUTO DIFF MANUAL CONFIRMED Toxic Granulation 1+ Platelet Estimate LOW Platelet Morphology Comment ENLARGED Crenated Cell 1+ Acanthocytes 1+ 1+ Keratocytes OCC Ovalocytes 1+ Chhaya Cells 1+ Laboratory Tests Test 07/27/16 07/27/16 07/27/16 07/28/16 11:35 16:04 22:54 04:49 Sodium Level 151 MEQ/L 155 MEQ/L Potassium Level 3.4 MEQ/L 2.9 MEQ/L Chloride Level 121 MEQ/L 124 MEQ/L Carbon Dioxide Level 17.7 MEQ/L 21.8 MEQ/L Anion Gap 12 MEQ/L 9 MEQ/L Blood Urea Nitrogen 57 MG/DL 56 MG/DL Creatinine 2.42 MG/DL 2.34 MG/DL Estimat Glomerular Filtration 27 ML/MIN 28 ML/MIN Rate Random Glucose 154 MG/DL 207 MG/DL Calcium Level 8.3 MG/DL 8.4 MG/DL Magnesium Level 2.2 MG/DL Total Bilirubin 1.5 MG/DL Aspartate Amino Transf 22 U/L (AST/SGOT) Alanine Aminotransferase 13 U/L (ALT/SGPT) Alkaline Phosphatase 20 U/L Total Creatine Kinase 148 U/L Creatine Kinase MB 1.4 NG/ML Troponin I 0.86 NG/ML 0.71 NG/ML 0.52 NG/ML 0.33 NG/ML Total Protein 5.8 GM/DL Albumin 1.7 GM/DL 1.7 GM/DL Lactic Acid Level 1.7 mmol/L Phosphorus Level 4.0 MG/DL Test 07/28/16 07/29/16 21:10 04:22 Potassium Level 2.8 MEQ/L 3.3 MEQ/L Sodium Level 153 MEQ/L Chloride Level 117 MEQ/L Carbon Dioxide Level 22.5 MEQ/L Anion Gap 14 MEQ/L Blood Urea Nitrogen 52 MG/DL Creatinine 2.10 MG/DL Estimat Glomerular Filtration 31 ML/MIN Rate Random Glucose 121 MG/DL Calcium Level 8.6 MG/DL Microbiology Date/Time Procedure Status Source Growth 07/26/16 15:30 Aerobic Blood Culture - Preliminary Resulted Blood Peripheral Streptococcus Pneumoniae 07/26/16 15:30 Anaerobic Blood Culture - Final Resulted Streptococcus Pneumoniae 07/26/16 15:39 Urine Culture - Final Complete Urine Catheterized Urine NO GROWTH IN 48 HOURS. 07/26/16 15:40 Aerobic Blood Culture - Final Complete Blood Peripheral Streptococcus Pneumoniae 07/26/16 15:40 Anaerobic Blood Culture - Final Complete Streptococcus Pneumoniae 07/26/16 19:57 Gram Stain - Final Resulted Sputum Endotracheal 07/26/16 19:57 Sputum Culture - Preliminary Resulted Gram Negative Coccobacilli 07/27/16 13:00 Legionella Antigen - Final Complete Urine Catheterized Urine PRESUMPTIVE NEGATIVE FOR LEGIONELLA P... 07/27/16 13:00 Streptococcus pneumoniae Antigen (M - Final Complete Urine Catheterized Urine PRESUMPTIVE NEGATIVE FOR STREPTOCOCCU... 07/27/16 16:04 Aerobic Blood Culture - Preliminary Resulted Blood Peripheral NO GROWTH IN 1 DAY 07/27/16 16:04 Anaerobic Blood Culture - Preliminary Resulted Blood Peripheral NO GROWTH IN 1 DAY 07/27/16 16:11 Aerobic Blood Culture - Preliminary Resulted Blood Peripheral NO GROWTH IN 1 DAY 07/27/16 16:11 Anaerobic Blood Culture - Preliminary Resulted Blood Peripheral NO GROWTH IN 1 DAY 07/28/16 12:40 Gram Stain - Final Resulted Wound Knee 07/28/16 12:40 Wound Culture Resulted Wound Knee Pending Imaging Last Impressions Chest X-Ray 07/28/16 0000 Signed Impressions: Service Date/Time: Thursday, July 28, 2016 09:35 - CONCLUSION: 1. The side port of the gastric tube is approximately 5 cm above the level of the diaphragm and needs to be advanced. 2. Persistent dense consolidation left lower lobe. Hector Crawford MD Knee X-Ray 07/27/16 1647 Signed Impressions: Service Date/Time: Wednesday, July 27, 2016 21:30 - CONCLUSION: Intact left knee. Mild osteoarthritis, nonspecific joint effusion and suspected distal quadriceps tendinosis. Josue Dimas MD Hip X-Ray 07/27/167 Signed Impressions: Service Date/Time: Wednesday, July 27, 2016 21:24 - CONCLUSION: No acute bony abnormality demonstrated. No fracture, subluxation or significant joint space narrowing of the left hip. Josue Dimas MD Head CT 07/26/16 1534 Signed Impressions: Service Date/Time: Tuesday, July 26, 2016 16:47 - CONCLUSION: 1. 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 2. No acute intracranial abnormality. David Montes MD Abdomen/Pelvis CT 07/26/16 0000 Signed Impressions: Service Date/Time: Tuesday, July 26, 2016 16:52 - CONCLUSION: 1. Infrarenal abdominal aortic aneurysm measures 3.4 cm. Aneurysmal dilatation right common iliac artery. 2. 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 3. Prominence of the left adrenal gland. David Montes MD Physical Exam GENERAL: awake and following commands, on nasal O2. Cachectic SKIN: Warm and dry. No generalized rash, no ecchymoses and no evidence of embolic lesions. HEENT: Santel conjunctiva. No petechia or hemorrhage. No scleral icterus. No injection or drainage. Mucous membranes pink and moist. No oral lesions noted. No exudate. No oral thrush. He is edentulous. NECK: Trachea midline. Supple and not tender, no meningeal signs CARDIOVASCULAR: Regular rate and rhythm. No murmurs, rubs or gallops heard RESPIRATORY: Coarse BS bilaterally, decreased at the bases. No wheezing or rhonchi ABDOMEN: Soft, flat, mildly distended, with mild diffuse tenderness. Bowel sounds present and normoactive. No guarding. No rebound. EXTREMITIES: No clubbing, or cyanosis. Has bilateral pedal edema. His LLE looks bigger than RLE. Has significant pain with any movement of his LLE. NEUROLOGICAL: Awake and alert. Cranial nerves grossly intact. Motor grossly within normal limits. PSYCHIATRIC: Calm and cooperative. LINE: No evidence of infection : Weems in place, urine looks clear Assessment & Plan Remarks IMPRESSION Sepsis, on admission, due to PNA Pneumococcal bacteremia, from PNA Respiratory failure, extubated 6/6 Renal insufficiency, improving Atrial fib RVR, back in NSR Severe anemia, GIB L knee effusion, has pesudogout, ?with septic joint DVT LLE, non-occlusive thrombus RLE Leukocytosis, worse due to steroids RECOMMENDATION Continue Vancomycin - in not PCN resistant, change to Rocephin Continue Zosyn - sputum no GNR, will D/C Follow C/S Monitor progress Continue steroids for pseudogout D/W Adela Handy MD Jul 29, 2016 11:00
--- NOTE | 2016-07-29 11:42 | HHI.NPPN ---
Subjective General Problems: Hypotension, Mebatolic Acidosis Renal Failure: Acute Interval History He has been extubated but has not passed swallow evaluation. Renal function is better. Hypokalemia is improving. (Nohemy Walker) Review of Systems General Constitutional: Fatigue (Nohemy Walker) Musculoskeletal MS: Pain/Stiffness, Swelling in Joint MS Remarks left knee (Nohemy Walker) Objective Data Data 07/28/16 07/29/16 19:00 07:00 Intake Total 1222 ml 5842 ml Output Total 400 ml 875 ml Balance 822 ml 4967 ml Intake Oral 0 ml 0 ml IV Total 1022 ml 1966 ml Tube Feeding 0 ml 0 ml Other 200 ml 3876 ml Output Urine Total 400 ml 875 ml Tube Feeding Residual Discard 0 ml # Bowel Movements 0 3 Vital Signs Date Time Temp Pulse Resp B/P Pulse Ox O2 Delivery O2 Flow Rate FiO2 07/29/16 10:00 78 07/29/16 09:47 95 Nasal Cannula 2.00 07/29/16 08:00 78 07/29/16 08:00 99.1 85 22 124/59 98 07/29/16 07:55 98.3 81 22 116/73 98 07/29/16 06:00 78 07/29/16 04:00 77 07/29/16 04:00 98.2 93 25 133/60 48 07/29/16 02:00 82 07/29/16 00:00 98.2 82 25 126/61 94 07/29/16 00:00 83 07/28/16 22:00 84 07/28/16 20:32 100 Nasal Cannula 1.00 07/28/16 20:00 85 07/28/16 20:00 99.1 85 22 124/59 98 07/28/16 18:00 88 07/28/16 18:00 88 18 114/56 91 07/28/16 17:00 107 22 123/74 94 07/28/16 16:00 98.2 92 34 127/66 07/28/16 16:00 92 07/28/16 15:00 85 31 110/53 95 07/28/16 14:00 83 46 104/77 97 07/28/16 14:00 86 07/28/16 13:00 90 19 130/59 96 07/28/16 12:00 86 07/28/16 12:00 98.4 86 18 114/56 98 07/28/16 11:50 99 Nasal Cannula 2 07/28/16 11:50 99 Nasal Cannula 2.00 (Nohemy Walker) -: 07/29/16 0422 07/29/16 0422 Microbiology 07/28/16 Gram Stain - Final, Resulted 07/28/16 Wound Culture, Resulted Pending Imaging Last 72 hours Impressions Lower Extremity Ultrasound 07/28/16 0000 Signed Impressions: Service Date/Time: Thursday, July 28, 2016 21:45 - CONCLUSION: Nonocclusive thrombus in the right leg. David Montes MD Lower Extremity Ultrasound 07/28/16 0000 Signed Impressions: Service Date/Time: Thursday, July 28, 2016 13:42 - CONCLUSION: The exam is positive for DVT within the left lower extremity. Iftikhar Arana MD Chest X-Ray 07/28/16 0000 Signed Impressions: Service Date/Time: Thursday, July 28, 2016 09:35 - CONCLUSION: 1. The side port of the gastric tube is approximately 5 cm above the level of the diaphragm and needs to be advanced. 2. Persistent dense consolidation left lower lobe. Hector Crawford MD Knee X-Ray 07/27/16 1647 Signed Impressions: Service Date/Time: Wednesday, July 27, 2016 21:30 - CONCLUSION: Intact left knee. Mild osteoarthritis, nonspecific joint effusion and suspected distal quadriceps tendinosis. Josue Dimas MD Hip X-Ray 07/27/16 1647 Signed Impressions: Service Date/Time: Wednesday, July 27, 2016 21:24 - CONCLUSION: No acute bony abnormality demonstrated. No fracture, subluxation or significant joint space narrowing of the left hip. Josue Dimas MD Chest X-Ray 07/27/16 0000 Signed Impressions: Service Date/Time: Wednesday, July 27, 2016 03:16 - CONCLUSION: New significant consolidation left lower lobe possible left lower lobe collapse. Right lung is clear Pritesh Horan MD Head CT 07/26/16 1534 Signed Impressions: Service Date/Time: Tuesday, July 26, 2016 16:47 - CONCLUSION: 1. 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 2. No acute intracranial abnormality. David Montes MD Chest X-Ray 07/26/16 1533 Signed Impressions: Service Date/Time: Tuesday, July 26, 2016 15:42 - CONCLUSION: No acute disease. Endotracheal tube 7 cm above the kari. David Montes MD Tubes & Lines: Weems Drip Comment amiodarone , Protonix (Nohemy Walker) Physical Exam General Appearance: Well Developed, No Acute Distress, Comfortable, Malnourished Appearance Remarks extubated, awake, answers questions (Nohemy Walker) Throat Throat Exam: Oral Mucosa Pine Level & Moist (Nohemy Walker) Pulmonary Resp Exam: Breath Sounds Equal, Crackles, Rhonchi Resp Remarks course throughout (Nohemy Walker) Cardiology CV Exam: Good Perfusion, Irregular, Arrhythmia (Nohemy Walker) Gastrointestinal/Abdomen GI Exam: Soft, Non-Tender, Bowel Sounds Present GI Remarks flat abdomen (Nohemy Walker) Musculoskeletal MS Exam: Joints Intact, Normal Tone MS Remarks pain in left leg with palpation (Nohemy Walker) Integumentary Skin Exam: Clear, Warm, Dry, Intact (Nohemy Walker) Extremeties Extremities Exam: No Edema, Pedal Pulses Palpable (Nohemy Walker) Neurologic Neuro Exam: Alert, Awake, Oriented, Speech Clear, Moving All Extremities ( Nohemy Walker) Psychiatric Psych Exam: Appropriate Responses (Nohemy Walker) Assessment/Plan Discussed Condition With: Patient Assessment Summary: TAMMY/Acute Renal Failure Problem List: (1) Acute kidney failure Plan: in a patient with no labs for comparison TAMMY due to intravascular volume depletion and sepsis with hypotension; may have progressed to ATN renal function improving daily, he has adequate urine output 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, no indication of surgical removal continue to replace potassium and phosphorus continue IVF of D5W until he passes swallow evaluation follow renal function and electrolytes daily (2) Severe anemia Plan: Hb improved, Hemoccult positive, see below awaiting EGD/colonoscopy by GI also microcytic anemia, slight iron deficiency avoid Venofer in light of sepsis (3) Septic shock Plan: ID following 4/4 blood cultures are bottles positive, sputum culture also positive he is on vancomycin and Zosyn repeat blood cultures are negative to date source suspected Pneumonia , however he may have septic joint, s/p aspiration, may require surgical I&D with arthrotomy by ortho, they are following legionella antigen in urine is negative (4) Elevated troponin Plan: possibly due to demand ischemia from A fib RVR, sepsis cardiology has evaluated, who recommend treat underlying cause (5) Acute respiratory failure Plan: extubated, now on nasal cannula (6) Hypernatremia Plan: persistent continue D5W and free water with tube feeding given a dose of Diuril (7) GI (gastrointestinal bleed) Plan: GI to consult on Protonix gtt follow Hb (8) Atrial fibrillation with rapid ventricular response Plan: previously in A fib , still on amiodarone gtt but did convert to sinus rhythm yesterday monitor for recurrence (Nohemy Walker) Plan patient was seen and examined. Agree with above assessment and plan. (Charly Rose MD) Problem Qualifiers (1) Acute kidney failure: Qualified Code: N17.9 - Acute renal failure, unspecified acute renal failure type (2) Acute respiratory failure: Qualified Code: J96.00 - Acute respiratory failure, unspecified whether with hypoxia or hypercapnia Nohemy Walker Jul 29, 2016 11:41 Charly Rose MD Jul 29, 2016 21:07
--- NOTE | 2016-07-29 12:40 | HHI.GIFU ---
Subjective Remarks Pt resting in bed, in no apparent distress, about to have swallow eval. Denies pain, n/v. (Miriam Willett) Objective Vitals I&O Vital Signs Date Time Temp Pulse Resp B/P Pulse Ox O2 Delivery O2 Flow Rate FiO2 07/29/16 10:00 78 07/29/16 09:47 95 Nasal Cannula 2.00 07/29/16 08:00 78 07/29/16 08:00 99.1 85 22 124/59 98 07/29/16 07:55 98.3 81 22 116/73 98 07/29/16 06:00 78 07/29/16 04:00 77 07/29/16 04:00 98.2 93 25 133/60 48 07/29/16 02:00 82 07/29/16 00:00 98.2 82 25 126/61 94 07/29/16 00:00 83 07/28/16 22:00 84 07/28/16 20:32 100 Nasal Cannula 1.00 07/28/16 20:00 85 07/28/16 20:00 99.1 85 22 124/59 98 07/28/16 18:00 88 07/28/16 18:00 88 18 114/56 91 07/28/16 17:00 107 22 123/74 94 07/28/16 16:00 98.2 92 34 127/66 07/28/16 16:00 92 07/28/16 15:00 85 31 110/53 95 07/28/16 14:00 83 46 104/77 97 07/28/16 14:00 86 07/28/16 13:00 90 19 130/59 96 I/O 07/28/16 07/28/16 07/28/16 07/29/16 07/29/16 07/29/16 07:00 15:00 23:00 07:00 15:00 23:00 Intake Total 930 ml 1222 ml 2958 ml 2884 ml Output Total 300 ml 400 ml 425 ml 450 ml Balance 630 ml 822 ml 2533 ml 2434 ml Intake Oral 0 ml 0 ml IV Total 680 ml 1022 ml 956 ml 1010 ml Tube Feeding 0 ml 0 ml 0 ml Other 250 ml 200 ml 2002 ml 1874 ml Output Urine Total 300 ml 400 ml 425 ml 450 ml Tube Feeding Residual Discard 0 ml # Bowel Movements 0 0 0 3 Laboratory Laboratory Tests Test 07/28/16 07/28/16 07/28/16 07/29/16 12:40 15:31 21:10 04:22 Synovial Fluid Color YELLOW Synovial Fluid Appearance SLIGHT Synovial Fluid WBC 85842 Synovial Fluid RBC 330 Synovial Fluid Neutrophils 77 Synovial Fluid Lymphocytes 0 Synovial Fluid Histiocytes 15 Synovial Fluid Synovial 8 Lining Cell Synovial Fluid Crystals POS - CALCIUM PYRO Blood Type O POSITIVE Crossmatch Leukocyte-Reduced Red Blood Cells Blood Bank Comment Hemoglobin 9.0 9.4 Hematocrit 28.6 29.2 Potassium Level 2.8 3.3 White Blood Count 21.2 Red Blood Count 3.72 Mean Corpuscular Volume 78.6 Mean Corpuscular Hemoglobin 25.3 Mean Corpuscular Hemoglobin 32.2 Concent Red Cell Distribution Width 23.1 Platelet Count 189 Mean Platelet Volume 9.3 Neutrophils (%) (Auto) 96.6 Lymphocytes (%) (Auto) 2.2 Monocytes (%) (Auto) 1.1 Eosinophils (%) (Auto) 0.0 Basophils (%) (Auto) 0.1 Neutrophils # (Auto) 20.5 Lymphocytes # (Auto) 0.5 Monocytes # (Auto) 0.2 Eosinophils # (Auto) 0.0 Basophils # (Auto) 0.0 CBC Comment AUTO DIFF Differential Comment AUTO DIFF CONFIRMED Ovalocytes 1+ Chhaya Cells 1+ Acanthocytes 1+ Sodium Level 153 Chloride Level 117 Carbon Dioxide Level 22.5 Anion Gap 14 Blood Urea Nitrogen 52 Creatinine 2.10 Estimat Glomerular Filtration 31 Rate Random Glucose 121 Calcium Level 8.6 Random Vancomycin Level 15.7 Date/Time Procedure Status Source Growth 07/28/16 12:40 Gram Stain - Final Resulted Wound Knee 07/28/16 12:40 Wound Culture - Preliminary Resulted Wound Knee NO GROWTH IN 24 HOURS. 07/27/16 16:11 Aerobic Blood Culture - Preliminary Resulted Blood Peripheral NO GROWTH IN 2 DAYS 07/27/16 16:11 Anaerobic Blood Culture - Preliminary Resulted Blood Peripheral NO GROWTH IN 2 DAYS 07/27/16 13:00 Legionella Antigen - Final Complete Urine Catheterized Urine PRESUMPTIVE NEGATIVE FOR LEGIONELLA P... 07/27/16 13:00 Streptococcus pneumoniae Antigen (M - Final Complete Urine Catheterized Urine PRESUMPTIVE NEGATIVE FOR STREPTOCOCCU... 07/26/16 15:40 Aerobic Blood Culture - Final Complete Blood Peripheral Streptococcus Pneumoniae 07/26/16 15:40 Anaerobic Blood Culture - Final Complete Streptococcus Pneumoniae 07/26/16 15:39 Urine Culture - Final Complete Urine Catheterized Urine NO GROWTH IN 48 HOURS. Imaging Last Impressions Lower Extremity Ultrasound 07/28/16 0000 Signed Impressions: Service Date/Time: Thursday, July 28, 2016 21:45 - CONCLUSION: Nonocclusive thrombus in the right leg. David Montes MD Chest X-Ray 07/28/16 0000 Signed Impressions: Service Date/Time: Thursday, July 28, 2016 09:35 - CONCLUSION: 1. The side port of the gastric tube is approximately 5 cm above the level of the diaphragm and needs to be advanced. 2. Persistent dense consolidation left lower lobe. Hector Crawford MD Knee X-Ray 07/27/[id number] Signed Impressions: Service Date/Time: Wednesday, July 27, 2016 21:30 - CONCLUSION: Intact left knee. Mild osteoarthritis, nonspecific joint effusion and suspected distal quadriceps tendinosis. Josue Dimas MD Hip X-Ray [id number] Signed Impressions: Service Date/Time: Wednesday, July 27, 2016 21:24 - CONCLUSION: No acute bony abnormality demonstrated. No fracture, subluxation or significant joint space narrowing of the left hip. Josue Dimas MD Head CT 07/26/16 1534 Signed Impressions: Service Date/Time: Tuesday, July 26, 2016 16:47 - CONCLUSION: 1. 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 2. No acute intracranial abnormality. David Montes MD Chest CT 07/26/16 0000 Signed Impressions: Service Date/Time: Tuesday, July 26, 2016 16:52 - CONCLUSION: 1. Mucous plugging with opacification of left lower lobe bronchi likely bronchitis/infection. 2. Right lung clear. David Montes MD Abdomen/Pelvis CT 07/26/16 0000 Signed Impressions: Service Date/Time: Tuesday, July 26, 2016 16:52 - CONCLUSION: 1. Infrarenal abdominal aortic aneurysm measures 3.4 cm. Aneurysmal dilatation right common iliac artery. 2. 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 3. Prominence of the left adrenal gland. David Montes MD Physical Exam HEENT: EOMI; normocephalic; atraumatic; no jaundice. CHEST: CTA CARDIAC: RRR ABDOMEN: Soft, nondistended, nontender; no hepatosplenomegaly; bowel sounds are present in all four quadrants. EXTREMITIES: No clubbing, cyanosis, edema right hand, BLE SKIN: Normal; no rash; no jaundice. SHOE LAY OUT PLANNER: alert, mildly confused. (Miriam Willett) Assessment and Plan Plan ASSESSMENT - anemia - hgb 4.4 on admission, s/p PRBC. 9.4, stable. No signs bleeding. Pt denies melena, hematemesis, or other bleeding. He was just extubated and seems mildly confused and does not answer all questions. WAs to have EGD/colonoscopy today but developed AF, hypokalemia. Will try for tomorrow if pt stable. Reportedly his roommate is going to come to paperwork to be surrogate and can sign his consents. Needs to be done prior to starting anticoag for DVTs. PLAN - EGD/colonoscopy tomorrow - obtain consents - clears today - NPO after midnight - monitor HH - transfuse PRN - notify GI of active bleeding This pt seen by myself and Dr Gastelum and this note is written on his behalf ( Miriam Willett) Physician Comments Seen and examined,plan for EGD and Colonoscopy in AM Further recommendations to follow. (Santos Gastelum MD) Miriam Willett Jul 29, 2016 12:40 Santos Gastelum MD Jul 29, 2016 14:31
--- NOTE | 2016-07-29 14:29 | PD.ORT.PN ---
Subjective Subjective Remarks Patient awake and verbal today. Patient restrained. Patient reports mild to moderate pain to the left knee and left calf. I spoke with the patient's critical care physician and informed him of the diagnosis of gout in the left knee. Patient has not been started on medication. Dr. Garcia stated he would address this. He informed me that the patient is not on blood thinners for the DVT in the left calf due to a planned procedure scheduled for tomorrow. Patient denies SOB, CP, Fevers/Chills, Tingling or Numbness in the LLE. Objective Vitals Vital Signs Date Time Temp Pulse Resp B/P Pulse Ox O2 Delivery O2 Flow Rate FiO2 07/29/16 14:00 78 07/29/16 12:00 99.3 92 24 110/51 98 07/29/16 12:00 78 07/29/16 10:00 78 07/29/16 09:47 95 Nasal Cannula 2.00 07/29/16 08:00 78 07/29/16 08:00 99.1 85 22 124/59 98 07/29/16 07:55 98.3 81 22 116/73 98 07/29/16 06:00 78 07/29/16 04:00 77 07/29/16 04:00 98.2 93 25 133/60 48 07/29/16 02:00 82 07/29/16 00:00 98.2 82 25 126/61 94 07/29/16 00:00 83 07/28/16 22:00 84 07/28/16 20:32 100 Nasal Cannula 1.00 07/28/16 20:00 85 07/28/16 20:00 99.1 85 22 124/59 98 07/28/16 18:00 88 07/28/16 18:00 88 18 114/56 91 07/28/16 17:00 107 22 123/74 94 07/28/16 16:00 98.2 92 34 127/66 07/28/16 16:00 92 07/28/16 15:00 85 31 110/53 95 I/O 07/28/16 07/28/16 07/28/16 07/29/16 07/29/16 07/29/16 07:00 15:00 23:00 07:00 15:00 23:00 Intake Total 930 ml 1222 ml 2958 ml 2884 ml 1152 ml Output Total 300 ml 400 ml 425 ml 450 ml 1300 ml Balance 630 ml 822 ml 2533 ml 2434 ml -148 ml Intake Oral 0 ml 0 ml IV Total 680 ml 1022 ml 956 ml 1010 ml 1152 ml Tube Feeding 0 ml 0 ml 0 ml Other 250 ml 200 ml 2002 ml 1874 ml Output Urine Total 300 ml 400 ml 425 ml 450 ml 950 ml Stool Total 350 ml Tube Feeding Residual Discard 0 ml # Bowel Movements 0 0 0 3 Result Diagram: 07/29/1642107/29/16421 Objective Remarks Last 48 hours Impressions Lower Extremity Ultrasound 07/28/16 0000 Signed Impressions: Service Date/Time: Thursday, July 28, 2016 21:45 - CONCLUSION: Nonocclusive thrombus in the right leg. David Montes MD Lower Extremity Ultrasound 07/28/16 0000 Signed Impressions: Service Date/Time: Thursday, July 28, 2016 13:42 - CONCLUSION: The exam is positive for DVT within the left lower extremity. Iftikhar Arana MD Chest X-Ray 07/28/16 0000 Signed Impressions: Service Date/Time: Thursday, July 28, 2016 09:35 - CONCLUSION: 1. The side port of the gastric tube is approximately 5 cm above the level of the diaphragm and needs to be advanced. 2. Persistent dense consolidation left lower lobe. Hector Crawford MD Knee X-Ray 07/27/161646 Signed Impressions: Service Date/Time: Wednesday, July 27, 2016 21:30 - CONCLUSION: Intact left knee. Mild osteoarthritis, nonspecific joint effusion and suspected distal quadriceps tendinosis. Josue Dimas MD Hip X-Ray 07/27/161646 Signed Impressions: Service Date/Time: Wednesday, July 27, 2016 21:24 - CONCLUSION: No acute bony abnormality demonstrated. No fracture, subluxation or significant joint space narrowing of the left hip. Josue Dimas MD Patient able to move the left knee better today. Patient has small to moderate joint effusion to the left knee. Patient has swelling and tenderness to the left calf. EHL/TA/G intact. 2+ pedal pulse. No redness or s/s of infection to the left knee. Left knee aspiration negative for infection, but positive for Gout. Assessment & Plan Assessment and Plan Left knee Gout per knee aspirate Left LE DVT per US Patient's knee aspiration results are positive for gout. Patient does not have infection in the left knee and will not require surgery. Patient to be managed conservatively. Patient to start medication per Dr. Garcia for gout. Dr. Garcia aware of + US for nonocclusive DVT in RLE and DVT in left LE. Patient's anticoagulants on hold due to planned procedure per Dr. Garcia. Patient will need anticoagulants after procedure. Ice to the left knee PRN swelling and pain. Pain medication for pain management. Ortho signing off on patient at this time. Iftikhar Little Jul 29, 2016 14:29
[2016-07-29] MEDS: AMIODARONE 200 MG TAB PO SCH ×2 (14:39→20:20)
[2016-07-29] MEDS ORDERED: COLCHICINE 0.6 MG TAB PO ONE (17:00)
--- NOTE | 2016-07-29 17:12 | HHI.CCPN ---
Subjective Remarks/Hospital Course Patient is a 71-year-old male with only known past medical history of tobacco abuse and a possible history of PE in 2011 aas per emergency department notes was brought to the [facility] ED for altered mental status. Apparently patient's roommate found him unresponsive in the morning and after he came back from work patient was still in the same condition not responsive. EMS was called patient was found hypotensive, hypoxemic and given a liter bolus which improved the blood pressure. In the emergency department patient had a GCS of 8. He had a fever 101.1 tachycardic and heart rate 150s. Patient was given additional fluid boluses and was intubated by Dr. Oliver for airway protection. Chest x-ray was unremarkable lab work showed a hemoglobin of 4.1 white count of 13, lactic acid of 6.2 BUN of 16 creatinine of 2.7. For possible sepsis he was given vancomycin and Zosyn. A total of 4 units of PRBC had been ordered and GI consult had been requested. History of Hemoccult was positive. Troponin was slightly elevated could be demand ischemia in renal failure I evaluated the patient in the ED. He appears chronically ill, dishevelled. CT of the head and chest abdomen pelvis is pending at this time. Dr.Al Gastelum with GI had been consulted. IV Protonix gtt. Start Cardizem bolus and drip for A fib with RVR 07/27 Patient is sedated with Versed , fentanyl and intubated. On Protonix drip and Cardizem drip 2mg/hr. Afebrile. Hgb 8.5 this morning from 4.4 yesterday. s/ p transfusion 4units PRBC. 07/28 Patient remains intubated and sedated with fentanyl. Remains on Protonix drip. Hgb 8.0 this morning, He was placed on Amio drip overnight for Afib with RVR . On Bicarb drip. 07/29: patient extubated yesterday and from pulmonary standpoint, doing much better. however, remains on protonix drip and plan for scope today or tomorrow. hgb stable, but wbc significantly elevated this AM. Hypernatremia/ hyperchloremia/hypokalemia persists despite aggressive free water and K replacements. Cr slightly improved. Cultures NGTD. knee aspirate consistent with acute gout flair. Objective Vital Signs Date Time Temp Pulse Resp B/P Pulse Ox O2 Delivery O2 Flow Rate FiO2 07/29/16 14:00 78 07/29/16 12:00 99.3 24 110/51 98 07/29/16 09:47 Nasal Cannula 2.00 07/28/16 08:00 35 Intake and Output 07/28/16 07/28/16 07/28/16 07:59 15:59 23:59 Intake Total 930 ml 1222 ml 2958 ml Output Total 300 ml 400 ml 425 ml Balance 630 ml 822 ml 2533 ml Result Diagram: 07/29/16 0422 07/29/16 0422 Other Results Microbiology Date/Time Procedure Status Source Growth 07/27/16 13:00 Legionella Antigen - Final Complete Urine Catheterized Urine PRESUMPTIVE NEGATIVE FOR LEGIONELLA P... 07/27/16 13:00 Streptococcus pneumoniae Antigen (M - Final Complete Urine Catheterized Urine PRESUMPTIVE NEGATIVE FOR STREPTOCOCCU... Imaging Last Impressions Knee X-Ray 07/27/16 1647 Signed Impressions: Service Date/Time: Wednesday, July 27, 2016 21:30 - CONCLUSION: Intact left knee. Mild osteoarthritis, nonspecific joint effusion and suspected distal quadriceps tendinosis. Josue Dimas MD Hip X-Ray 07/27/16 1647 Signed Impressions: Service Date/Time: Wednesday, July 27, 2016 21:24 - CONCLUSION: No acute bony abnormality demonstrated. No fracture, subluxation or significant joint space narrowing of the left hip. Josue Dimas MD Chest X-Ray 07/27/16 0000 Signed Impressions: Service Date/Time: Wednesday, July 27, 2016 03:16 - CONCLUSION: New significant consolidation left lower lobe possible left lower lobe collapse. Right lung is clear Pritesh Horan MD Head CT 07/26/16 1534 Signed Impressions: Service Date/Time: Tuesday, July 26, 2016 16:47 - CONCLUSION: 1. 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 2. No acute intracranial abnormality. David Montes MD Abdomen/Pelvis CT 07/26/16 0000 Signed Impressions: Service Date/Time: Tuesday, July 26, 2016 16:52 - CONCLUSION: 1. Infrarenal abdominal aortic aneurysm measures 3.4 cm. Aneurysmal dilatation right common iliac artery. 2. 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 3. Prominence of the left adrenal gland. David Montes MD Objective Remarks P/E GENERAL: Chronically ill-appearing disheveled male, sitting in bed. SKIN: Warm and dry. HEAD: Atraumatic. Normocephalic. EYES: Pupils equal and round. ENT: Oral mucosa is moist NECK: Trachea midline. No JVD. CARDIOVASCULAR: RRR, nl S1, S2. RESPIRATORY: Bilateral equal air entry GASTROINTESTINAL: Abdomen soft, non-tender, nondistended. MUSCULOSKELETAL: No obvious deformities. No clubbing. No cyanosis. No edema. NEUROLOGICAL: RASS 0. slightly confused. follows commands. A/P Assessment and Plan NEURO: Acute encephalopathy most likely metabolic- resolving. Previous CVA with encephalomalacia -CT head shows old infarcts without any acute findings, -EEG 07/27: Diffuse Encephalopathy -UDS + Benzos, cannabinoids. -clinically improving. avoid benzos. RESP: Acute hypoxemic respiratory failure- resolving. Acute COPD exacerbation Tobacco abuse -wean o2 by NC for goal spo2 > 92% -DuoNeb every 6 hours and when necessary -Taper IV steroids. - aggressive pulmonary toilet. - oob to chair - pt/ot. CV: Septic and hypovolemic shock - resolved. Atrial fibrillation with RVR - resolving. Lactic acidosis ..resolved Elevated trop -Monitor HR and BP keep MAP>65mmHg - echo showed EF 50-55%, no RWMA, cards is following- Dr. Banda - elmira downtrending. -Patient is not a candidate for ASA or AC due to GI bleed. -change to PO amio. GI: GI bleed 3.4 cm infrarenal AAA -s/p Transfuse 4U PRBC.07/26 -GI is following- Dr. Callahan. plan for endoscopy tomorrow. -Continue with tube feeds- Nepro @40ml/hr -Continue IV Protonix infusion -Coace and Senna for bowel regimen. -No intervention needed for AAA at this time : Acute kidney injury ..improving Hypernatremia Hypokalemia Hyperchloremia -Monitor renal function , I/O's, electrolytes replacement as needed. Avoid nephrotoxins -Continue IVF to D5W @75ml/hr, monitor sodium level. ;- Dr. Rose -Continue Free water 300ml Q6. Monitor sodium level. -Cr: 2.42-->2.34-->2.[address] abd/pelvis: absence right kidney, no hydro on left. ID: Sepsis Gram positive bacteremia -Continue Zosyn and vancomycin. Monitor for signs of infections ( Fever, WBC) ID is following -07/26 BC : GPC, stre pneumonia 4 bottles -07/27 Blood cultures: NGTD -Strep pneumonia and Legionella urinary Ag negative. HEME: Severe anemia requiring transfusion GI bleed Gout DVT -s/p Transfusion 4 units PRBC 07/26 -Monitor CBC, CMP, coags -colchicine 1.2mg po x 1. -u/s with evidence of DVT. However, patient unable to be anticoagulated at this time given his active GI bleeding. will need anticoagulation at some point. ENDO: -Electrolyte replacement per protocol, place on medium SSI for glycemic control; -ORTHO - Seen by Ortho s/p left Knee aspiration, consistent with acute gout flair. PROPH: -Bilateral lower extremity SCDs/ANGELITO. Protonix gtt. chemical DVT prophylaxis contraindicated due to GI bleed - Doppler US LLE showed DVT LLE. Patient is at high risk of bleeding from anticoagulation given severe anemia with Hgb 4.4 on arrival. - Will likley need EGD and colonoscopy if there is no signs of bleeding then will consider full anticoagulation. Discussed with Hematology-Dr. Buitrago and GI- Dr. Gastelum LINES: D -Utilize peripheral IVs, Dispo: will consult hospitalist service. clinically improving from a cardiopulmonary standpoint. multiple ongoing medical problems, but does not require intensive care unit. Matt Martinez MD Jul 29, 2016 17:12
[2016-07-29] MEDS: RESP: ALBUTEROL 2.5 MG/3 ML NEB (PRN) INH (22:51)
[2016-07-29 22:58] LABS: BLOOD GAS BASE EXCESS -4.3 mmol/L (-2-2); BLOOD GAS HCO3 18 mmol/L (22-26); BLOOD GAS METHEMOGLOBIN 1.2 % (0-2); BLOOD GAS O2 HGB SATURATION 82 % (90-100); BLOOD GAS OXYGEN CONTENT 10.9 Vol % (12.0-20.0); BLOOD GAS PCO2 23 mmHg (38-42); BLOOD GAS PO2 50 mmHg (61-120); BLOOD GAS TOTAL HGB 9.4 G/DL (12.0-16.0); TEMP CORR TO 98.6
[2016-07-29 23:00] LABS: CRITICAL VALUE YES; DRAW SITE RT RADIAL; FIO2 50 %; NUMBER OF ARTERIAL PUNCTURES 1; OXYGEN DEVICE Venti Mask; STAT YES; ULNAR PULSE PRESENT
--- NOTE | 2016-07-29 23:28 | RADRPT ---
EXAM DATE/TIME: 07/29/2016 22:58 [facility] COMPARISON: No previous studies available for comparison. INDICATIONS : Short of breath. MEDICAL HISTORY : None. SURGICAL HISTORY : None. ENCOUNTER: Initial ACUITY: 3 days PAIN SCORE: 0/10 LOCATION: Bilateral chest FINDINGS: A single view of the chest demonstrates patchy infiltrates throughout the lungs clearly worse than on the previous days film. Nasogastric tube in good position The cardiomediastinal contours are unrema rkable. Osseous structures are intact. CONCLUSION: Airspace disease throughout the lungs clearly worse than on the previous study Pritesh Horan MD on July 29, 2016 at 23:26 Board Certified Radiologist. This report was verified electronically.
[2016-07-30] VITALS (17 sets, daily range): BP systolic 107–125; BP diastolic 51–57; PULSE 71–84; RESP 22–29; TEMP 97.4–98.6; O2SAT 92–98
[2016-07-30] MEDS: FREE WATER G-TUBE SCH
[2016-07-30] MEDS: DEXTROSE 5% IN WATE 1000ML INJ 1,000 ML IV SCH (00:03)
[2016-07-30] MEDS: PANTOPRAZOLE INJ 80 MG in SODIUM CHLORIDE 0.9% INJ 100 ML IV SCH ×3 (00:04→20:22)
[2016-07-30] MEDS ORDERED: CHLOROTHIAZIDE SOD 500 MG VIAL IV ONE ×2 (00:15→14:00)
[2016-07-30 02:06] LABS: HEMATOCRIT 33.9 % (39.0-51.0); MEAN CELL VOLUME 77.1 FL (80.0-100.0); MEAN CORPUSCULAR HEMOGLOBIN 25.3 PG (27.0-34.0); MEAN CORPUSCULAR HGB CONC 32.8 % (32.0-36.0); PLATELET COUNT 179 TH/MM3 (150-450); RED CELL DISTRIBUTION WIDTH 25.5 % (11.6-17.2); WHITE BLOOD COUNT 13.9 TH/MM3 (4.0-11.0)
[2016-07-30 02:13] LABS: REVIEW FLAG FINAL
[2016-07-30 02:27] LABS: ALT (GPT) 17 U/L (12-78); ANION GAP 13 MEQ/L (5-15); AST (GOT) 24 U/L (15-37); BICARBONATE 22.2 MEQ/L (21.0-32.0); BLOOD UREA NITROGEN 45 MG/DL (7-18); CHLORIDE 110 MEQ/L (98-107); GLOMERULAR FILTRATION RATE 35 ML/MIN (>89); POTASSIUM 3.1 MEQ/L (3.5-5.1); SODIUM (NA) 145 MEQ/L (136-145)
[2016-07-30 02:29] LABS: ALKALINE PHOSPHATASE 25 U/L (45-117); TOTAL BILIRUBIN ADULT 1.7 MG/DL (0.2-1.0)
[2016-07-30] MEDS: INSULIN NovoLIN REGULAR SUPPLEMENTAL SCALE SQ SCH ×4 (03:45→21:45)
[2016-07-30] MEDS: CHLORHEXIDINE GLUCONATE 2 % 1 PACK (2 CLOTHS) TOP SCH (04:00)
[2016-07-30] MEDS ORDERED: BUMETANIDE INJ 1 MG/4 ML VIAL IV PUSH ONE ×2 (04:00→07:15)
[2016-07-30] MEDS: RESP: ALBUTEROL 2.5 MG/IPRATROPIUM 0.5 MG NEB (SCH) NEB ×2 (04:10→10:20)
[2016-07-30] MEDS: PIPERACIL-TAZO 3.375 GM PREMIX 50 ML IV SCH ×2 (04:11→09:11)
[2016-07-30] MEDS: POTASSIUM CHLOR 10 MEQ PREMIX 100 ML IV SCH ×6 (04:22→09:11)
[2016-07-30] MEDS: methylPREDNISolone SOD SUCC 40 MG/1 ML VIAL IV PUSH SCH ×2 (07:54→20:22)
[2016-07-30] MEDS: AMIODARONE 200 MG TAB PO SCH ×2 (07:56→20:22)
[2016-07-30] MEDS: CHLORHEXIDINE 0.12% (ORAL KIT) 15 ML CUP MT SCH ×2 (07:57→20:00)
[2016-07-30] MEDS: DOCUSATE SODIUM 100 MG/10 ML UDC PO SCH ×2 (07:57→20:22)
[2016-07-30] MEDS: SENNOSIDES SYRUP 8.8 MG/5 ML CUP PO SCH (07:57)
[2016-07-30] MEDS ORDERED: POTASSIUM CHLORIDE INJ 20 MEQ in DEXTROSE 5% IN WATE 1000ML INJ 1,000 ML IV SCH ×2 (11:00)
--- NOTE | 2016-07-30 11:54 | HHI.NPPN ---
Subjective General Problems: Hypotension, Mebatolic Acidosis Renal Failure: Acute Interval History Failed swallow, he is NPO. REnal function and sodium are better. Due for EGD/ colonoscopy today. He has some edema. (Nohemy Walker) Review of Systems General Constitutional: Fatigue (Nohemy Walker) Musculoskeletal MS: Pain/Stiffness, Swelling in Joint MS Remarks left knee (Nohemy Walker) Objective Data Data 07/29/16 07/30/16 19:00 07:00 Intake Total 1152 ml 2048 ml Output Total 1300 ml 1850 ml Balance -148 ml 198 ml IV Total 1152 ml 1448 ml Tube Irrigant 600 ml Output Urine Total 950 ml 1850 ml Stool Total 350 ml 0 ml Vital Signs Date Time Temp Pulse Resp B/P Pulse Ox O2 Delivery O2 Flow Rate FiO2 07/30/16 10:21 96 Nasal Cannula 4.00 07/30/16 10:00 77 07/30/16 08:00 98.3 74 26 125/55 95 07/30/16 08:00 96 Nasal Cannula 4.00 07/30/16 08:00 75 07/30/16 06:00 78 07/30/16 04:11 96 40 07/30/16 04:00 80 07/30/16 04:00 98.3 80 27 118/57 96 07/30/16 02:00 81 07/30/16 02:00 97 Bi-Pap 35 07/30/16 01:50 96 40 07/30/16 00:30 95 Bi-Pap 100 07/30/16 00:20 97 40 07/30/16 00:00 98.1 84 29 112/56 98 07/30/16 00:00 88 Venturi Mask 50 07/30/16 00:00 84 07/29/16 23:20 94 50 07/29/16 22:00 93 07/29/16 21:13 94 Nasal Cannula 4.00 07/29/16 20:00 97.7 90 34 124/60 91 07/29/16 20:00 90 07/29/16 18:00 81 07/29/16 16:00 81 07/29/16 16:00 98.8 93 22 121/68 98 07/29/16 14:00 78 07/29/16 12:00 99.3 92 24 110/51 98 07/29/16 12:00 78 (Nohemy Walker) -: 07/30/16 0130 07/30/16 0130 Microbiology 07/30/16 Aerobic Blood Culture, Received Pending 07/30/16 Anaerobic Blood Culture, Received Pending 07/30/16 Aerobic Blood Culture, Received Pending 07/30/16 Anaerobic Blood Culture, Received Pending Imaging Last 72 hours Impressions Chest X-Ray 07/29/16 0000 Signed Impressions: Service Date/Time: Friday, July 29, 2016 22:58 - CONCLUSION: Airspace disease throughout the lungs clearly worse than on the previous study Pritesh Horan MD Lower Extremity Ultrasound 07/28/16 0000 Signed Impressions: Service Date/Time: Thursday, July 28, 2016 21:45 - CONCLUSION: Nonocclusive thrombus in the right leg. David Montes MD Lower Extremity Ultrasound 07/28/16 0000 Signed Impressions: Service Date/Time: Thursday, July 28, 2016 13:42 - CONCLUSION: The exam is positive for DVT within the left lower extremity. Iftikhar Arana MD Chest X-Ray 07/28/16 0000 Signed Impressions: Service Date/Time: Thursday, July 28, 2016 09:35 - CONCLUSION: 1. The side port of the gastric tube is approximately 5 cm above the level of the diaphragm and needs to be advanced. 2. Persistent dense consolidation left lower lobe. Hector Crawford MD Knee X-Ray 07/27/161646 Signed Impressions: Service Date/Time: Wednesday, July 27, 2016 21:30 - CONCLUSION: Intact left knee. Mild osteoarthritis, nonspecific joint effusion and suspected distal quadriceps tendinosis. Josue Dimas MD Hip X-Ray 07/27/161646 Signed Impressions: Service Date/Time: Wednesday, July 27, 2016 21:24 - CONCLUSION: No acute bony abnormality demonstrated. No fracture, subluxation or significant joint space narrowing of the left hip. Josue Dimas MD Tubes & Lines: [place] Drip Comment Protonix (Nohemy Walker) Physical Exam General Appearance: Well Developed, No Acute Distress, Comfortable, Malnourished Appearance Remarks extubated, awake, answers questions (Nohemy Walker) Throat Throat Exam: Oral Mucosa [place] & Moist (Nohemy Walker) Pulmonary Resp Exam: Breath Sounds Equal, Crackles, Rhonchi, Sputum Resp Remarks coughing, course throughout (Nohemy Walker) Cardiology CV Exam: Good Perfusion, Irregular, Arrhythmia (Nohemy Walker) Gastrointestinal/Abdomen GI Exam: Soft, Non-Tender, Bowel Sounds Present GI Remarks flat abdomen (Nohemy Walker) Musculoskeletal MS Exam: Joints Intact, Normal Tone MS Remarks pain in left leg with palpation (Nohemy Walker) Integumentary Skin Exam: Clear, Warm, Dry, Intact (Nohemy Walker) Extremeties Extremities Exam: Pedal Pulses Palpable, Moderate Edema, Pitting Edema ( Nohemy Walker) Neurologic Neuro Exam: Alert, Awake, Oriented, Speech Clear, Moving All Extremities ( Nohemy Walker) Psychiatric Psych Exam: Appropriate Responses (Nohemy Walker) Assessment/Plan Discussed Condition With: Patient Assessment Summary: TAMMY/Acute Renal Failure Problem List: (1) Acute kidney failure Plan: in a patient with no labs for comparison TAMMY due to intravascular volume depletion and sepsis with hypotension; may have progressed to ATN renal function improving daily good urine output 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, no indication of surgical removal continue to replace potassium continue IVF of D5W as he is NPO follow renal function and electrolytes daily (2) Severe anemia Plan: Hb improved, Hemoccult positive, see below awaiting EGD/colonoscopy by GI today also microcytic anemia, slight iron deficiency avoid Venofer in light of sepsis (3) Septic shock Plan: ID following / blood cultures are bottles positive, sputum culture also positive he is on vancomycin and Zosyn also has gout in left knee repeat blood cultures are negative to date source suspected Pneumonia , however he may have septic joint, s/p aspiration, may require surgical I&D with arthrotomy by ortho, they are following legionella antigen in urine is negative (4) Elevated troponin Plan: possibly due to demand ischemia from A fib RVR, sepsis cardiology has evaluated, who recommend treat underlying cause (5) Acute respiratory failure Plan: extubated, now on nasal cannula has not passed swallow eval (6) Hypernatremia Plan: improved continue D5W give another dose of Diuril (7) GI (gastrointestinal bleed) Plan: GI following on Protonix gtt follow Hb (8) Atrial fibrillation with rapid ventricular response Plan: previously in A fib , off amiodarone gtt but did convert to sinus rhythm monitor for recurrence (Nohemy Walker) Plan patient was seen and examined. Renal function is better. On D5W. Avoid nephrotoxic agents. (Charly Rose MD) Problem Qualifiers (1) Acute kidney failure: Qualified Code: N17.9 - Acute renal failure, unspecified acute renal failure type (2) Acute respiratory failure: Qualified Code: J96.00 - Acute respiratory failure, unspecified whether with hypoxia or hypercapnia Nohemy Walker Jul 30, 2016 11:54 Charly Rose MD Jul 31, 2016 16:47
[2016-07-30] MEDS ORDERED: PHENYLEPH/NS 1000 MCG/10 ML SYR IV ONE (12:00)
[2016-07-30] MEDS: D5W + KCL 20 MEQ INJ 1,000 ML IV SCH (12:24)
--- NOTE | 2016-07-30 13:52 | HHI.IDPN ---
Subjective Subjective Remarks Patient is a 71-year-old male, brought into the hospital after he was found unresponsive. He apparently has a roommate and when he left the morning patient was question asleep or unresponsive. His ROM A went to work and when he came back patient was found in the same position in same location. EMS was called and patient was found to be hypotensive and hypoxic. Patient was given fluid resuscitation and brought into the emergency room. He ended up getting intubated in the emergency room. In the ER he was febrile, and tachycardic. He was given more fluid resuscitation. He was found to have a hemoglobin of 4.4. Creatinine was 2.7, and lactic acid was 6.2. His troponin was elevated. He was in atrial fibrillation with RVR. He was placed on Cardizem and has converted to normal sinus rhythm. Patient remains on the vent. His blood pressure is okay. Blood cultures done in the ED is now reported as growing gram -positive cocci. CT chest with opacity L base. CT A/P showed infrarenal aneurysm, and one kidney seen L. 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 His temps are better. WBC is down to normal. Notes reviewed D/W RN On nasal O2 - required BIPAP overnight Being diuresed Going for endoscopy today Has a very moist and weak cough On steroids for pseudogout G/S L knee fluid no organism seen, C/S negative BC with PCN sensitive pneumococcus Sputum with H influenza Leg[place] and Pneumo Ag negative Echo with mod AI and mild MR, thickness of valves normal Has LLE DVT and non-occlusive thrombus R leg Creatinine better WBC decreasing No new (+) BC CXR / - worsening infiltrates BNP >1000 Antibiotics Vanco Zosyn Past Medical History PE Allergies: Coded Allergies: No Known Allergies (Unverified , 07/26/16) Objective . Vital Signs Date Time Temp Pulse Resp B/P Pulse Ox O2 Delivery O2 Flow Rate FiO2 07/30/16 10:21 96 Nasal Cannula 4.00 07/30/16 10:00 77 07/30/16 08:00 98.3 74 26 125/55 95 07/30/16 08:00 96 Nasal Cannula 4.00 07/30/16 08:00 75 07/30/16 06:00 78 07/30/16 04:11 96 40 07/30/16 04:00 80 07/30/16 04:00 98.3 80 27 118/57 96 07/30/16 02:00 81 07/30/16 02:00 97 Bi-Pap 35 07/30/16 01:50 96 40 07/30/16 00:30 95 Bi-Pap 100 07/30/16 00:20 97 40 07/30/16 00:00 98.1 84 29 112/56 98 07/30/16 00:00 88 Venturi Mask 50 07/30/16 00:00 84 07/29/16 23:20 94 50 07/29/16 22:00 93 07/29/16 21:13 94 Nasal Cannula 4.00 07/29/16 20:00 97.7 90 34 124/60 91 07/29/16 20:00 90 07/29/16 18:00 81 07/29/16 16:00 81 07/29/16 16:00 98.8 93 22 121/68 98 07/29/16 14:00 78 07/29/16 07/29/16 07/30/16 15:00 23:00 07:00 Intake Total 1152 ml 1201 ml 847 ml Output Total 1300 ml 1200 ml 650 ml Balance -148 ml 1 ml 197 ml IV Total 1152 ml 901 ml 547 ml Tube Irrigant 300 ml 300 ml Output Urine Total 950 ml 1200 ml 650 ml Stool Total 350 ml 0 ml . Laboratory Tests Test 07/28/16 07/29/16 07/30/16 21:10 04:22 01:30 Hemoglobin 9.0 GM/DL 9.4 GM/DL 11.1 GM/DL Hematocrit 28.6 % 29.2 % 33.9 % White Blood Count 21.2 TH/MM3 13.9 TH/MM3 Red Blood Count 3.72 MIL/MM3 4.40 MIL/MM3 Mean Corpuscular Volume 78.6 FL 77.1 FL Mean Corpuscular Hemoglobin 25.3 PG 25.3 PG Mean Corpuscular Hemoglobin 32.2 % 32.8 % Concent Red Cell Distribution Width 23.1 % 25.5 % Platelet Count 189 TH/MM3 179 TH/MM3 Mean Platelet Volume 9.3 FL 8.4 FL Neutrophils (%) (Auto) 96.6 % Lymphocytes (%) (Auto) 2.2 % Monocytes (%) (Auto) 1.1 % Eosinophils (%) (Auto) 0.0 % Basophils (%) (Auto) 0.1 % Neutrophils # (Auto) 20.5 TH/MM3 Lymphocytes # (Auto) 0.5 TH/MM3 Monocytes # (Auto) 0.2 TH/MM3 Eosinophils # (Auto) 0.0 TH/MM3 Basophils # (Auto) 0.0 TH/MM3 CBC Comment AUTO DIFF Differential Comment AUTO DIFF CONFIRMED Ovalocytes 1+ [place] Cells 1+ Acanthocytes 1+ Laboratory Tests Test 07/28/16 07/29/16 07/29/16 07/30/16 21:10 04:22 13:25 01:30 Potassium Level 2.8 MEQ/L 3.3 MEQ/L 3.8 MEQ/L 3.1 MEQ/L Sodium Level 153 MEQ/L 145 MEQ/L Chloride Level 117 MEQ/L 110 MEQ/L Carbon Dioxide Level 22.5 MEQ/L 22.2 MEQ/L Anion Gap 14 MEQ/L 13 MEQ/L Blood Urea Nitrogen 52 MG/DL 45 MG/DL Creatinine 2.10 MG/DL 1.91 MG/DL Estimat Glomerular Filtration 31 ML/MIN 35 ML/MIN Rate Random Glucose 121 MG/DL 129 MG/DL Calcium Level 8.6 MG/DL 8.7 MG/DL Total Bilirubin 1.7 MG/DL Aspartate Amino Transf 24 U/L (AST/SGOT) Alanine Aminotransferase 17 U/L (ALT/SGPT) Alkaline Phosphatase 25 U/L B-Type Natriuretic Peptide 1343 PG/ML Total Protein 6.4 GM/DL Albumin 1.9 GM/DL Microbiology Date/Time Procedure Status Source Growth 07/27/16 16:04 Aerobic Blood Culture - Preliminary Resulted Blood Peripheral NO GROWTH IN 3 DAYS 07/27/16 16:04 Anaerobic Blood Culture - Preliminary Resulted Blood Peripheral NO GROWTH IN 3 DAYS 07/27/16 16:11 Aerobic Blood Culture - Preliminary Resulted Blood Peripheral NO GROWTH IN 3 DAYS 07/27/16 16:11 Anaerobic Blood Culture - Preliminary Resulted Blood Peripheral NO GROWTH IN 3 DAYS 07/28/16 12:40 Gram Stain - Final Resulted Wound Knee 07/28/16 12:40 Wound Culture - Preliminary Resulted Wound Knee NO GROWTH IN 48 HOURS. 07/30/16 01:25 Aerobic Blood Culture Received Blood Peripheral Pending 07/30/16 01:25 Anaerobic Blood Culture Received Blood Peripheral Pending 07/30/16 01:30 Aerobic Blood Culture Received Blood Peripheral Pending 07/30/16 01:30 Anaerobic Blood Culture Received Blood Peripheral Pending Imaging Last Impressions Chest X-Ray 07/28/16 0000 Signed Impressions: Service Date/Time: Thursday, July 28, 2016 09:35 - CONCLUSION: 1. The side port of the gastric tube is approximately 5 cm above the level of the diaphragm and needs to be advanced. 2. Persistent dense consolidation left lower lobe. Hector Crawford MD Knee X-Ray 07/27/[id number] Signed Impressions: Service Date/Time: Wednesday, July 27, 2016 21:30 - CONCLUSION: Intact left knee. Mild osteoarthritis, nonspecific joint effusion and suspected distal quadriceps tendinosis. Josue Dimas MD Hip X-Ray [id number] Signed Impressions: Service Date/Time: Wednesday, July 27, 2016 21:24 - CONCLUSION: No acute bony abnormality demonstrated. No fracture, subluxation or significant joint space narrowing of the left hip. Josue Dimas MD Head CT 07/26/16 1534 Signed Impressions: Service Date/Time: Tuesday, July 26, 2016 16:47 - CONCLUSION: 1. 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 2. No acute intracranial abnormality. David Montes MD Abdomen/Pelvis CT 07/26/16 0000 Signed Impressions: Service Date/Time: Tuesday, July 26, 2016 16:52 - CONCLUSION: 1. Infrarenal abdominal aortic aneurysm measures 3.4 cm. Aneurysmal dilatation right common iliac artery. 2. 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 3. Prominence of the left adrenal gland. David Montes MD Physical Exam GENERAL: awake and alert, not in distress, on nasal O2. Cachectic SKIN: Warm and dry. No generalized rash, no ecchymoses and no evidence of embolic lesions. HEENT: Kerr conjunctiva. No petechia or hemorrhage. No scleral icterus. No injection or drainage. Mucous membranes pink and moist. No oral lesions noted. No exudate. No oral thrush. He is edentulous. NECK: Trachea midline. Supple and not tender, no meningeal signs CARDIOVASCULAR: Regular rate and rhythm. No murmurs, rubs or gallops heard RESPIRATORY: Scattered rales ABDOMEN: Soft, flat, mildly distended, with mild diffuse tenderness. Bowel sounds present and normoactive. No guarding. No rebound. EXTREMITIES: No clubbing, or cyanosis. Has bilateral pedal edema. His LLE looks bigger than RLE. Has significant pain with any movement of his LLE. NEUROLOGICAL: Awake and alert. Cranial nerves grossly intact. Motor grossly within normal limits. PSYCHIATRIC: Calm and cooperative. LINE: No evidence of infection : Weems in place, urine looks clear Assessment & Plan Remarks IMPRESSION Sepsis, on admission, due to PNA Pneumococcal bacteremia, ?from PNA - Sputum with Hemophilus - echo with mod AI and mild MR, valve thickness normal Respiratory failure, extubated 6/6 Renal insufficiency, improving Atrial fib RVR, back in NSR Severe anemia, GIB L knee effusion, has pesudogout, ?with septic joint - C/S negative DVT LLE, non-occlusive thrombus RLE Leukocytosis, better RECOMMENDATION Change Abx to Rocephin to cover the pneumococcus - stop Zosyn and Vancomycin Continue steroids for pseudogout GI evaluation in progress Being diuresed Follow C/S Monitor progress Will determine course of Abx - clinically source seems to be PNA - currently no evidence of meningitis on exam - has valvular abnormality, but valve thickness normal D/W RN D/W Adela Gaston MD Jul 30, 2016 13:52
--- NOTE | 2016-07-30 14:28 | HHI.PR ---
Subjective Remarks Follow-up sepsis/severe anemia/atrial fibrillation 07/30/16-patient seen and examined, some shortness of breath however denies any chest pain. Currently nothing by mouth. BP soft. Renal indices improving. Plan for EGD/colonoscopy today Objective Vitals Vital Signs Date Time Temp Pulse Resp B/P Pulse Ox O2 Delivery O2 Flow Rate FiO2 07/30/16 10:21 96 Nasal Cannula 4.00 07/30/16 10:00 77 07/30/16 08:00 98.3 74 26 125/55 95 07/30/16 08:00 96 Nasal Cannula 4.00 07/30/16 08:00 75 07/30/16 06:00 78 07/30/16 04:11 96 40 07/30/16 04:00 80 07/30/16 04:00 98.3 80 27 118/57 96 07/30/16 02:00 81 07/30/16 02:00 97 Bi-Pap 35 07/30/16 01:50 96 40 07/30/16 00:30 95 Bi-Pap 100 07/30/16 00:20 97 40 07/30/16 00:00 98.1 84 29 112/56 98 07/30/16 00:00 88 Venturi Mask 50 07/30/16 00:00 84 07/29/16 23:20 94 50 07/29/16 22:00 93 07/29/16 21:13 94 Nasal Cannula 4.00 07/29/16 20:00 97.7 90 34 124/60 91 07/29/16 20:00 90 07/29/16 18:00 81 07/29/16 16:00 81 07/29/16 16:00 98.8 93 22 121/68 98 I/O 07/29/16 07/29/16 07/29/16 07/30/16 07/30/16 07/30/16 06:59 14:59 22:59 06:59 14:59 22:59 Intake Total 2884 ml 1152 ml 1201 ml 847 ml Output Total 450 ml 1300 ml 1200 ml 650 ml Balance 2434 ml -148 ml 1 ml 197 ml IV Total 1010 ml 1152 ml 901 ml 547 ml Tube Irrigant 300 ml 300 ml Other 1874 ml Output Urine Total 450 ml 950 ml 1200 ml 650 ml Stool Total 350 ml 0 ml # Bowel Movements 3 Result Diagram: 07/30/16 0130 07/30/16 1321 Imaging Last Impressions Chest X-Ray 07/29/16 0000 Signed Impressions: Service Date/Time: Friday, July 29, 2016 22:58 - CONCLUSION: Airspace disease throughout the lungs clearly worse than on the previous study Pritesh Horan MD Lower Extremity Ultrasound 07/28/16 0000 Signed Impressions: Service Date/Time: Thursday, July 28, 2016 21:45 - CONCLUSION: Nonocclusive thrombus in the right leg. David Montes MD Knee X-Ray 07/27/16 1647 Signed Impressions: Service Date/Time: Wednesday, July 27, 2016 21:30 - CONCLUSION: Intact left knee. Mild osteoarthritis, nonspecific joint effusion and suspected distal quadriceps tendinosis. Josue Dimas MD Hip X-Ray 07/27/16 1647 Signed Impressions: Service Date/Time: Wednesday, July 27, 2016 21:24 - CONCLUSION: No acute bony abnormality demonstrated. No fracture, subluxation or significant joint space narrowing of the left hip. Josue Dimas MD Head CT 07/26/16 1534 Signed Impressions: Service Date/Time: Tuesday, July 26, 2016 16:47 - CONCLUSION: 1. 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 2. No acute intracranial abnormality. David Montes MD Chest CT 07/26/16 0000 Signed Impressions: Service Date/Time: Tuesday, July 26, 2016 16:52 - CONCLUSION: 1. Mucous plugging with opacification of left lower lobe bronchi likely bronchitis/infection. 2. Right lung clear. David Montes MD Abdomen/Pelvis CT 07/26/16 0000 Signed Impressions: Service Date/Time: Tuesday, July 26, 2016 16:52 - CONCLUSION: 1. Infrarenal abdominal aortic aneurysm measures 3.4 cm. Aneurysmal dilatation right common iliac artery. 2. 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 3. Prominence of the left adrenal gland. David Montes MD Objective Remarks GENERAL: NAD with restrains to UEs SKIN: Warm and dry. HEAD: Normocephalic. EYES: No scleral icterus. No injection or drainage. NECK: Supple, trachea midline. No JVD or lymphadenopathy. CARDIOVASCULAR: Regular rate and rhythm with II/ PETRA RESPIRATORY: Breath sounds equal bilaterally. No accessory muscle use. GASTROINTESTINAL: Abdomen soft, non-tender, nondistended. MUSCULOSKELETAL: No cyanosis,; +1 edema BLE. BACK: Nontender without obvious deformity. No CVA tenderness. A/P Problem List: (1) Acute respiratory failure ICD Code: J96.00 Status: Acute (2) Encephalopathy acute ICD Code: G93.40 Status: Acute (3) Septic shock ICD Code: A41.9 Status: Acute (4) GI bleed ICD Code: K92.2 Status: Acute (5) Atrial fibrillation with rapid ventricular response ICD Code: I48.91 Status: Acute (6) Severe anemia ICD Code: D64.9 Status: Acute (7) Lactic acidosis ICD Code: E87.2 Status: Acute (8) Acute kidney failure ICD Code: N17.9 Status: Acute (9) Dehydration ICD Code: E86.0 Status: Acute (10) Leukocytosis ICD Code: D72.829 Status: Acute (11) Elevated troponin ICD Code: R74.8 Status: Acute (12) possible history of PE in 2011 Status: Acute Assessment and Plan 71-year-old man with Acute encephalopathy most likely metabolic- resolving. Previous CVA with encephalomalacia -CT head shows old infarcts without any acute findings, -EEG 07/27: Diffuse Encephalopathy -UDS + Benzos, cannabinoids therefore it avoid benzos Acute hypoxemic respiratory failure- resolved Acute COPD exacerbation Tobacco abuse -Currently on 4 L NC BiPAP when necessary -Continue with Solu-Medrol 20 mg every 12H, DuoNeb and maintain oxygen saturation above 90% Septic and hypovolemic shock - resolved. Atrial fibrillation with RVR - resolved Lactic acidosis ..resolved Elevated trop -Monitor HR and BP keep MAP>65mmHg - 2-D echo with EF 50-55%, no RWMA, cards is following- Dr. Banda -Patient is not a candidate for ASA or AC due to GI bleed. -Continue by mouth amiodarone GI bleed Severe anemia requiring transfusion 3.4 cm infrarenal AAA -s/p Transfuse 4U PRBC.07/26 -GI and plan for panendoscopy today 07/30/16 -Continue with tube feeds- Nepro @40ml/hr -Continue IV Protonix infusion -Colace and Senna for bowel regimen. -No intervention needed for AAA at this time Acute kidney injury ....improving Hypernatremia-resolved Hypokalemia Hyperchloremia -Monitor renal function , I/O's, electrolytes replacement as needed. Avoid nephrotoxins -Continue IVF to D5W @75ml/hr, monitor sodium level. Appreciate input from nephrology -Continue Free water 300ml Q6. Monitor sodium level. -Monitor renal function Sepsis Gram positive bacteremia -Continue Rocephin per infectious disease specialist Gout -colchicine 1.2mg po x 1. - Seen by Ortho s/p left Knee aspiration, consistent with acute gout flair. DVT -u/s with evidence of DVT. However, patient unable to be anticoagulated at this time given his active GI bleeding. will need anticoagulation at some point. PROPH: -Bilateral lower extremity SCDs/ANGELITO. Protonix gtt. chemical DVT prophylaxis contraindicated due to GI bleed Total critical care spent 35 minutes Problem Qualifiers (1) Acute respiratory failure: Qualified Code: J96.00 - Acute respiratory failure, unspecified whether with hypoxia or hypercapnia (2) GI bleed: Qualified Code: K92.2 - Gastrointestinal hemorrhage, unspecified gastrointestinal hemorrhage type (3) Acute kidney failure: Qualified Code: N17.9 - Acute renal failure, unspecified acute renal failure type (4) Leukocytosis: Qualified Code: D72.829 - Leukocytosis, unspecified type David Wheeler MD Jul 30, 2016 14:28
--- NOTE | 2016-07-30 14:46 | EKG ---
Date Performed: 07/30/2016 Time Performed: 00:14:28 PTAGE: 71 years EKG: Sinus rhythm . Poor R wave progression - probable normal variant Borderline ECG PREVIOUS TRACING : 07/26/2016 15.36 Compared to previous tracing, sinus rhythm has replaced atr ial fibrillation with rapid ventricular response. Previously seen ST changes have improved notably. DOCTOR: Kahlil Arnett Interpretating Date/Time 07/30/2016 14:43:56
[2016-07-30] MEDS ORDERED: PROPOFOL 200 MG/20 ML AMP IV PUSH ONE (15:02)
--- NOTE | 2016-07-30 15:03 | GIPROC ---
[facility] [address] [facility]. [facility], [address] EGD PROCEDURE REPORT EXAM DATE: 07/30/2016 PATIENT NAME: Russ Finley MR #: [id number] BIRTHDATE: 1945 ATTENDING: Santos Gastelum MD ORDER #: [id number] SENIOR SOFTWARE PROJECT MANAGER: Tawny Head and Virgie Ya STATUS: inpatient INDICATIONS: The patient is a 71 yr old male here for an EGD due to anemia PROCEDURE PERFORMED: EGD w/ biopsy MEDICATIONS: None and Per Anesthesia. TOPICAL ANESTHETIC: none CONSENT: The patient understands the risks and benefits of the procedure and understands that these risks include, but are not limited to: sedation, allergic reaction, infection, perforation and/or bleeding. Alternative means of evaluation and treatment include, among others: physical exam, x-rays, and/or surgical intervention. The patient elects to proceed with this endoscopic procedure. medical equipment was checked for proper function. Hand hygiene and appropriate measures for infection prevention was taken. After the risks, benefits and alternatives of the procedure were thoroughly explained, Informed consent was verified, confirmed and timeout was successfully executed by the treatment team. The patient was anesthetized with topical anesthesia and the EC-[id number] (Pedi C) endoscope was introduced through the mouth and advanced to the second portion of the duodenum. Retroflexed views revealed Mass The gastroscope was then slowly withdrawn and removed. ESOPHAGUS: A circumferential fungating and polypoid shaped mass with friable surfaces was found in the middle third of the esophagus and lower third esophagus. Multiple biopsies were performed using cold forceps. Sample sent for histology. STOMACH: A circumferential mass was found at the gastroesophageal junction. DUODENUM: The duodenal mucosa appeared normal in the bulb and second portion of the duodenum. ADVERSE EVENTS: There were no complications. IMPRESSIONS: 1. Circumferential mass was found in the middle third of the esophagus and another one at the lower third esophagus with few centermeters spared area; multiple biopsies were performed 2. Circumferential mass was found at the gastroesophageal junction protruding from lower esopahgus 3. Normal duodenal mucosa in the bulb and second portion of the duodenum RECOMMENDATIONS: Await biopsy results. Biopsy results will not be ready for 7-10 days. If you don't hear from us in two weeks, call our office for biopsy results. PATIENT CONDITION: stable DISPOSITION: Observation REPEAT EXAM: NONE Santos Gastelum MD eSigned: Santos Gastelum MD 07/30/2016 3:03 PM cc: PATIENT NAME: Russ Finley MR#: [id number]
--- NOTE | 2016-07-30 15:08 | GIPROC ---
[facility] [address] [facility]. [facility], [address] COLONOSCOPY PROCEDURE REPORT EXAM DATE: 07/30/2016 PATIENT NAME: Russ Finley MR #: [id number] BIRTHDATE: 1945 ENDOSCOPIST: Santos Gastelum MD ORDER #: [id number] PRODUCTIVITY ENGINEER: Tawny Head and Virgie Ya STATUS: inpatient INDICATIONS: The patient is a 71 yr old male here for a colonoscopy due to anemia, non-specific PROCEDURE PERFORMED: Colonoscopy, incomplete MEDICATIONS: None and Per Anesthesia. PREP QUALITY: poor PREP TYPE:GoLytely ESTIMATED BLOOD LOSS: None CONSENT: The patient understands the risks and benefits of the procedure and understands that these risks include, but are not limited to: sedation, allergic reaction, infection, perforation and/or bleeding. Alternative means of evaluation and treatment include, among others: physical exam, x-rays, and/or surgical intervention. The patient elects to proceed with this endoscopic procedure. medical equipment was checked for proper function. Hand hygiene and appropriate measures for infection prevention was taken. After the risks, benefits and alternatives of the procedure were thoroughly explained, Informed consent was verified, confirmed and timeout was successfully executed by the treatment team. A digital exam was performed The Pentax [id number] endoscope was introduced through the anus and advanced to the cecum, which was identified by both the appendix and ileocecal valve. The instrument was then slowly withdrawn as the colon was fully examined. COLON FINDINGS: A significant amount of stool was present in the sigmoid colon. Retroflexion was not performed due to a narrow rectal vault The scope was then completely withdrawn from the patient and the procedure terminated. PROCEDURE WITHDRAWAL TIME:5minutes ADVERSE EVENTS: There were no complications. IMPRESSIONS: 1. Significant amount of stool was present in the sigmoid colon, scope cannot be advanced beyound distal sigmoid. 2. Retroflexion was not performed due to a narrow rectal vault 3. Incomplete study to the distal sigmoid. RECOMMENDATIONS: Upper endoscopy RECALL: Return in few days for Colonoscopy after esophageal biopsies results and clear management plan. Santos Gastelum MD eSigned: Santos Gastelum MD 07/30/2016 3:08 PM cc:
[2016-07-30] MEDS ORDERED: *RESP: ALBUTEROL 2.5 MG/3 ML NEB (PRN) PERIprocedural Use ONLY NEB ONE (15:13)
[2016-07-30] MEDS ORDERED: DO NOT ADM ANY ANTICOAGULANT DRUGS PRN (15:14)
[2016-07-30] MEDS: cefTRIAXone INJ 2,000 MG in SODIUM CHLORIDE 0.9% INJ 100 ML IV SCH (16:06)
[2016-07-31] VITALS (23 sets, daily range): BP systolic 109–131; BP diastolic 53–62; PULSE 75–140; RESP 25–33; TEMP 97.9–98.7; O2SAT 88–100
[2016-07-31] MEDS: INSULIN NovoLIN REGULAR SUPPLEMENTAL SCALE SQ SCH ×4 (03:45→21:45)
[2016-07-31] MEDS: CHLORHEXIDINE GLUCONATE 2 % 1 PACK (2 CLOTHS) TOP SCH (04:00)
[2016-07-31 05:28] LABS: HEMATOCRIT 31.5 % (39.0-51.0); MEAN CORPUSCULAR HEMOGLOBIN 24.8 PG (27.0-34.0); MEAN CORPUSCULAR HGB CONC 31.4 % (32.0-36.0); PLATELET COUNT 176 TH/MM3 (150-450); RED BLOOD COUNT 3.99 MIL/MM3 (4.50-5.90); RED CELL DISTRIBUTION WIDTH 25.7 % (11.6-17.2); WHITE BLOOD COUNT 14.9 TH/MM3 (4.0-11.0)
[2016-07-31 05:32] LABS: REVIEW FLAG FINAL
[2016-07-31 05:39] LABS: MAGNESIUM 2.1 MG/DL (1.5-2.5); POTASSIUM 3.7 MEQ/L (3.5-5.1)
[2016-07-31] MEDS: DOCUSATE SODIUM 100 MG/10 ML UDC PO SCH ×2 (07:24→20:03)
[2016-07-31] MEDS: SENNOSIDES SYRUP 8.8 MG/5 ML CUP PO SCH (07:24)
[2016-07-31] MEDS: RESP: ALBUTEROL 2.5 MG/3 ML NEB (PRN) INH ×3 (07:58→19:56)
[2016-07-31] MEDS: CHLORHEXIDINE 0.12% (ORAL KIT) 15 ML CUP MT SCH ×2 (08:00→20:04)
[2016-07-31] MEDS ORDERED: FUROSEMIDE 20 MG/2 ML VIAL IV PUSH ONE (08:15)
[2016-07-31] MEDS: methylPREDNISolone SOD SUCC 40 MG/1 ML VIAL IV PUSH SCH ×2 (08:40→20:03)
[2016-07-31] MEDS: AMIODARONE 200 MG TAB PO SCH ×2 (08:41→20:03)
[2016-07-31] MEDS: PANTOPRAZOLE INJ 80 MG in SODIUM CHLORIDE 0.9% INJ 100 ML IV SCH (08:52)
[2016-07-31] MEDS: D5W + KCL 20 MEQ INJ 1,000 ML IV SCH (08:52)
--- NOTE | 2016-07-31 09:22 | RADRPT ---
EXAM DATE/TIME: 07/31/2016 08:36 [place] COMPARISON: CHEST SINGLE AP, July 29, 2016, 22:58. INDICATIONS : Short of breath. MEDICAL HISTORY : None. SURGICAL HISTORY : None. ENCOUNTER: Initial ACUITY: 4 - 6 days PAIN SCORE: 0/10 LOCATION: Bilateral cranial FINDINGS: Single portable frontal view of the chest shows persistent bilateral pulmonary infiltrates most prono unced within the bases. There is been slight improvement within the right upper lobe component. No di screte effusion. Heart is at the upper limits of normal in terms of size. Nasogastric tube courses of f the inferior margin of the film. CONCLUSION: Slight improvement within the right upper lobe component of the bilateral pulmonary infiltrates. Hector Garcia Jr., MD on July 31, 2016 at 9:18 Board Certified Radiologist. This report was verified electronically.
[2016-07-31] MEDS ORDERED: MAGNESIUM SULFATE 1 GM PREMIX 100 ML IV ONE (09:30)
[2016-07-31] MEDS ORDERED: BUMETANIDE INJ 1 MG/4 ML VIAL IV PUSH ONE (09:30)
[2016-07-31] MEDS ORDERED: AMIODARONE INJ 150 MG in DEXTROSE 5% IN WATER 100ML INJ 97 ML IV ONE ×2 (09:45)
--- NOTE | 2016-07-31 09:59 | HHI.NPPN ---
Subjective General Problems: Hypotension, Mebatolic Acidosis Renal Failure: Acute Interval History Renal function is slightly worse. He became hypoxic, placed on BiPap, with respiratory distress, now tachycardic. Lung sounds course. He was given IV Lasix and Bumex. (Nohemy Walker) Review of Systems General Constitutional: Fatigue (Nohemy Walker) Respiratory Lungs: SOB, Cough (Nohemy Walker) Musculoskeletal MS: Pain/Stiffness, Swelling in Joint MS Remarks left knee (Nohemy Walker) Objective Data Data 07/30/16 07/31/16 19:00 07:00 Intake Total 1081 ml 825 ml Output Total 1775 ml 1300 ml Balance -694 ml -475 ml Intake Oral 0 ml IV Total 781 ml 825 ml Other 300 ml Output Urine Total 1725 ml 1300 ml Estimated Blood Loss 50 ml # Bowel Movements 1 Vital Signs Date Time Temp Pulse Resp B/P Pulse Ox O2 Delivery O2 Flow Rate FiO2 07/31/16 09:20 96 100 07/31/16 08:01 91 Nasal Cannula 6.00 07/31/16 06:00 77 07/31/16 04:00 98.2 75 25 111/56 100 07/31/16 04:00 75 07/31/16 03:30 100 40 07/31/16 02:00 75 07/31/16 01:27 98 40 07/31/16 00:08 98 Bi-Pap 40 07/31/16 00:00 78 07/31/16 00:00 98.6 78 25 115/58 97 07/30/16 22:15 94 40 07/30/16 22:00 75 07/30/16 21:35 93 Nasal Cannula 3.00 07/30/16 20:00 75 07/30/16 20:00 98.1 75 27 108/57 92 07/30/16 19:00 93 Nasal Cannula 3.00 07/30/16 18:00 71 07/30/16 16:00 73 07/30/16 16:00 97.4 73 22 107/51 96 07/30/16 15:42 97.4 76 17 99/50 96 07/30/16 15:30 73 16 95/47 94 07/30/16 15:13 97.8 76 17 93/45 96 07/30/16 12:00 98.6 80 24 110/54 95 07/30/16 12:00 80 07/30/16 10:21 96 Nasal Cannula 4.00 07/30/16 10:00 77 (Nohemy Walker) -: 07/31/16 0453 07/31/16 0453 Imaging Last 72 hours Impressions Chest X-Ray 07/31/16 0000 Signed Impressions: Service Date/Time: Sunday, July 31, 2016 08:36 - CONCLUSION: Slight improvement within the right upper lobe component of the bilateral pulmonary infiltrates. Hector Garcia Jr., MD Chest X-Ray 07/29/16 0000 Signed Impressions: Service Date/Time: Friday, July 29, 2016 22:58 - CONCLUSION: Airspace disease throughout the lungs clearly worse than on the previous study Pritesh Horan MD Tubes & Lines: Weems Drip Comment Protonix , amiodarone (Nohemy Walker) Physical Exam General Appearance: Well Developed, No Acute Distress, Comfortable, Malnourished Appearance Remarks awake, on BiPap, answers questions (Nohemy Walker) Throat Throat Exam: Oral Mucosa [place] & Moist (Nohemy Walker) Pulmonary Resp Exam: Breath Sounds Equal, Crackles, Rhonchi, Sputum Resp Remarks coughing, course throughout (Nohemy Walker) Cardiology CV Exam: Good Perfusion, Irregular, Arrhythmia (Nohemy Walker) Gastrointestinal/Abdomen GI Exam: Soft, Non-Tender, Bowel Sounds Present GI Remarks flat abdomen (Nohemy Walker) Musculoskeletal MS Exam: Joints Intact, Normal Tone MS Remarks pain in left leg with palpation (Nohemy Walker) Integumentary Skin Exam: Clear, Warm, Dry, Intact (Nohemy Walker) Extremeties Extremities Exam: Pedal Pulses Palpable, Pitting Edema, Dependent Edema ( Nohemy Walker) Neurologic Neuro Exam: Alert, Awake, Oriented, Speech Clear, Moving All Extremities ( Nohemy Walker) Psychiatric Psych Exam: Appropriate Responses (Nohemy Walker) Assessment/Plan Discussed Condition With: Patient Assessment Summary: TAMMY/Acute Renal Failure Problem List: (1) Acute kidney failure Plan: in a patient with no labs for comparison TAMMY due to intravascular volume depletion and sepsis with hypotension; may have progressed to ATN 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, no indication of surgical removal renal function is worse today he is non oliguric needs diuresis, given lasix and bumex, give a dose of diuril stop IVF given 20 mEq KCL IV follow renal function and electrolytes daily (2) Severe anemia Plan: Hb improved, Hemoccult positive, see below s/p EGD/colonoscopy , 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 also microcytic anemia, slight iron deficiency avoid Venofer in light of sepsis (3) Septic shock Plan: ID following 05/26 blood cultures are bottles positive, sputum culture also positive he is on vancomycin and Zosyn also has gout in left knee repeat blood cultures are negative to date source suspected Pneumonia , however he may have septic joint, s/p aspiration, may require surgical I&D with arthrotomy by ortho, they are following legionella antigen in urine is negative (4) Elevated troponin Plan: possibly due to demand ischemia from A fib RVR, sepsis cardiology has evaluated, who recommend treat underlying cause (5) Acute respiratory failure Plan: on BiPap needs diuresis (6) Hypernatremia Plan: improved stop D5W, free water via NG tube when off BiPap follow metabolic profile (7) GI (gastrointestinal bleed) Plan: GI following, no GI bleeding on scope 07/30 on Protonix gtt follow Hb (8) Atrial fibrillation with rapid ventricular response Plan: back on amiodarone gtt, tachycardic titrate to effectiveness (Nohemy Walker) Plan patient was seen and examined. Hypernatremia may get worse. Given loop diuretics. (Charly Rose MD) Problem Qualifiers (1) Acute kidney failure: Qualified Code: N17.9 - Acute renal failure, unspecified acute renal failure type (2) Acute respiratory failure: Qualified Code: J96.00 - Acute respiratory failure, unspecified whether with hypoxia or hypercapnia Nohemy Walker Jul 31, 2016 09:59 Charly Rose MD Jul 31, 2016 17:12
[2016-07-31] MEDS ORDERED: POTASSIUM CHLOR 20 MEQ PREMIX 100 ML IV ONE (10:00)
[2016-07-31] MEDS ORDERED: CHLOROTHIAZIDE SOD 500 MG VIAL IV ONE (10:00)
--- NOTE | 2016-07-31 13:04 | HHI.PR ---
Subjective Remarks Follow-up sepsis/severe anemia/atrial fibrillation 07/30/16-patient seen and examined, some shortness of breath however denies any chest pain. Currently nothing by mouth. BP soft. Renal indices improving. Plan for EGD/colonoscopy today 07/31/16-patient seen and examined he is having increase work of breathing and currently on BiPAP despite treatment with IV diuretics. Heart rate up Objective Vitals Vital Signs Date Time Temp Pulse Resp B/P Pulse Ox O2 Delivery O2 Flow Rate FiO2 07/31/16 12:00 133 07/31/16 12:00 98.7 133 27 118/56 100 07/31/16 11:00 127 32 123/58 100 07/31/16 10:00 140 07/31/16 10:00 140 33 116/57 94 07/31/16 09:20 96 100 07/31/16 09:00 77 31 118/57 96 07/31/16 08:01 91 Nasal Cannula 6.00 07/31/16 08:00 98.4 78 29 131/58 90 07/31/16 08:00 78 07/31/16 07:00 93 Nasal Cannula 6.00 07/31/16 07:00 77 29 129/62 93 07/31/16 06:00 77 07/31/16 04:00 98.2 75 25 111/56 100 07/31/16 04:00 75 07/31/16 03:30 100 40 07/31/16 02:00 75 07/31/16 01:27 98 40 07/31/16 00:08 98 Bi-Pap 40 07/31/16 00:00 78 07/31/16 00:00 98.6 78 25 115/58 97 07/30/16 22:15 94 40 07/30/16 22:00 75 07/30/16 21:35 93 Nasal Cannula 3.00 07/30/16 20:00 75 07/30/16 20:00 98.1 75 27 108/57 92 07/30/16 19:00 93 Nasal Cannula 3.00 07/30/16 18:00 71 07/30/16 16:00 73 07/30/16 16:00 97.4 73 22 107/51 96 07/30/16 15:42 97.4 76 17 99/50 96 07/30/16 15:30 73 16 95/47 94 07/30/16 15:13 97.8 76 17 93/45 96 I/O 07/30/16 07/30/16 07/30/16 07/31/16 07/31/16 07/31/16 07:00 15:00 23:00 07:00 15:00 23:00 Intake Total 847 ml 681 ml 837 ml 388 ml Output Total 650 ml 1275 ml 1200 ml 600 ml Balance 197 ml -594 ml -363 ml -212 ml Intake Oral 0 ml IV Total 547 ml 681 ml 537 ml 388 ml Tube Irrigant 300 ml Other 300 ml Output Urine Total 650 ml 1275 ml 1150 ml 600 ml Estimated Blood Loss 50 ml # Bowel Movements 1 Result Diagram: 07/31/1645207/31/16452 Objective Remarks GENERAL: NAD with BiPAP in place SKIN: Warm and dry. HEAD: Normocephalic. EYES: No scleral icterus. No injection or drainage. NECK: Supple, trachea midline. No JVD or lymphadenopathy. CARDIOVASCULAR: Regular rate and rhythm with II/ PETRA RESPIRATORY: Breath sounds equal bilaterally. + accessory muscle use. GASTROINTESTINAL: Abdomen soft, non-tender, nondistended. MUSCULOSKELETAL: No cyanosis,; +1 edema BLE. BACK: Nontender without obvious deformity. No CVA tenderness. A/P Problem List: (1) Acute respiratory failure ICD Code: J96.00 Status: Acute (2) Encephalopathy acute ICD Code: G93.40 Status: Acute (3) Septic shock ICD Code: A41.9 Status: Acute (4) GI bleed ICD Code: K92.2 Status: Acute (5) Atrial fibrillation with rapid ventricular response ICD Code: I48.91 Status: Acute (6) Severe anemia ICD Code: D64.9 Status: Acute (7) Lactic acidosis ICD Code: E87.2 Status: Acute (8) Acute kidney failure ICD Code: N17.9 Status: Acute (9) Dehydration ICD Code: E86.0 Status: Acute (10) Leukocytosis ICD Code: D72.829 Status: Acute (11) Elevated troponin ICD Code: R74.8 Status: Acute (12) possible history of PE in 2011 Status: Acute Assessment and Plan 71-year-old man with Acute encephalopathy most likely metabolic- resolving. Previous CVA with encephalomalacia -CT head shows old infarcts without any acute findings, -EEG 07/27: Diffuse Encephalopathy -UDS + Benzos, cannabinoids therefore it avoid benzos Acute hypoxemic respiratory failure- Acute COPD exacerbation Tobacco abuse -Currently on BiPAP with significant increase work of breathing. Patient is at increased risk for reintubation -Continue with Solu-Medrol 10 mg every 12H until 08/01/16, DuoNeb and maintain oxygen saturation above 90% Septic and hypovolemic shock - resolved. Atrial fibrillation with RVR - Lactic acidosis ..resolved Elevated trop - 2-D echo with EF 50-55%, no RWMA. Cardiology, Dr. Banda following -Patient is not a candidate for ASA or AC due to GI bleed. -Continue by mouth amiodarone 100 mg by mouth every 12. Status post Amiodarone 150 mg IV 1 07/31/16 and consider starting Amiodarone Drip if no improvement GI bleed Severe anemia requiring transfusion 3.4 cm infrarenal AAA -s/p Transfuse 4U PRBC.07/26 -Status post panendoscopy 07/30/16 and Incomplete colonoscopy study to the distal sigmoid. -d/c IV Protonix infusion -Colace and Senna for bowel regimen. -No intervention needed for AAA at this time Acute kidney injury Hypernatremia-resolved Hypokalemia Hyperchloremia -Monitor renal function , I/O's, electrolytes replacement as needed. Avoid nephrotoxins -s/p Lasix and Bumex and Diuril x 1 IV doses for diuresis this AM -Monitor renal function Sepsis Gram positive bacteremia -Continue Rocephin per infectious disease specialist Gout -colchicine 1.2mg po x 1. - Seen by Ortho s/p left Knee aspiration, consistent with acute gout flair. DVT -u/s with evidence of DVT. However, patient unable to be anticoagulated at this time given his active GI bleeding. PROPH: -Bilateral lower extremity SCDs/ANGELITO. Protonix gtt. chemical DVT prophylaxis contraindicated due to GI bleed Total critical care spent 32 minutes Problem Qualifiers (1) Acute respiratory failure: Qualified Code: J96.00 - Acute respiratory failure, unspecified whether with hypoxia or hypercapnia (2) GI bleed: Qualified Code: K92.2 - Gastrointestinal hemorrhage, unspecified gastrointestinal hemorrhage type (3) Acute kidney failure: Qualified Code: N17.9 - Acute renal failure, unspecified acute renal failure type (4) Leukocytosis: Qualified Code: D72.829 - Leukocytosis, unspecified type David Wheeler MD Jul 31, 2016 13:04 David Wheeler MD Jul 31, 2016 13:04
--- NOTE | 2016-07-31 13:25 | HHI.IDPN ---
Subjective Subjective Remarks Patient is a 71-year-old male, brought into the hospital after he was found unresponsive. He apparently has a roommate and when he left the morning patient was question asleep or unresponsive. His ROM A went to work and when he came back patient was found in the same position in same location. EMS was called and patient was found to be hypotensive and hypoxic. Patient was given fluid resuscitation and brought into the emergency room. He ended up getting intubated in the emergency room. In the ER he was febrile, and tachycardic. He was given more fluid resuscitation. He was found to have a hemoglobin of 4.4. Creatinine was 2.7, and lactic acid was 6.2. His troponin was elevated. He was in atrial fibrillation with RVR. He was placed on Cardizem and has converted to normal sinus rhythm. Patient remains on the vent. His blood pressure is okay. Blood cultures done in the ED is now reported as growing gram -positive cocci. CT chest with opacity L base. CT A/P showed infrarenal aneurysm, and one kidney seen L. 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 His temps are better. WBC is down to normal. Notes reviewed D/W RN Was placed on BIPAP this morning, patient pulled it off, on nasal O2 currently Had afib RVR this morning, converted to NSR, but looks like he goes in and out of atrial fib Looks SOB Has a very congested cough Patient not good historian EGD findings noted - has 2 masses in esophagus Colonoscopy - incomplete study due to stool Path pending On steroids for pseudogout G/S L knee fluid no organism seen, C/S negative BC with PCN sensitive pneumococcus Sputum with H influenza No new (+) BC [place] and Pneumo Ag negative Echo with mod AI and mild MR, thickness of valves normal Has LLE DVT and non-occlusive thrombus R leg Creatinine better WBC decreasing CXR 07/29 - worsening infiltrates BNP >1000 Antibiotics Rocephin Past Medical History PE Allergies: Coded Allergies: No Known Allergies (Unverified , 07/26/16) Objective . Vital Signs Date Time Temp Pulse Resp B/P Pulse Ox O2 Delivery O2 Flow Rate FiO2 07/31/16 12:00 133 07/31/16 12:00 98.7 133 27 118/56 100 07/31/16 11:00 127 32 123/58 100 07/31/16 10:00 140 07/31/16 10:00 140 33 116/57 94 07/31/16 09:20 96 100 07/31/16 09:00 77 31 118/57 96 07/31/16 08:01 91 Nasal Cannula 6.00 07/31/16 08:00 98.4 78 29 131/58 90 07/31/16 08:00 78 07/31/16 07:00 93 Nasal Cannula 6.00 07/31/16 07:00 77 29 129/62 93 07/31/16 06:00 77 07/31/16 04:00 98.2 75 25 111/56 100 07/31/16 04:00 75 07/31/16 03:30 100 40 07/31/16 02:00 75 07/31/16 01:27 98 40 07/31/16 00:08 98 Bi-Pap 40 07/31/16 00:00 78 07/31/16 00:00 98.6 78 25 115/58 97 07/30/16 22:15 94 40 07/30/16 22:00 75 07/30/16 21:35 93 Nasal Cannula 3.00 07/30/16 20:00 75 07/30/16 20:00 98.1 75 27 108/57 92 07/30/16 19:00 93 Nasal Cannula 3.00 07/30/16 18:00 71 07/30/16 16:00 73 07/30/16 16:00 97.4 73 22 107/51 96 07/30/16 15:42 97.4 76 17 99/50 96 07/30/16 15:30 73 16 95/47 94 07/30/16 15:13 97.8 76 17 93/45 96 07/30/16 07/30/16 07/31/16 15:00 23:00 07:00 Intake Total 681 ml 837 ml 388 ml Output Total 1275 ml 1200 ml 600 ml Balance -594 ml -363 ml -212 ml Intake Oral 0 ml IV Total 681 ml 537 ml 388 ml Other 300 ml Output Urine Total 1275 ml 1150 ml 600 ml Estimated Blood Loss 50 ml # Bowel Movements 1 . Laboratory Tests Test 07/30/16 07/31/16 01:30 04:53 White Blood Count 13.9 TH/MM3 14.9 TH/MM3 Red Blood Count 4.40 MIL/MM3 3.99 MIL/MM3 Hemoglobin 11.1 GM/DL 9.9 GM/DL Hematocrit 33.9 % 31.5 % Mean Corpuscular Volume 77.1 FL 79.0 FL Mean Corpuscular Hemoglobin 25.3 PG 24.8 PG Mean Corpuscular Hemoglobin 32.8 % 31.4 % Concent Red Cell Distribution Width 25.5 % 25.7 % Platelet Count 179 TH/MM3 176 TH/MM3 Mean Platelet Volume 8.4 FL 8.8 FL Laboratory Tests Test 07/29/16 07/30/16 07/30/16 07/31/16 13:25 01:30 13:21 04:53 Potassium Level 3.8 MEQ/L 3.1 MEQ/L 3.5 MEQ/L 3.7 MEQ/L Sodium Level 145 MEQ/L 145 MEQ/L Chloride Level 110 MEQ/L 110 MEQ/L Carbon Dioxide Level 22.2 MEQ/L 23.0 MEQ/L Anion Gap 13 MEQ/L 12 MEQ/L Blood Urea Nitrogen 45 MG/DL 43 MG/DL Creatinine 1.91 MG/DL 2.00 MG/DL Estimat Glomerular Filtration 35 ML/MIN 33 ML/MIN Rate Random Glucose 129 MG/DL 115 MG/DL Calcium Level 8.7 MG/DL 8.4 MG/DL Total Bilirubin 1.7 MG/DL Aspartate Amino Transf 24 U/L (AST/SGOT) Alanine Aminotransferase 17 U/L (ALT/SGPT) Alkaline Phosphatase 25 U/L B-Type Natriuretic Peptide 1343 PG/ML Total Protein 6.4 GM/DL Albumin 1.9 GM/DL Magnesium Level 2.1 MG/DL Test 07/31/16 04:54 B-Type Natriuretic Peptide 1534 PG/ML Microbiology Date/Time Procedure Status Source Growth 07/30/16 01:25 Aerobic Blood Culture - Preliminary Resulted Blood Peripheral NO GROWTH IN 1 DAY 07/30/16 01:25 Anaerobic Blood Culture - Preliminary Resulted Blood Peripheral NO GROWTH IN 1 DAY 07/30/16 01:30 Aerobic Blood Culture - Preliminary Resulted Blood Peripheral NO GROWTH IN 1 DAY 07/30/16 01:30 Anaerobic Blood Culture - Preliminary Resulted Blood Peripheral NO GROWTH IN 1 DAY Imaging Last Impressions Chest X-Ray 07/28/16 0000 Signed Impressions: Service Date/Time: Thursday, July 28, 2016 09:35 - CONCLUSION: 1. The side port of the gastric tube is approximately 5 cm above the level of the diaphragm and needs to be advanced. 2. Persistent dense consolidation left lower lobe. Hector Crawford MD Knee X-Ray 07/27/167 Signed Impressions: Service Date/Time: Wednesday, July 27, 2016 21:30 - CONCLUSION: Intact left knee. Mild osteoarthritis, nonspecific joint effusion and suspected distal quadriceps tendinosis. Josue Dimas MD Hip X-Ray 07/27/161646 Signed Impressions: Service Date/Time: Wednesday, July 27, 2016 21:24 - CONCLUSION: No acute bony abnormality demonstrated. No fracture, subluxation or significant joint space narrowing of the left hip. Josue Dimas MD Head CT 07/26/16 1534 Signed Impressions: Service Date/Time: Tuesday, July 26, 2016 16:47 - CONCLUSION: 1. 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 2. No acute intracranial abnormality. David Montes MD Abdomen/Pelvis CT 07/26/16 0000 Signed Impressions: Service Date/Time: Tuesday, July 26, 2016 16:52 - CONCLUSION: 1. Infrarenal abdominal aortic aneurysm measures 3.4 cm. Aneurysmal dilatation right common iliac artery. 2. 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 3. Prominence of the left adrenal gland. David Montes MD Physical Exam GENERAL: awake and alert, cachectic, looks tachypneic at rest SKIN: Warm and dry. No generalized rash. HEENT: [place] conjunctiva. No petechia or hemorrhage. No scleral icterus. Mucous membranes pink and moist. He is edentulous. NECK: Trachea midline. Supple and not tender, no meningeal signs CARDIOVASCULAR: Regular rate and rhythm. No murmurs, rubs or gallops heard RESPIRATORY: Scattered rales, decreased at bases ABDOMEN: Soft, flat, mildly distended, with mild diffuse tenderness. Bowel sounds present and normoactive. No guarding. No rebound. EXTREMITIES: No clubbing, or cyanosis. Has bilateral pedal edema. His LLE looks bigger than RLE. Has significant pain with any movement of his LLE. NEUROLOGICAL: Awake and alert. Cranial nerves grossly intact. Motor grossly within normal limits. PSYCHIATRIC: Calm and cooperative. LINE: No evidence of infection : Weems in place, urine looks clear Assessment & Plan Remarks IMPRESSION Sepsis, on admission, due to PNA Pneumococcal bacteremia, ?from PNA - Sputum with Hemophilus - echo with mod AI and mild MR, valve thickness normal Respiratory failure, extubated 07/28 - has been requiring BIPAP Renal insufficiency, improving Atrial fib RVR, back in NSR Severe anemia, GIB L knee effusion, has pesudogout, ?with septic joint - C/S negative DVT LLE, non-occlusive thrombus RLE Leukocytosis, better Possible malignancy in the esophafgus RECOMMENDATION Continue Rocephin to cover the pneumococcus Continue steroids for pseudogout - to finish 08/01 Being diuresed Monitor respiratory status - may need reintubation Follow C/S Monitor progress Will determine course of Abx - clinically source seems to be PNA - currently no evidence of meningitis on exam - has valvular abnormality, but valve thickness normal D/W RN Dr Feliz available if needed this weekend Adela Dye MD Jul 31, 2016 13:25
[2016-07-31] MEDS: cefTRIAXone INJ 2,000 MG in SODIUM CHLORIDE 0.9% INJ 100 ML IV SCH (13:32)
[2016-07-31] MEDS ORDERED: methylPREDNISolone SOD SUCC 125 MG/2 ML VIAL IV PUSH ONE (14:30)
--- NOTE | 2016-07-31 16:43 | HHI.GIFU ---
Subjective Remarks Pt resting comfortably in bed, receiving breathing tx. Denies pain, n/v. ( Miriam Willett) Objective Vitals I&O Vital Signs Date Time Temp Pulse Resp B/P Pulse Ox O2 Delivery O2 Flow Rate FiO2 07/31/16 16:08 92 Venturi Mask 6.00 50 07/31/16 16:00 98.2 80 31 118/60 88 07/31/16 16:00 80 07/31/16 15:45 80 07/31/16 15:00 88 Venturi Mask 6.00 07/31/16 14:00 122 07/31/16 12:00 133 07/31/16 12:00 98.7 133 27 118/56 100 07/31/16 11:00 127 32 123/58 100 07/31/16 10:00 140 07/31/16 10:00 140 33 116/57 94 07/31/16 09:20 96 100 07/31/16 09:00 77 31 118/57 96 07/31/16 08:01 91 Nasal Cannula 6.00 07/31/16 08:00 98.4 78 29 131/58 90 07/31/16 08:00 78 07/31/16 07:00 93 Nasal Cannula 6.00 07/31/16 07:00 77 29 129/62 93 07/31/16 06:00 77 07/31/16 04:00 98.2 75 25 111/56 100 07/31/16 04:00 75 07/31/16 03:30 100 40 07/31/16 02:00 75 07/31/16 01:27 98 40 07/31/16 00:08 98 Bi-Pap 40 07/31/16 00:00 78 07/31/16 00:00 98.6 78 25 115/58 97 07/30/16 22:15 94 40 07/30/16 22:00 75 07/30/16 21:35 93 Nasal Cannula 3.00 07/30/16 20:00 75 07/30/16 20:00 98.1 75 27 108/57 92 07/30/16 19:00 93 Nasal Cannula 3.00 07/30/16 18:00 71 I/O 07/30/16 07/30/16 07/30/16 07/31/16 07/31/16 07/31/16 07:00 15:00 23:00 07:00 15:00 23:00 Intake Total 847 ml 681 ml 837 ml 388 ml 277 ml Output Total 650 ml 1275 ml 1200 ml 600 ml 2050 ml Balance 197 ml -594 ml -363 ml -212 ml -1773 ml Intake Oral 0 ml 0 ml IV Total 547 ml 681 ml 537 ml 388 ml 277 ml Tube Irrigant 300 ml Other 300 ml Output Urine Total 650 ml 1275 ml 1150 ml 600 ml 2050 ml Estimated Blood Loss 50 ml # Bowel Movements 1 0 Laboratory Laboratory Tests Test 07/31/16 07/31/16 04:53 04:54 White Blood Count 14.9 Red Blood Count 3.99 Hemoglobin 9.9 Hematocrit 31.5 Mean Corpuscular Volume 79.0 Mean Corpuscular Hemoglobin 24.8 Mean Corpuscular Hemoglobin 31.4 Concent Red Cell Distribution Width 25.7 Platelet Count 176 Mean Platelet Volume 8.8 Sodium Level 145 Potassium Level 3.7 Chloride Level 110 Carbon Dioxide Level 23.0 Anion Gap 12 Blood Urea Nitrogen 43 Creatinine 2.00 Estimat Glomerular Filtration 33 Rate Random Glucose 115 Calcium Level 8.4 Magnesium Level 2.1 B-Type Natriuretic Peptide 1534 Date/Time Procedure Status Source Growth 07/30/16 01:30 Aerobic Blood Culture - Preliminary Resulted Blood Peripheral NO GROWTH IN 1 DAY 07/30/16 01:30 Anaerobic Blood Culture - Preliminary Resulted Blood Peripheral NO GROWTH IN 1 DAY 07/28/16 12:40 Gram Stain - Final Complete Wound Knee 07/28/16 12:40 Wound Culture - Final Complete Wound Knee NO GROWTH IN 72 HRS.--AEROBICALLY OR ... 07/27/16 13:00 Legionella Antigen - Final Complete Urine Catheterized Urine PRESUMPTIVE NEGATIVE FOR LEGIONELLA P... 07/27/16 13:00 Streptococcus pneumoniae Antigen (M - Final Complete Urine Catheterized Urine PRESUMPTIVE NEGATIVE FOR STREPTOCOCCU... Physical Exam HEENT: EOMI; normocephalic; atraumatic; no jaundice. CHEST: couarse CARDIAC: irregular HR ABDOMEN: Soft, nondistended, nontender; no hepatosplenomegaly; bowel sounds are present in all four quadrants. EXTREMITIES: No clubbing, cyanosis, edema right hand, BLE SKIN: Normal; no rash; no jaundice. INVESTIGATOR FRAUD: alert, mildly confused. (TamieMiriam andino Assessment and Plan Plan ASSESSMENT - anemia - hgb 4.4 on admission, s/p PRBC. 9.9. No signs bleeding. Pt denies melena, hematemesis, or other bleeding. s/p colon/EGD --> circumferenctioal masses mid third esophagus, lower third esophagus, GE junction; colonoscopy incomplete due to presence stool. PLAN - await BX - MORIAH - monitor HH - transfuse PRN This pt seen by myself and Dr Gastelum and this note is written on his behalf ( Miriam Willett) Physician Comments patient seen and examined agree with above cont current supportive care monitor labs (Ishmael Peñaloza MD) Miriam Willett Jul 31, 2016 16:43 Ishmael Peñaloza MD Jul 31, 2016 18:18
[2016-07-31] MEDS ORDERED: BUMETANIDE INJ 1 MG/4 ML VIAL ONE (18:07)
[2016-08-01] VITALS (18 sets, daily range): BP systolic 99–133; BP diastolic 32–58; PULSE 57–124; RESP 16–46; TEMP 97–97.9; O2SAT 84–100
[2016-08-01] MEDS: CHLORHEXIDINE GLUCONATE 2 % 1 PACK (2 CLOTHS) TOP SCH (02:10)
[2016-08-01] MEDS ORDERED: ETOMIDATE 20 MG/10 ML VIAL ONE (04:28)
[2016-08-01] MEDS ORDERED: MIDAZOLAM 100 MG/NS 100 ML DRIP Premix IV SCH (05:00)
[2016-08-01] MEDS ORDERED: fentaNYL 2,500 MCG/NS 250 ML IV SCH (05:00)
[2016-08-01 05:31] LABS: HEMATOCRIT 35.1 % (39.0-51.0); MEAN CELL VOLUME 80.6 FL (80.0-100.0); MEAN CORPUSCULAR HEMOGLOBIN 25.6 PG (27.0-34.0); MEAN CORPUSCULAR HGB CONC 31.8 % (32.0-36.0); PLATELET COUNT 215 TH/MM3 (150-450); RED BLOOD COUNT 4.36 MIL/MM3 (4.50-5.90); RED CELL DISTRIBUTION WIDTH 26.2 % (11.6-17.2); WHITE BLOOD COUNT 13.4 TH/MM3 (4.0-11.0)
[2016-08-01 05:35] LABS: REVIEW FLAG FINAL
[2016-08-01 05:48] LABS: BLOOD GAS BASE EXCESS -7.2 mmol/L (-2-2); BLOOD GAS CARBOXYHEMOGLOBIN 1.1 % (0-4); BLOOD GAS HCO3 18 mmol/L (22-26); BLOOD GAS METHEMOGLOBIN 0.9 % (0-2); BLOOD GAS O2 HGB SATURATION 98 % (90-100); BLOOD GAS OXYGEN CONTENT 13.6 Vol % (12.0-20.0); BLOOD GAS PCO2 39 mmHg (38-42); BLOOD GAS PO2 265 mmHg (61-120); BLOOD GAS TOTAL HGB 9.4 G/DL (12.0-16.0); TEMP CORR TO 98.6
[2016-08-01 05:49] LABS: CRITICAL VALUE YES; OXYGEN DEVICE VENTILATOR
[2016-08-01 05:50] LABS: DRAW SITE LT BRACHIAL; FIO2 100 %; NUMBER OF ARTERIAL PUNCTURES 1; STAT YES; ULNAR PULSE PRESENT
--- NOTE | 2016-08-01 05:59 | PD.PROCEDR ---
Procedure Note Procedure Endotracheal Intubation A time-out was completed verifying correct patient, procedure, site, positioning , and special equipment if applicable. The patient was placed in a flat position. Sedation was obtained using Etomidate 20mg. The patient was easily ventilated using an ambu bag. The [employer]/ MAC 4 BLADE was used and inserted into the oropharynx at which time there was a Grade 1 view of the vocal cords. A 8-belarusian endotracheal tube was inserted and visualized going through the vocal cords. The stylette was removed. Colorimetric change was visualized on the CO2 meter. Breath sounds were heard in both lung horner equally. The endotracheal tube was placed at 23 cm, measured at the teeth. A chest x-ray was ordered to assess for pneumothorax and verify endotrachealtube placement. Estimated Blood Loss: 0 The patient tolerated the procedure well and there were no complications. Yaw Roldan MD Aug 01, 2016 05:59
[2016-08-01 06:03] LABS: BICARBONATE 21.1 MEQ/L (21.0-32.0); POTASSIUM 3.8 MEQ/L (3.5-5.1)
--- NOTE | 2016-08-01 06:30 | RADRPT ---
EXAM DATE/TIME: 08/01/2016 05:57 [facility] COMPARISON: CHEST SINGLE AP, July 31, 2016, 8:36. INDICATIONS : Respiratory failure. Status post intubation.. MEDICAL HISTORY : None. SURGICAL HISTORY : None. ENCOUNTER: Subsequent ACUITY: 1 week PAIN SCORE: Non-responsive. LOCATION: Bilateral chest FINDINGS: A single AP semierect view of the chest was obtained and demonstrates interval placement of endotrach eal tube with the tip approximately 4-5 cm above the kari. The nasogastric tube remains in place wi th tip in the stomach. There's been a mild interval decrease in the alveolar infiltrates in the perih ilar regions and both lung bases. The left hemidiaphragm remains obscured. The costophrenic angles ar e blunted. The heart size appears mildly prominent. There are multiple overlying electrocardiogram le ads and oxygen tubing. CONCLUSION: 1. Interval placement of endotracheal tube. 2. Mild improvement in pulmonary opacities most consistent with pulmonary edema. Sandor Holt MD on August 01, 2016 at 6:26 Board Certified Radiologist. This report was verified electronically.
[2016-08-01] MEDS ORDERED: PHENYLEPHRINE HCL 10 MG/ML VIAL ONE (07:13)
[2016-08-01] MEDS: INSULIN NovoLIN REGULAR SUPPLEMENTAL SCALE SQ SCH ×4 (07:17→21:32)
[2016-08-01] MEDS ORDERED: LIDOCAINE HCL 2% 100 MG/5 ML SYRINGE IV PUSH ONE (08:15)
[2016-08-01] MEDS ORDERED: AMIODARONE INJ 900 MG in D5W 500 ML (EXCEL BAG) 482 ML IV SCH (08:15)
[2016-08-01] MEDS ORDERED: AMIODARONE INJ 150 MG in DEXTROSE 5% IN WATER 100ML INJ 97 ML IV ONE ×2 (08:15)
[2016-08-01] MEDS ORDERED: DIGOXIN 0.5 MG/2 ML VIAL IV PUSH ONE (08:15)
[2016-08-01] MEDS ORDERED: CHLOROTHIAZIDE SOD 500 MG VIAL IV ONE (08:15)
[2016-08-01] MEDS ORDERED: BUMETANIDE INJ 1 MG/4 ML VIAL IV PUSH ONE (08:15)
--- NOTE | 2016-08-01 09:41 | HHI.CCPN ---
Subjective Remarks/Hospital Course Patient is a 71-year-old male with only known past medical history of tobacco abuse and a possible history of PE in 2011 aas per emergency department notes was brought to the [place] ED for altered mental status. Apparently patient's roommate found him unresponsive in the morning and after he came back from work patient was still in the same condition not responsive. EMS was called patient was found hypotensive, hypoxemic and given a liter bolus which improved the blood pressure. In the emergency department patient had a GCS of 8. He had a fever 101.1 tachycardic and heart rate 150s. Patient was given additional fluid boluses and was intubated by Dr. Oliver for airway protection. Chest x-ray was unremarkable lab work showed a hemoglobin of 4.1 white count of 13, lactic acid of 6.2 BUN of 16 creatinine of 2.7. For possible sepsis he was given vancomycin and Zosyn. A total of 4 units of PRBC had been ordered and GI consult had been requested. History of Hemoccult was positive. Troponin was slightly elevated could be demand ischemia in renal failure I evaluated the patient in the ED. He appears chronically ill, dishevelled. CT of the head and chest abdomen pelvis is pending at this time. Dr.Al Gastelum with GI had been consulted. IV Protonix gtt. Start Cardizem bolus and drip for A fib with RVR 07/27 Patient is sedated with Versed , fentanyl and intubated. On Protonix drip and Cardizem drip 2mg/hr. Afebrile. Hgb 8.5 this morning from 4.4 yesterday. s/ p transfusion 4units PRBC. 07/28 Patient remains intubated and sedated with fentanyl. Remains on Protonix drip. Hgb 8.0 this morning, He was placed on Amio drip overnight for Afib with RVR . On Bicarb drip. 07/29: patient extubated yesterday and from pulmonary standpoint, doing much better. however, remains on protonix drip and plan for scope today or tomorrow. hgb stable, but wbc significantly elevated this AM. Hypernatremia/ hyperchloremia/hypokalemia persists despite aggressive free water and K replacements. Cr slightly improved. Cultures NGTD. knee aspirate consistent with acute gout flair. 6/10: reconsulted emergently overnight and intubated overnight for acute hypoxemia with spo2 60s% and altered mental status. this morning, awake and alert, but in afib RVR, hypotensive. I performed bedside critical care echo which demonstrated severe global LV hypokinesis, preserved RV size and function , RVSP ~40 by TR jet. moderate aortic insufficiency persists, and dilated IVC at 2.6cm without respiratory variation. trace pericardial effusion, very small bilateral pleural effusions at the bases. CXR demonstrates persistent pulmonary congestion. While I was evaluating and managing the patient, he converted for a short time back to NSR with HR in the 60s. Repeat bedside critical care echo demonstrated an improved LV contractility and what appears to be only mild hypokinesis vs. almost completely resolved function. the remainder of the echo findings were unchanged. The patient had good diuresis yesterday. Objective Vital Signs Date Time Temp Pulse Resp B/P Pulse Ox O2 Delivery O2 Flow Rate FiO2 08/01/16 07:50 100 50 08/01/16 06:00 74 08/01/16 04:00 97.0 46 103/55 07/31/16 23:41 Venturi Mask 6.00 Intake and Output 07/31/16 07/31/16 08/01/16 08:00 16:00 00:00 Intake Total 388 ml 277 ml 60 ml Output Total 600 ml 2050 ml 900 ml Balance -212 ml -1773 ml -840 ml Result Diagram: 08/01/16 0508 08/01/16 0508 Other Results Laboratory Tests Test 08/01/16 05:30 Blood Gas Puncture Site LT BRACHIAL Blood Gas Patient Temperature 98.6 Blood Gas HCO3 18 mmol/L (22-26) Blood Gas Base Excess -7.2 mmol/L (-2-2) Blood Gas Oxygen Saturation 98 % (90-100) Arterial Blood pH 7.29 (7.380-7.420) Arterial Blood Partial 39 mmHg (38-42) Pressure CO2 Arterial Blood Partial 265 mmHg Pressure O2 (61-120) Arterial Blood Oxygen Content 13.6 Vol % (12.0-20.0) Arterial Blood 1.1 % (0-4) Carboxyhemoglobin Arterial Blood Methemoglobin 0.9 % (0-2) Blood Gas Hemoglobin 9.4 G/DL (12.0-16.0) Oxygen Delivery Device VENTILATOR Blood Gas Ventilator Setting COMMENT Blood Gas Inspired Oxygen 100 % Imaging Last 24 hours Impressions Chest X-Ray 08/01/16 0000 Signed Impressions: Service Date/Time: Monday, August 01, 2016 05:57 - CONCLUSION: 1. Interval placement of endotracheal tube. 2. Mild improvement in pulmonary opacities most consistent with pulmonary edema. Sandor Holt MD Objective Remarks P/E GENERAL: Chronically ill-appearing disheveled male, critically ill, intubated, sedated. SKIN: Warm and dry. HEAD: Atraumatic. Normocephalic. EYES: Pupils equal and round. ENT: Oral mucosa is moist NECK: Trachea midline. JVD above the level of the jaw. CARDIOVASCULAR: tachycardic rate, irregularly irregular rhythm. RESPIRATORY: intubated, PRVC 50% fio2, peep 10. bibasilar crackles. GASTROINTESTINAL: Abdomen soft, non-tender, nondistended. no guarding. MUSCULOSKELETAL: No obvious deformities. No clubbing. No cyanosis. No edema. NEUROLOGICAL: RASS -2. follows commands. no focal deficits. A/P Assessment and Plan Assessment: 71yM with multiple medical comorbidities presenting with acute volume overload, congestive heart failure previously with preserved EF, sepsis, GI bleed, multiple DVTs, Acute kidney injury, and now recurrent acute hypoxic respiratory failure. He remains very critically ill, and not only off pathway, but declining despite aggressive care. From my evaluation, it appears that the patient is still significantly volume overloaded, despite aggressive diuresis and worsening tammy. Also, it appears that his ventricular function is significantly worse in an atrial tachycardia as opposed to sinus rhythm, and this may be causing not only much of his hypotension but also could contribute a large piece to his hypoxia and pulmonary edema. For multiple reasons, I think gnosticism of sinus rhythm in this patient is paramount to improving his cardiopulmonary function. He also has known DVTs, and certainly a PE could cause hypotension and hypoxia. The preserved RV size and function with only moderately elevated PA pressures would argue against a large clinically significant PE. Unfortunately, we cannot perform pulmonary angiography with his acute kidney injury as the risks are too high. He certainly needs anticoagulation, but with recent GI bleed, he is currently contra-indicated. I am worried given his age and comorbidities, along with his acute illnesses, he may not survive this hospital stay. NEURO: Acute encephalopathy most likely metabolic- resolving. Previous CVA with encephalomalacia -CT head shows old infarcts without any acute findings, -EEG 07/27: Diffuse Encephalopathy -UDS + Benzos, cannabinoids. -clinically improving. avoid benzos. - propofol/fentanyl for goal RASS -2. RESP: Acute hypoxemic respiratory failure- worsening. Acute COPD exacerbation Tobacco abuse Pulmonary Edema -wean fio2 for goal spo2 > 92% -DuoNeb every 6 hours and when necessary -Taper IV steroids. - does not meet SBT criteria today given his hemodynamic instability and recent intubation. will consider tomorrow if he improves. CV: Septic and hypovolemic shock - resolved. Atrial fibrillation with RVR Lactic acidosis ..resolved Elevated trop -Monitor HR and BP keep MAP>65mmHg - echo 07/27 showed EF 50-55%, no RWMA, cards is following- Dr. Banda - Critical care echo 08/01 with significantly depressed EF when in atrial tachycardia. - trops downtrending. however, given acute change, will recheck cardiac enzymes today. -Patient is not a candidate for ASA or AC due to GI bleed. will check with GI about possibly restarting anticoagulation. -hold his PO amio. restart iv amio infusion given his hemodynamically significant afib. also give 1 time dose lidocaine 100mg iv. aggressively replace electrolytes, 2gm mgso4 today. -will place cvl and arterial line and monitor CVP. -will need aggressive forced diuresis despite TAMMY, as described below. GI: GI bleed 3.4 cm infrarenal AAA -s/p Transfuse 4U PRBC.07/26 -GI is following- Dr. Callahan. endoscopy with esophageal mass, biopsy path pending. -Continue with tube feeds- Nepro @40ml/hr -Continue IV PPI -Coace and Senna for bowel regimen. -No intervention needed for AAA at this time : Acute kidney injury - worsening Hypernatremia Hypokalemia Hyperchloremia Acute Intravascular Volume overload Pulmonary Edema -Monitor renal function , I/O's, electrolytes replacement as needed. Avoid nephrotoxins -CT abd/pelvis: absence right kidney, no hydro on left. -start Bumex 2mg iv bolus, drip 1mg/hr. diuril 500mg iv x 1. serial bmp's. goal at least net negative 2-3L/24h. -given severe hypernatremia, will start gentle free water replacement per tube. will avoid iv free water if at all possible, as patient has a history over the last few days of going into severe hypoxic pulmonary edema with any iv free water. ID: Sepsis Strep pneumonia bacteremia H. flu pneumonia -Continue Rocephin 2gm iv q24h. ID is following -07/26 BC : GPC, stre pneumonia 4 bottles - 07/27 sputum: H. Flu -daily CBC HEME: Severe anemia requiring transfusion GI bleed Gout DVT -s/p Transfusion 4 units PRBC 07/26 -Monitor CBC, CMP, coags -colchicine 1.2mg po x 1. -u/s with evidence of DVT. However, patient unable to be anticoagulated at this time given his active GI bleeding. will need anticoagulation at some point. ENDO: -Electrolyte replacement per protocol, place on medium SSI for glycemic control; -ORTHO - Seen by Ortho s/p left Knee aspiration, consistent with acute gout flair. PROPH: -Bilateral lower extremity SCDs/ANGELITO. PPI. chemical DVT prophylaxis contraindicated due to GI bleed - Doppler US LLE showed DVT LLE. Patient is at high risk of bleeding from anticoagulation given severe anemia with Hgb 4.4 on arrival. LINES: -will place arterial line and central line today for central pressure monitoring and beat to beat hemodynamic monitoring. -heike. Dispo: remain in the ICU. He is significantly worse than even a few days ago. much more critically ill. Critical Care time: 92 minutes, exclusive of separately billable procedures. Matt Martinez MD Aug 01, 2016 09:41
[2016-08-01] MEDS ORDERED: PROPOFOL 1000 MG/100 ML INJ 100 ML IV SCH (09:45)
[2016-08-01] MEDS ORDERED: fentaNYL DRIP 250 ML IV SCH (09:45)
--- NOTE | 2016-08-01 10:03 | RADRPT ---
EXAM DATE/TIME: 08/01/2016 08:57 [facility] COMPARISON: CHEST SINGLE AP, August 01, 2016, 5:57. INDICATIONS : Evaluate for central line placement. MEDICAL HISTORY : None. SURGICAL HISTORY : None. ENCOUNTER: Subsequent ACUITY: 1 day PAIN SCORE: Non-responsive. LOCATION: Bilateral chest FINDINGS: ET tube, nasogastric tube and central venous catheter are in good position. Lungs are hyperinflated. Minimal bibasilar parenchymal changes are noted, improved in the interval. Cardiac size is more ap propriate. CONCLUSION: 1. Support apparatus remains in good position. 2. Central line in good position without pneumothorax. 3. Moderate hyperinflation persists. Henry Arana MD FACR on August 01, 2016 at 9:56 Board Certified Radiologist. This report was verified electronically.
[2016-08-01] MEDS: CHLORHEXIDINE 0.12% (ORAL KIT) 15 ML CUP MT SCH ×2 (10:13→21:36)
[2016-08-01] MEDS: AMIODARONE INJ 450 MG in D5W (EXCEL BAG) 241 ML IV SCH ×2 (10:14→18:26)
[2016-08-01] MEDS: MAGNESIUM SULFATE 1 GM PREMIX 100 ML IV SCH ×2 (10:15→11:27)
[2016-08-01] MEDS: VASOPRESSIN 40 U/D5W 100 ML Hypotension, do NOT titrate (enter ordered rate) IV SCH ×4 (10:15→21:34)
[2016-08-01] MEDS: DOCUSATE SODIUM 100 MG/10 ML UDC PO SCH ×2 (10:16→21:35)
[2016-08-01] MEDS: PANTOPRAZOLE SODIUM 40 MG VIAL IV PUSH SCH (10:16)
[2016-08-01] MEDS: SENNOSIDES SYRUP 8.8 MG/5 ML CUP PO SCH (10:16)
[2016-08-01] MEDS ORDERED: TERBUTALINE INJ 1 MG/ML AMP SQ PRN (11:00)
[2016-08-01] MEDS ORDERED: PHENYLEPHRINE 40 MG/D5W 496 ML ADMIX IV SCH ×2 (11:00)
[2016-08-01] MEDS ORDERED: HYDROCORTISONE SOD SUCCINATE 100 MG VIAL IV PUSH ONE (11:15)
[2016-08-01] MEDS ORDERED: ALBUMIN HUMAN 25% 25 GM/100 ML BAGP IV ONE (11:23)
[2016-08-01] MEDS: FREE WATER G-TUBE SCH ×2 (11:27→18:00)
[2016-08-01] MEDS: BUMETANIDE INJ 100 ML IV SCH (11:28)
--- NOTE | 2016-08-01 11:29 | HHI.NPPN ---
Subjective General Problems: Hypotension, Mebatolic Acidosis Renal Failure: Acute History of Present Illness 71 y/o male who was brought in unresponsive by his roommate found him. Patient does have a hx of smoking and previous ER visit for INR evaluation. He was on Coumadin and Lovenox for DVT in 2011. On arrival he was febrile, tachycardic in A fib RVR, and hypotensive. Additional Remarks Patient remain intubated and sedated, on the pressors. Review of Systems General General Remarks Cannot take, intubated and sedated. Musculoskeletal MS Remarks left knee Objective Data Data 07/31/16 08/01/16 19:00 07:00 Intake Total 277 ml 60 ml Output Total 2050 ml 900 ml Balance -1773 ml -840 ml Intake Oral 0 ml IV Total 277 ml Other 60 ml Output Urine Total 2050 ml 900 ml # Bowel Movements 0 Vital Signs Date Time Temp Pulse Resp B/P Pulse Ox O2 Delivery O2 Flow Rate FiO2 08/01/16 07:50 100 50 08/01/16 06:00 74 08/01/16 06:00 50 08/01/16 05:53 100 50 08/01/16 05:00 100 08/01/16 04:20 99 100 08/01/16 04:00 97.0 104 46 103/55 84 08/01/16 04:00 104 08/01/16 02:00 74 08/01/16 00:00 75 08/01/16 00:00 97.8 75 24 111/53 99 07/31/16 23:41 96 Venturi Mask 6.00 40 07/31/16 22:00 93 07/31/16 21:00 100 Partial Non-Rebreather 12.00 07/31/16 20:00 97.9 77 28 109/53 99 07/31/16 20:00 77 07/31/16 19:58 98 Partial Rebreather 12.00 07/31/16 19:00 99 Non-Rebreather 15.00 100 07/31/16 18:30 86 Non-Rebreather 15.00 07/31/16 18:00 91 Partial Non-Rebreather 15.00 07/31/16 18:00 95 07/31/16 16:08 92 Venturi Mask 6.00 50 07/31/16 16:00 98.2 80 31 118/60 88 07/31/16 16:00 80 07/31/16 15:45 80 07/31/16 15:00 88 Venturi Mask 6.00 07/31/16 14:00 122 07/31/16 12:00 133 07/31/16 12:00 98.7 133 27 118/56 100 -: 08/01/16 0508 08/01/16 0508 Tubes & Lines: [place] Drip Comment Protonix , amiodarone Physical Exam General Appearance: Malnourished Appearance Remarks Intubated and sedated. Throat Throat Exam: Oral Mucosa [place] & Moist Pulmonary Resp Exam: Crackles, Rhonchi, Sputum, Decreased Bases, Diminished Breath Sounds , Poor Inspiratory Effort Cardiology CV Exam: Good Perfusion, Irregular, Arrhythmia Gastrointestinal/Abdomen GI Exam: Soft, Non-Tender, Bowel Sounds Present Musculoskeletal MS Exam: Joints Intact, Normal Tone Integumentary Skin Exam: Clear, Warm, Dry, Intact Extremeties Extremities Exam: Moderate Edema, Pitting Edema, Dependent Edema Neurologic Neuro Exam: Unresponsive, Sedated Assessment/Plan Discussed Condition With: Patient Assessment Summary: TAMMY/Acute Renal Failure Problem List: (1) Acute kidney failure Plan: in a patient with no labs for comparison TAMMY due to intravascular volume depletion and sepsis with hypotension; may have progressed to ATN 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, no indication of surgical removal renal function is worse today he is non oliguric On Bumex infusion. BP is low, CXR showing worsening edema. Need more diuresis. Creatinine increasing, most likely has ATN from low BP. (2) Severe anemia Plan: Hb improved, Hemoccult positive, see below s/p EGD/colonoscopy , 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 also microcytic anemia, slight iron deficiency avoid Venofer in light of sepsis (3) Septic shock Plan: ID following 4/4 blood cultures are bottles positive, sputum culture also positive he is on vancomycin and Zosyn also has gout in left knee repeat blood cultures are negative to date source suspected Pneumonia , however he may have septic joint, s/p aspiration, may require surgical I&D with arthrotomy by ortho, they are following legionella antigen in urine is negative (4) Elevated troponin Plan: possibly due to demand ischemia from A fib RVR, sepsis cardiology has evaluated, who recommend treat underlying cause (5) Acute respiratory failure Plan: on BiPap needs diuresis (6) Hypernatremia Plan: improved stop D5W, free water via NG tube when off BiPap follow metabolic profile (7) GI (gastrointestinal bleed) Plan: GI following, no GI bleeding on scope 07/30 on Protonix gtt follow Hb (8) Atrial fibrillation with rapid ventricular response Plan: back on amiodarone gtt, tachycardic titrate to effectiveness Problem Qualifiers (1) Acute kidney failure: Qualified Code: N17.9 - Acute renal failure, unspecified acute renal failure type (2) Acute respiratory failure: Qualified Code: J96.00 - Acute respiratory failure, unspecified whether with hypoxia or hypercapnia April Corrales MD Aug 01, 2016 11:28
[2016-08-01 11:35] LABS: BLOOD GAS BASE EXCESS -6.7 mmol/L (-2-2); BLOOD GAS CARBOXYHEMOGLOBIN 1.4 % (0-4); BLOOD GAS HCO3 18 mmol/L (22-26); BLOOD GAS METHEMOGLOBIN 0.9 % (0-2); BLOOD GAS O2 HGB SATURATION 95 % (90-100); BLOOD GAS OXYGEN CONTENT 13.3 Vol % (12.0-20.0); BLOOD GAS PCO2 34 mmHg (38-42); BLOOD GAS PO2 101 mmHg (61-120); BLOOD GAS TOTAL HGB 9.8 G/DL (12.0-16.0); CRITICAL VALUE NO; FIO2 45 %; OXYGEN DEVICE VENTILATOR; TEMP CORR TO 98.6; VENT SETTINGS PRVC/AC
[2016-08-01 11:36] LABS: DRAW SITE ART LINE; STAT NO
[2016-08-01 12:45] LABS: BICARBONATE 18.6 MEQ/L (21.0-32.0); MAGNESIUM 3.3 MG/DL (1.5-2.5); POTASSIUM 3.7 MEQ/L (3.5-5.1)
[2016-08-01] MEDS ORDERED: DEXTROSE 50% IN WATER 50 ML VIAL(D50) IV PUSH PRN (13:00)
--- NOTE | 2016-08-01 13:38 | HHI.GIFU ---
Subjective Remarks Intubated sedated on vasopressors Objective Vitals I&O Vital Signs Date Time Temp Pulse Resp B/P Pulse Ox O2 Delivery O2 Flow Rate FiO2 08/01/16 11:27 100 45 08/01/16 07:50 100 50 08/01/16 06:00 74 08/01/16 06:00 50 08/01/16 05:53 100 50 08/01/16 05:00 100 08/01/16 04:20 99 100 08/01/16 04:00 97.0 104 46 103/55 84 08/01/16 04:00 104 08/01/16 02:00 74 08/01/16 00:00 75 08/01/16 00:00 97.8 75 24 111/53 99 07/31/16 23:41 96 Venturi Mask 6.00 40 07/31/16 22:00 93 07/31/16 21:00 100 Partial Non-Rebreather 12.00 07/31/16 20:00 97.9 77 28 109/53 99 07/31/16 20:00 77 07/31/16 19:58 98 Partial Rebreather 12.00 07/31/16 19:00 99 Non-Rebreather 15.00 100 07/31/16 18:30 86 Non-Rebreather 15.00 07/31/16 18:00 91 Partial Non-Rebreather 15.00 07/31/16 18:00 95 07/31/16 16:08 92 Venturi Mask 6.00 50 07/31/16 16:00 98.2 80 31 118/60 88 07/31/16 16:00 80 07/31/16 15:45 80 07/31/16 15:00 88 Venturi Mask 6.00 07/31/16 14:00 122 I/O 07/31/16 07/31/16 07/31/16 08/01/16 08/01/16 08/01/16 07:00 15:00 23:00 07:00 15:00 23:00 Intake Total 388 ml 277 ml 60 ml 528 ml Output Total 600 ml 2050 ml 900 ml 600 ml Balance -212 ml -1773 ml -840 ml -72 ml Intake Oral 0 ml IV Total 388 ml 277 ml 528 ml Other 60 ml Output Urine Total 600 ml 2050 ml 900 ml 600 ml # Bowel Movements 1 0 3 Laboratory Laboratory Tests Test 08/01/16 08/01/16 08/01/16 08/01/16 05:08 05:30 10:00 11:25 White Blood Count 13.4 Red Blood Count 4.36 Hemoglobin 11.1 Hematocrit 35.1 Mean Corpuscular Volume 80.6 Mean Corpuscular Hemoglobin 25.6 Mean Corpuscular Hemoglobin 31.8 Concent Red Cell Distribution Width 26.2 Platelet Count 215 Mean Platelet Volume 8.5 Sodium Level 144 Potassium Level 3.8 Chloride Level 105 Carbon Dioxide Level 21.1 Anion Gap 18 Blood Urea Nitrogen 56 Creatinine 2.52 Estimat Glomerular Filtration 25 Rate Random Glucose 235 Calcium Level 9.2 B-Type Natriuretic Peptide 1942 Blood Gas Puncture Site LT BRACHIAL ART LINE Blood Gas Patient Temperature 98.6 98.6 Blood Gas HCO3 18 18 Blood Gas Base Excess -7.2 -6.7 Blood Gas Oxygen Saturation 98 95 Arterial Blood pH 7.29 7.34 Arterial Blood Partial 39 34 Pressure CO2 Arterial Blood Partial 265 101 Pressure O2 Arterial Blood Oxygen Content 13.6 13.3 Arterial Blood 1.1 1.4 Carboxyhemoglobin Arterial Blood Methemoglobin 0.9 0.9 Blood Gas Hemoglobin 9.4 9.8 Oxygen Delivery Device VENTILATOR VENTILATOR Blood Gas Ventilator Setting COMMENT PRVC/AC Blood Gas Inspired Oxygen 100 45 Total Creatine Kinase 93 Troponin I 2.33 Test 08/01/16 11:45 Sodium Level 138 Potassium Level 3.7 Chloride Level 103 Carbon Dioxide Level 18.6 Anion Gap 16 Blood Urea Nitrogen 60 Creatinine 2.31 Estimat Glomerular Filtration 28 Rate Random Glucose 321 Calcium Level 8.6 Magnesium Level 3.3 Date/Time Procedure Status Source Growth 07/30/16 01:30 Aerobic Blood Culture - Preliminary Resulted Blood Peripheral NO GROWTH IN 2 DAYS 07/30/16 01:30 Anaerobic Blood Culture - Preliminary Resulted Blood Peripheral NO GROWTH IN 2 DAYS 07/28/16 12:40 Gram Stain - Final Complete Wound Knee 07/28/16 12:40 Wound Culture - Final Complete Wound Knee NO GROWTH IN 72 HRS.--AEROBICALLY OR ... 07/27/16 16:11 Aerobic Blood Culture - Final Complete Blood Peripheral NO GROWTH IN 5 DAYS 07/27/16 16:11 Anaerobic Blood Culture - Final Complete Blood Peripheral NO GROWTH IN 5 DAYS Imaging Last 48 hours Impressions Chest X-Ray 08/01/16 0000 Signed Impressions: Service Date/Time: Monday, August 01, 2016 05:57 - CONCLUSION: 1. Interval placement of endotracheal tube. 2. Mild improvement in pulmonary opacities most consistent with pulmonary edema. Sandor Holt MD Chest X-Ray 07/31/16 0000 Signed Impressions: Service Date/Time: Sunday, July 31, 2016 08:36 - CONCLUSION: Slight improvement within the right upper lobe component of the bilateral pulmonary infiltrates. Hector Garcia Jr., MD Physical Exam CHEST: coarse CARDIAC: irregular HR ABDOMEN: Soft, nondistended, nontender; no hepatosplenomegaly; bowel sounds are present in all four quadrants. EXTREMITIES: No clubbing, cyanosis, edema right hand, BLE SKIN: Normal; no rash; no jaundice. NUTRITION MANAGER: Intubated sedated Assessment and Plan Plan ASSESSMENT - anemia - hgb 4.4 on admission, s/p PRBC. 9.9. No signs bleeding. Pt denies melena, hematemesis, or other bleeding. s/p colon/EGD --> circumferenctioal masses mid third esophagus, lower third esophagus, GE junction; colonoscopy incomplete due to presence stool. PLAN - await BX - MORIAH - monitor HH - transfuse PRN Okay to use heparin if needed for anticoagulation while closely monitoring her vitals and blood count Ishmael Peñaloza MD Aug 01, 2016 13:38
--- NOTE | 2016-08-01 13:40 | PD.CARD.PN ---
Subjective Subjective Remarks I was called by Dr. Garcia as I was covering for Dr. Banda. The chart was reviewed and I spoke with Dr. Garcia. The patient is intubated and sedated and unresponsive. He is on pressors. He is presently in sinus rhythm but has had paroxysmal atrial fibrillation. Objective Medications Reviewed Vital Signs / I&O Vital Signs Date Time Temp Pulse Resp B/P Pulse Ox O2 Delivery O2 Flow Rate FiO2 08/01/16 11:27 100 45 08/01/16 07:50 100 50 08/01/16 06:00 74 08/01/16 06:00 50 08/01/16 05:53 100 50 08/01/16 05:00 100 08/01/16 04:20 99 100 08/01/16 04:00 97.0 104 46 103/55 84 08/01/16 04:00 104 08/01/16 02:00 74 08/01/16 00:00 75 08/01/16 00:00 97.8 75 24 111/53 99 07/31/16 23:41 96 Venturi Mask 6.00 40 07/31/16 22:00 93 07/31/16 21:00 100 Partial Non-Rebreather 12.00 07/31/16 20:00 97.9 77 28 109/53 99 07/31/16 20:00 77 07/31/16 19:58 98 Partial Rebreather 12.00 07/31/16 19:00 99 Non-Rebreather 15.00 100 07/31/16 18:30 86 Non-Rebreather 15.00 07/31/16 18:00 91 Partial Non-Rebreather 15.00 07/31/16 18:00 95 07/31/16 16:08 92 Venturi Mask 6.00 50 07/31/16 16:00 98.2 80 31 118/60 88 07/31/16 16:00 80 07/31/16 15:45 80 07/31/16 15:00 88 Venturi Mask 6.00 07/31/16 14:00 122 I/O 07/31/16 07/31/16 07/31/16 08/01/16 08/01/16 08/01/16 07:00 15:00 23:00 07:00 15:00 23:00 Intake Total 388 ml 277 ml 60 ml 528 ml Output Total 600 ml 2050 ml 900 ml 600 ml Balance -212 ml -1773 ml -840 ml -72 ml Intake Oral 0 ml IV Total 388 ml 277 ml 528 ml Other 60 ml Output Urine Total 600 ml 2050 ml 900 ml 600 ml # Bowel Movements 1 0 3 Physical Exam GENERAL: Intubated/sedated . SKIN: Warm and dry. NECK: JVD normal - less than or equal to 5 cm H20. CARDIOVASCULAR: Regular rate and rhythm without murmurs, gallops, or rubs. RESPIRATORY: Decreased . breath sounds - equal bilaterally. No accessory muscle use. No wheezes, rales or rubs. PERIPHERY: No cyanosis, or edema. Laboratory Laboratory Tests Test 08/01/16 08/01/16 08/01/16 08/01/16 05:08 05:30 10:00 11:25 White Blood Count 13.4 TH/MM3 Red Blood Count 4.36 MIL/MM3 Hemoglobin 11.1 GM/DL Hematocrit 35.1 % Mean Corpuscular Volume 80.6 FL Mean Corpuscular Hemoglobin 25.6 PG Mean Corpuscular Hemoglobin 31.8 % Concent Red Cell Distribution Width 26.2 % Platelet Count 215 TH/MM3 Mean Platelet Volume 8.5 FL Sodium Level 144 MEQ/L Potassium Level 3.8 MEQ/L Chloride Level 105 MEQ/L Carbon Dioxide Level 21.1 MEQ/L Anion Gap 18 MEQ/L Blood Urea Nitrogen 56 MG/DL Creatinine 2.52 MG/DL Estimat Glomerular Filtration 25 ML/MIN Rate Random Glucose 235 MG/DL Calcium Level 9.2 MG/DL B-Type Natriuretic Peptide 1942 PG/ML Blood Gas Puncture Site LT BRACHIAL ART LINE Blood Gas Patient Temperature 98.6 98.6 Blood Gas HCO3 18 mmol/L 18 mmol/L Blood Gas Base Excess -7.2 mmol/L -6.7 mmol/L Blood Gas Oxygen Saturation 98 % 95 % Arterial Blood pH 7.29 7.34 Arterial Blood Partial 39 mmHg 34 mmHg Pressure CO2 Arterial Blood Partial 265 mmHg 101 mmHg Pressure O2 Arterial Blood Oxygen Content 13.6 Vol % 13.3 Vol % Arterial Blood 1.1 % 1.4 % Carboxyhemoglobin Arterial Blood Methemoglobin 0.9 % 0.9 % Blood Gas Hemoglobin 9.4 G/DL 9.8 G/DL Oxygen Delivery Device VENTILATOR VENTILATOR Blood Gas Ventilator Setting COMMENT PRVC/AC Blood Gas Inspired Oxygen 100 % 45 % Total Creatine Kinase 93 U/L Troponin I 2.33 NG/ML Test 08/01/16 11:45 Sodium Level 138 MEQ/L Potassium Level 3.7 MEQ/L Chloride Level 103 MEQ/L Carbon Dioxide Level 18.6 MEQ/L Anion Gap 16 MEQ/L Blood Urea Nitrogen 60 MG/DL Creatinine 2.31 MG/DL Estimat Glomerular Filtration 28 ML/MIN Rate Random Glucose 321 MG/DL Calcium Level 8.6 MG/DL Magnesium Level 3.3 MG/DL Imaging Last 48 hours Impressions Chest X-Ray 08/01/16 0000 Signed Impressions: Service Date/Time: Monday, August 01, 2016 05:57 - CONCLUSION: 1. Interval placement of endotracheal tube. 2. Mild improvement in pulmonary opacities most consistent with pulmonary edema. Sandor Holt MD Chest X-Ray 07/31/16 0000 Signed Impressions: Service Date/Time: Sunday, July 31, 2016 08:36 - CONCLUSION: Slight improvement within the right upper lobe component of the bilateral pulmonary infiltrates. Hector Garcia Jr., MD Assessment and Plan Assessment and Plan Problems: Sepsis Paroxysmal atrial fibrillation Elevated troponinnonspecific DVT this hospital stay with prior PE Hypotension Acute renal failure GI bleed Recommendations: Ideally we would like the patient on anticoagulation but he has contraindications. His hypotension could possibly be pulmonary embolus although after speaking to Dr. Garcia it does not appear he is an adequate candidate for workup of it. Agree with continuation of amiodarone along with supportive care. I have nothing more to add at this point in time. Dr. Banda will be back on Wednesday and available if needed. His prognosis is poor. Drew Doll MD Aug 01, 2016 13:40
[2016-08-01] MEDS: PHENYLEPHRINE HCL 160 MG/D5W 484 ML ADMIX IV SCH ×4 (13:41→21:29)
[2016-08-01] MEDS ORDERED: POTASSIUM CHLORIDE INJ 30 MEQ in SODIUM CHLORIDE 0.9% INJ 100 ML IV ONE (13:45)
[2016-08-01 13:56] LABS: BLOOD GAS VENOUS BASE EXCESS -6.2 mmol/L (-2-2); BLOOD GAS VENOUS HCO3 20 mmol/L (22-26); BLOOD GAS VENOUS O2 CONTENT 6.2 Vol % (9.0-17.0); BLOOD GAS VENOUS O2 HGB SAT 48 % (70-76); BLOOD GAS VENOUS PCO2 47 mmHg (44-48); BLOOD GAS VENOUS PO2 35 mmHg (35-40); BLOOD GAS VENOUS pH 7.25 (7.360-7.400); CRITICAL VALUE YES; FIO2 45 %; OXYGEN DEVICE VENTILATOR; TEMP CORR TO 98.6; VENT SETTINGS PRVC/AC 500/16
[2016-08-01 13:57] LABS: DRAW SITE CENTRAL LINE; STAT NO
[2016-08-01] MEDS ORDERED: HEPARIN-D5W INJ 250 ML IV SCH (14:15)
[2016-08-01] MEDS: cefTRIAXone INJ 2,000 MG in SODIUM CHLORIDE 0.9% INJ 100 ML IV SCH (14:23)
[2016-08-01 14:36] LABS: APTT (PATIENT) 29.4 SEC (24.3-30.1); INTERNATIONAL NORMALIZED RATIO 1.4 RATIO; PROTHROMBIN TIME - PATIENT 15.7 SEC (9.8-11.6)
--- NOTE | 2016-08-01 15:36 | ECHRPT ---
Indication: Shortness of breath CONCLUSIONS Results called to Dr. Martinez. Mildly dilated left ventricle. The left ventricular systolic function is moderately reduced with an estimated ejection fraction in the range of 40-45%. A secundum atrial septal defect versus patent foramen ovale is present. Mild thickening of the mitral valve leaflets. Severe mitral valve regurgitation. Aortic valve sclerosis is present. [id number] aortic valve regurgitation. Mobile vegetation on aortic valve 1.9 x .9 cm Findings consistent with vegetation on the tricuspid valve. There is mild tricuspid valve regurgitation. The pulmonary valve is not well visualized. The inferior vena cava was not well visualized. BP: 107 / 39 HR: 61 Rhythm: MEASUREMENTS (Male / Female) Normal Values Technical Quality:Fair 2D ECHO LV Diastolic Diameter PLAX 5.9 cm 4.2 - 5.9 / 3.9 - 5.3 cm LV Systolic Diameter PLAX 4.9 cm IVS Diastolic Thickness 1.1 cm 0.6 - 1.0 / 0.6 - 0.9 cm LVPW Diastolic Thickness 1.1 cm 0.6 - 1.0 / 0.6 - 0.9 cm LV Relative Wall Thickness 0.4 RV Internal Dim ED PLAX 2.0 cm LVOT Diameter 2.3 cm M-MODE Aortic Root Diameter MM 3.2 cm LA Systolic Diameter MM 3.7 cm LA Ao Ratio MM 1.2 AV Cusp Separation MM 1.4 cm DOPPLER AI Peak Velocity 274.0 cm/s AI Peak Gradient 30.0 mmHg AI Pressure Half Time 142.0 ms LVOT Peak Velocity 120.0 cm/s LVOT Peak Gradient 5.8 mmHg LVOT Velocity Time Integral 17.3 cm LVOT Cardiac Index 2467.9 cm/minm TR Peak Velocity 201.0 cm/s TR Peak Gradient 16.2 mmHg FINDINGS LEFT VENTRICLE Mildly dilated left ventricle. The left ventricular systolic function is moderately reduced with an estimated ejection fraction in the range of 40-45%. RIGHT VENTRICLE Normal right ventricular size and systolic function. LEFT ATRIUM The left atrial size is normal. RIGHT ATRIUM The right atrial size is normal. ATRIAL SEPTUM A secundum atrial septal defect versus patent foramen ovale is present. AORTA The aortic root and proximal ascending aorta are normal in size on limited imaging. MITRAL VALVE Mild thickening of the mitral valve leaflets. Severe mitral valve regurgitation. AORTIC VALVE Aortic valve sclerosis is present. [id number] aortic valve regurgitation. Mobile vegetation on aortic valve 1.9 x .9 cm TRICUSPID VALVE Findings consistent with vegetation on the tricuspid valve. There is mild tricuspid valve regurgitation. PULMONARY VALVE The pulmonary valve is not well visualized. VESSELS The inferior vena cava was not well visualized. PERICARDIUM No pericardial effusion. OTHER FINDINGS IVC 2.6 Drew Doll MD (Electronically Signed) Final Date:01 August 2016 15:35
--- NOTE | 2016-08-01 15:39 | PD.PROCEDR ---
Procedure Note Procedure Central Line Procedure Note Left IJ triple-lumen catheter Diagnosis: Undifferentiated shock Indications: For central pressure monitoring, need for highly potent vasoactive substances Consent: Consent is deemed emergent or medically necessary Anesthesia: 1% lidocaine locally Description of the Procedure: The patient was placed in the supine, mild- Trendelenburg position. The area was prepped and draped sterilely. A 19g needle was inserted under negative pressure aspiration and dark venous blood was obtained. A guidewire was inserted easily without resistance. A small incision was made using a #11 blade. Using a modified Seldinger technique, the dilator and 7 [place], 20 cm catheter were advanced over the guidewire without resistance. All ports were aspirated and flushed, and had brisk blood return. The line was secured at 20 cm at the skin using 2-0 silk interrupted sutures. A Biopatch and Transparent sterile dressing were applied. There were no immediate complications noted. There was minimal EBL. The patient tolerated the procedure well. Ultrasound Guidance: Ultrasound guidance was used to identify the left internal jugular vein. The vascular anatomy was normal. The vessel was cannulated under direct, real-time ultrasound visualization. After placement of the guidewire, confirmation of the guidewire in the lumen of the vessel was made using ultrasound visualization, before dilation of the tract. A Chest x-ray has been ordered. I personally performed the procedure. Matt Martinez MD Aug 01, 2016 15:39
--- NOTE | 2016-08-01 15:42 | PD.PROCEDR ---
Procedure Note Procedure Procedure: Arterial Line Placement Left radial arterial line Diagnosis: Undifferentiated shock Indications: Need for beat to beat hemodynamic monitoring Consent: Consent is deemed emergent or medically necessary Description of the Procedure: The left wrist was prepped and draped sterilely. 1% lidocaine was used for local anesthesia. Under direct ultrasound visualization, the left radial artery was identified. The anatomy of the left wrist was normal. Under direct visualization, a needle was advanced into the artery. A 20 gauge, 12 cm catheter was advanced into the artery using a modified Seldinger technique. The catheter was sutured to the skin and a sterile dressing was applied. The catheter was connected to a pressure transducer and an arterial waveform was noted. There were no immediate complications noted. There was minimal EBL. I personally performed the procedure. Matt Martinez MD Aug 01, 2016 15:42
[2016-08-01] MEDS ORDERED: VANCOMYCIN INJ 1,250 MG in SODIUM CHLOR 0.9% 250 ML INJ 250 ML IV ONE (16:00)
--- NOTE | 2016-08-01 16:50 | HHI.IDPN ---
Note Infectious Disease Note ID COVERAGE: Called by Dr. Garcia about patient's deteriorated status. Patient is on the vent. Unresponsive. MAP of approx. 63 on 20 mcg of levophed, 300 of william. plus dobutamine and vasopressin. Minimal urine output. Worsened renal function. 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 Repeat echo shows vegetation on aortic valve and tricuspid valve. Has LLE DVT and non-occlusive thrombus R leg Patient is a 71-year-old male, brought into the hospital after he was found unresponsive. He apparently has a roommate and when he left the morning patient was question asleep or unresponsive. His ROM A went to work and when he came back patient was found in the same position in same location. EMS was called and patient was found to be hypotensive and hypoxic. Patient was given fluid resuscitation and brought into the emergency room. He ended up getting intubated in the emergency room. In the ER he was febrile, and tachycardic. He was given more fluid resuscitation. He was found to have a hemoglobin of 4.4. Creatinine was 2.7, and lactic acid was 6.2. His troponin was elevated. He was in atrial fibrillation with RVR. He was placed on Cardizem and has converted to normal sinus rhythm. Antibiotics Rocephin Vanco dose given. Past Medical History PE Allergies: Coded Allergies: No Known Allergies (Unverified , 07/26/16) Objective Vital Signs Date Time Temp Pulse Resp B/P Pulse Ox O2 Delivery O2 Flow Rate FiO2 08/01/16 15:45 92 50 08/01/16 11:27 100 45 08/01/16 07:50 100 50 08/01/16 06:00 74 08/01/16 06:00 50 08/01/16 05:53 100 50 08/01/16 05:00 100 08/01/16 04:20 99 100 08/01/16 04:00 97.0 104 46 103/55 84 08/01/16 04:00 104 08/01/16 02:00 74 08/01/16 00:00 75 08/01/16 00:00 97.8 75 24 111/53 99 07/31/16 23:41 96 Venturi Mask 6.00 40 07/31/16 22:00 93 07/31/16 21:00 100 Partial Non-Rebreather 12.00 07/31/16 20:00 97.9 77 28 109/53 99 07/31/16 20:00 77 07/31/16 19:58 98 Partial Rebreather 12.00 07/31/16 19:00 99 Non-Rebreather 15.00 100 07/31/16 18:30 86 Non-Rebreather 15.00 07/31/16 18:00 91 Partial Non-Rebreather 15.00 07/31/16 18:00 95 . 07/31/16 07/31/16 08/01/16 15:00 23:00 07:00 Intake Total 277 ml 60 ml Output Total 2050 ml 900 ml Balance -1773 ml -840 ml Intake Oral 0 ml IV Total 277 ml Other 60 ml Output Urine Total 2050 ml 900 ml # Bowel Movements 0 Laboratory Tests Test 07/31/16 08/01/16 04:53 05:08 White Blood Count 14.9 TH/MM3 13.4 TH/MM3 Red Blood Count 3.99 MIL/MM3 4.36 MIL/MM3 Hemoglobin 9.9 GM/DL 11.1 GM/DL Hematocrit 31.5 % 35.1 % Mean Corpuscular Volume 79.0 FL 80.6 FL Mean Corpuscular Hemoglobin 24.8 PG 25.6 PG Mean Corpuscular Hemoglobin 31.4 % 31.8 % Concent Red Cell Distribution Width 25.7 % 26.2 % Platelet Count 176 TH/MM3 215 TH/MM3 Mean Platelet Volume 8.8 FL 8.5 FL Laboratory Tests Test 07/31/16 07/31/16 08/01/16 08/01/16 04:53 04:54 05:08 10:00 Sodium Level 145 MEQ/L 144 MEQ/L Potassium Level 3.7 MEQ/L 3.8 MEQ/L Chloride Level 110 MEQ/L 105 MEQ/L Carbon Dioxide Level 23.0 MEQ/L 21.1 MEQ/L Anion Gap 12 MEQ/L 18 MEQ/L Blood Urea Nitrogen 43 MG/DL 56 MG/DL Creatinine 2.00 MG/DL 2.52 MG/DL Estimat Glomerular Filtration 33 ML/MIN 25 ML/MIN Rate Random Glucose 115 MG/DL 235 MG/DL Calcium Level 8.4 MG/DL 9.2 MG/DL Magnesium Level 2.1 MG/DL B-Type Natriuretic Peptide 1534 PG/ML 1942 PG/ML Total Creatine Kinase 93 U/L Troponin I 2.33 NG/ML Test 08/01/16 11:45 Sodium Level 138 MEQ/L Potassium Level 3.7 MEQ/L Chloride Level 103 MEQ/L Carbon Dioxide Level 18.6 MEQ/L Anion Gap 16 MEQ/L Blood Urea Nitrogen 60 MG/DL Creatinine 2.31 MG/DL Estimat Glomerular Filtration 28 ML/MIN Rate Random Glucose 321 MG/DL Calcium Level 8.6 MG/DL Magnesium Level 3.3 MG/DL Microbiology Date/Time Procedure Status Source Growth 07/30/16 01:25 Aerobic Blood Culture - Preliminary Resulted Blood Peripheral NO GROWTH IN 2 DAYS 07/30/16 01:25 Anaerobic Blood Culture - Preliminary Resulted Blood Peripheral NO GROWTH IN 2 DAYS 07/30/16 01:30 Aerobic Blood Culture - Preliminary Resulted Blood Peripheral NO GROWTH IN 2 DAYS 07/30/16 01:30 Anaerobic Blood Culture - Preliminary Resulted Blood Peripheral NO GROWTH IN 2 DAYS Imaging Chest X-Ray 08/01/16 0000 Signed Impressions: Service Date/Time: Monday, August 01, 2016 08:57 - CONCLUSION: 1. Support apparatus remains in good position. 2. Central line in good position without pneumothorax. 3. Moderate hyperinflation persists. Henry Arana MD FACR Chest X-Ray 08/01/16 0000 Signed Impressions: Service Date/Time: Monday, August 01, 2016 05:57 - CONCLUSION: 1. Interval placement of endotracheal tube. 2. Mild improvement in pulmonary opacities most consistent with pulmonary edema. Sandor Holt MD Chest X-Ray 07/31/16 0000 Signed Impressions: Service Date/Time: Sunday, July 31, 2016 08:36 - CONCLUSION: Slight improvement within the right upper lobe component of the bilateral pulmonary infiltrates. Hector Garcia Jr., MD Chest X-Ray 07/28/16 0000 Signed Impressions: Service Date/Time: Thursday, July 28, 2016 09:35 - CONCLUSION: 1. The side port of the gastric tube is approximately 5 cm above the level of the diaphragm and needs to be advanced. 2. Persistent dense consolidation left lower lobe. Hector Crawford MD Knee X-Ray 07/27/16 1647 Signed Impressions: Service Date/Time: Wednesday, July 27, 2016 21:30 - CONCLUSION: Intact left knee. Mild osteoarthritis, nonspecific joint effusion and suspected distal quadriceps tendinosis. Josue Dimas MD Hip X-Ray 07/27/16 1647 Signed Impressions: Service Date/Time: Wednesday, July 27, 2016 21:24 - CONCLUSION: No acute bony abnormality demonstrated. No fracture, subluxation or significant joint space narrowing of the left hip. Josue Dimas MD Head CT 07/26/16 1534 Signed Impressions: Service Date/Time: Tuesday, July 26, 2016 16:47 - CONCLUSION: 1. 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 2. No acute intracranial abnormality. David Montes MD Abdomen/Pelvis CT 07/26/16 0000 Signed Impressions: Service Date/Time: Tuesday, July 26, 2016 16:52 - CONCLUSION: 1. Infrarenal abdominal aortic aneurysm measures 3.4 cm. Aneurysmal dilatation right common iliac artery. 2. 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 3. Prominence of the left adrenal gland. David Montes MD Physical Exam GENERAL: On the vent. SKIN: Warm and dry. Mottling diffusely. HEENT: [place] conjunctiva. No petechia or hemorrhage. No scleral icterus. Mucous membranes pink and moist. He is edentulous. NECK: Trachea midline. Supple and not tender, no meningeal signs CARDIOVASCULAR: Regular rate and rhythm. No murmurs, rubs or gallops heard RESPIRATORY: Scattered rhonchi. ABDOMEN: Soft, flat, mildly distended, EXTREMITIES: No clubbing, or cyanosis. Has bilateral pedal edema. His LLE looks bigger than RLE. Mottling of the extremities. NEUROLOGICAL: Intubated. unable to assess. PSYCHIATRIC: Unable to assess. IMPRESSION Sepsis, on admission, due to PNA Pneumococcal bacteremia, Endocarditis. - Sputum with Hemophilus - echo with mod AI and mild MR, valve thickness normal. Valvular lesions on TTE. Respiratory failure, extubated 07/28 Reintubated. Renal insufficiency, Worse. Atrial fib RVR, back in NSR Severe anemia, GIB L knee effusion, has pesudogout, ?with septic joint - C/S negative DVT LLE, non-occlusive thrombus RLE Leukocytosis, WBC still elevated. Possible malignancy in the esophafgus RECOMMENDATION Continue Rocephin to cover the pneumococcus. Agree with Vancomycin dose. Given renal failure will get level for redosing. Solucortef for adrenals. Follow C/S Monitor progress [place] is poor. Arcenio Feliz MD Aug 01, 2016 16:50
[2016-08-01] MEDS: HYDROCORTISONE SOD SUCCINATE 100 MG VIAL IV PUSH SCH ×2 (18:22→21:35)
[2016-08-01 18:59] LABS: BICARBONATE 19.1 MEQ/L (21.0-32.0); POTASSIUM 4.2 MEQ/L (3.5-5.1)
[2016-08-01] MEDS ORDERED: HEPARIN SODIUM - IV 10,000 UNITS/10 ML VIAL IV PRN ×2 (20:15)
[2016-08-01 20:20] LABS: HEMATOCRIT 29.3 % (39.0-51.0)
[2016-08-01 20:23] LABS: REVIEW FLAG FINAL
[2016-08-01 20:41] LABS: APTT (PATIENT) 35.7 SEC (24.3-30.1)
[2016-08-01] MEDS: EPINEPHrine (1:1000) INJ 2 MG in DEXTROSE 5% IN WATER INJ 248 ML IV SCH ×2 (21:29)
[2016-08-02] VITALS (7 sets, daily range): BP systolic 43–95; BP diastolic 28–48; PULSE 61–66; RESP 16; TEMP 98.1–98.9; O2SAT 93–98
[2016-08-02] MEDS ORDERED: cefTRIAXone INJ 2,000 MG in SODIUM CHLORIDE 0.9% INJ 100 ML IV SCH (02:00)
[2016-08-02] MEDS: CHLORHEXIDINE GLUCONATE 2 % 1 PACK (2 CLOTHS) TOP SCH (02:15)
[2016-08-02] MEDS: BUMETANIDE INJ 100 ML IV SCH (06:35)
[2016-08-02] MEDS: HYDROCORTISONE SOD SUCCINATE 100 MG VIAL IV PUSH SCH (06:36)
[2016-08-02] MEDS: EPINEPHrine (1:1000) INJ 2 MG in DEXTROSE 5% IN WATER INJ 248 ML IV SCH ×2 (06:36)
[2016-08-02] MEDS: PHENYLEPHRINE HCL 160 MG/D5W 484 ML ADMIX IV SCH ×2 (06:37)
[2016-08-02] MEDS: NOREPINEPHRINE 4 MG/D5W 250 ML IV SCH ×2 (06:37→08:48)
[2016-08-02 06:56] LABS: BICARBONATE 18.2 MEQ/L (21.0-32.0); MAGNESIUM 2.8 MG/DL (1.5-2.5); POTASSIUM 4.3 MEQ/L (3.5-5.1)
[2016-08-02 07:48] LABS: MEAN CELL VOLUME 82.4 FL (80.0-100.0); MEAN CORPUSCULAR HGB CONC 30.4 % (32.0-36.0); PLATELET COUNT 105 TH/MM3 (150-450); RED CELL DISTRIBUTION WIDTH 24.6 % (11.6-17.2); WHITE BLOOD COUNT 19.8 TH/MM3 (4.0-11.0)
[2016-08-02] MEDS: INSULIN NovoLIN REGULAR SUPPLEMENTAL SCALE SQ SCH ×2 (08:00)
[2016-08-02 08:27] LABS: REVIEW FLAG AUTO DIFF
[2016-08-02] MEDS: DOCUSATE SODIUM 100 MG/10 ML UDC PO SCH (08:47)
[2016-08-02] MEDS: SENNOSIDES SYRUP 8.8 MG/5 ML CUP PO SCH (08:47)
[2016-08-02] MEDS: CHLORHEXIDINE 0.12% (ORAL KIT) 15 ML CUP MT SCH (08:47)
[2016-08-02] MEDS: PANTOPRAZOLE SODIUM 40 MG VIAL IV PUSH SCH (08:47)
[2016-08-02] MEDS: AMIODARONE INJ 450 MG in D5W (EXCEL BAG) 241 ML IV SCH (08:48)
[2016-08-02 09:01] LABS: APTT (PATIENT) 40.7 SEC (24.3-30.1)
[2016-08-02 09:24] LABS: BLOOD GAS BASE EXCESS -13.3 mmol/L (-2-2); BLOOD GAS CARBOXYHEMOGLOBIN 1.1 % (0-4); BLOOD GAS HCO3 14 mmol/L (22-26); BLOOD GAS METHEMOGLOBIN 1.6 % (0-2); BLOOD GAS O2 HGB SATURATION 91 % (90-100); BLOOD GAS OXYGEN CONTENT 10.6 Vol % (12.0-20.0); BLOOD GAS PCO2 44 mmHg (38-42); BLOOD GAS PO2 87 mmHg (61-120); BLOOD GAS TOTAL HGB 8.2 G/DL (12.0-16.0); CRITICAL VALUE YES; OXYGEN DEVICE VENTILATOR; TEMP CORR TO 98.6
[2016-08-02 09:25] LABS: DRAW SITE ART LINE; FIO2 40 %; STAT NO; VENT SETTINGS PRVC/AC 500/16
--- NOTE | 2016-08-02 09:46 | EKG ---
Date Performed: 08/01/2016 Time Performed: 11:07:54 PTAGE: 71 years EKG: Sinus bradycardia. Septal and lateral ST-T changes are nonspecific Borderline ECG NO PREVIOUS TRACING DOCTOR: Pritesh Harrison Interpretating Date/Time 08/02/2016 09:38:10
--- NOTE | 2016-08-02 09:56 | PD.PROCEDR ---
Procedure Note Procedure Procedure: Arterial Line Placement Right axillary arterial line Diagnosis: Refractory shock Indications: Need for beat to beat hemodynamic monitoring Consent: Consent is deemed emergent or medically necessary Description of the Procedure: The right axilla was prepped and draped sterilely. Ultrasound guidance was used to identify the right axillary artery. The vascular anatomy of the right axilla was normal. The pulse was located and under direct ultrasound visualization, a needle was advanced into the artery. A 18 gauge, 16 cm catheter was advanced into the artery using a modified Seldinger technique. The catheter was sutured to the skin and a sterile dressing was applied. The catheter was connected to a pressure transducer and an arterial waveform was noted. There were no immediate complications noted. There was minimal EBL. I personally performed the procedure. Matt Martinez MD Aug 02, 2016 09:56
--- NOTE | 2016-08-02 10:21 | HHI.CCPN ---
Subjective Remarks/Hospital Course Patient is a 71-year-old male with only known past medical history of tobacco abuse and a possible history of PE in 2011 aas per emergency department notes was brought to the [place] ED for altered mental status. Apparently patient's roommate found him unresponsive in the morning and after he came back from work patient was still in the same condition not responsive. EMS was called patient was found hypotensive, hypoxemic and given a liter bolus which improved the blood pressure. In the emergency department patient had a GCS of 8. He had a fever 101.1 tachycardic and heart rate 150s. Patient was given additional fluid boluses and was intubated by Dr. Oliver for airway protection. Chest x-ray was unremarkable lab work showed a hemoglobin of 4.1 white count of 13, lactic acid of 6.2 BUN of 16 creatinine of 2.7. For possible sepsis he was given vancomycin and Zosyn. A total of 4 units of PRBC had been ordered and GI consult had been requested. History of Hemoccult was positive. Troponin was slightly elevated could be demand ischemia in renal failure I evaluated the patient in the ED. He appears chronically ill, dishevelled. CT of the head and chest abdomen pelvis is pending at this time. Dr.Al Gastelum with GI had been consulted. IV Protonix gtt. Start Cardizem bolus and drip for A fib with RVR 07/27 Patient is sedated with Versed , fentanyl and intubated. On Protonix drip and Cardizem drip 2mg/hr. Afebrile. Hgb 8.5 this morning from 4.4 yesterday. s/ p transfusion 4units PRBC. 07/28 Patient remains intubated and sedated with fentanyl. Remains on Protonix drip. Hgb 8.0 this morning, He was placed on Amio drip overnight for Afib with RVR . On Bicarb drip. 07/29: patient extubated yesterday and from pulmonary standpoint, doing much better. however, remains on protonix drip and plan for scope today or tomorrow. hgb stable, but wbc significantly elevated this AM. Hypernatremia/ hyperchloremia/hypokalemia persists despite aggressive free water and K replacements. Cr slightly improved. Cultures NGTD. knee aspirate consistent with acute gout flair. 6/10: reconsulted emergently overnight and intubated overnight for acute hypoxemia with spo2 60s% and altered mental status. this morning, awake and alert, but in afib RVR, hypotensive. I performed bedside critical care echo which demonstrated severe global LV hypokinesis, preserved RV size and function , RVSP ~40 by TR jet. moderate aortic insufficiency persists, and dilated IVC at 2.6cm without respiratory variation. trace pericardial effusion, very small bilateral pleural effusions at the bases. CXR demonstrates persistent pulmonary congestion. While I was evaluating and managing the patient, he converted for a short time back to NSR with HR in the 60s. Repeat bedside critical care echo demonstrated an improved LV contractility and what appears to be only mild hypokinesis vs. almost completely resolved function. the remainder of the echo findings were unchanged. The patient had good diuresis yesterday. 08/02: No improvements overnight. patient remained anuric in multi organ system dysfunction. No evidence of meaningful recovery. cardiac output today < 2LPM and cardiac index < 1. grossly volume overloaded, but remains in refractory mixed cardiogenic/distributive shock. Our 4 vasporessors are maxed out at this point. At this point, this is not a survivable combination of pathologies. I have spoken with the friend and healthcare proxy at bedside and he elects to pursue comfort measures, which after talking with him about Mr. Finley's wishes, I agree is in congruence with what the patient would have wanted. Objective Vital Signs Date Time Temp Pulse Resp B/P Pulse Ox O2 Delivery O2 Flow Rate FiO2 08/02/16 08:00 40 08/02/16 07:48 98 08/02/16 07:00 Mechanical Ventilator 08/02/16 06:00 62 08/02/16 04:00 98.1 16 95/46 48/48 07/31/16 23:41 6.00 Intake and Output 08/01/16 08/01/16 08/02/16 08:00 16:00 00:00 Intake Total 528 ml 2653 ml Output Total 600 ml 195 ml Balance -72 ml 2458 ml Result Diagram: 08/02/16 0730 08/02/16 0415 Other Results Laboratory Tests Test 08/01/16 08/01/16 08/02/16 11:25 13:45 09:18 Blood Gas Puncture Site ART LINE CENTRAL LINE ART LINE Blood Gas Patient Temperature 98.6 98.6 98.6 Blood Gas HCO3 18 mmol/L 14 mmol/L (22-26) (22-26) Blood Gas Base Excess -6.7 mmol/L -13.3 mmol/L (-2-2) (-2-2) Blood Gas Oxygen Saturation 95 % (90-100) 91 % (90-100) Arterial Blood pH 7.34 7.13 (7.380-7.420) (7.380-7.420) Arterial Blood Partial 34 mmHg (38-42) 44 mmHg (38-42) Pressure CO2 Arterial Blood Partial 101 mmHg 87 mmHg Pressure O2 (61-120) (61-120) Arterial Blood Oxygen Content 13.3 Vol % 10.6 Vol % (12.0-20.0) (12.0-20.0) Arterial Blood 1.4 % (0-4) 1.1 % (0-4) Carboxyhemoglobin Arterial Blood Methemoglobin 0.9 % (0-2) 1.6 % (0-2) Blood Gas Hemoglobin 9.8 G/DL 8.2 G/DL (12.0-16.0) (12.0-16.0) Oxygen Delivery Device VENTILATOR VENTILATOR VENTILATOR Blood Gas Ventilator Setting PRVC/AC PRVC/AC 500/16 PRVC/AC 500/16 Blood Gas Inspired Oxygen 45 % 45 % 40 % Venous Blood pH 7.25 (7.360-7.400) Venous Blood Partial Pressure 47 mmHg (44-48) CO2 Venous Blood Partial Pressure 35 mmHg (35-40) O2 Venous Blood HCO3 20 mmol/L (22-26) Venous Blood Oxygen Saturation 48 % (70-76) Venous Blood Oxygen Content 6.2 Vol % (9.0-17.0) Venous Blood Base Excess -6.2 mmol/L (-2-2) Imaging Last 24 hours Impressions Chest X-Ray 08/01/16 0000 Signed Impressions: Service Date/Time: Monday, August 01, 2016 05:57 - CONCLUSION: 1. Interval placement of endotracheal tube. 2. Mild improvement in pulmonary opacities most consistent with pulmonary edema. Sandor Holt MD Objective Remarks P/E GENERAL: Chronically ill-appearing disheveled male, critically ill, intubated, sedated. SKIN: cold and poorly perfused. HEAD: Atraumatic. Normocephalic. EYES: Pupils equal and round. ENT: Oral mucosa is moist NECK: Trachea midline. JVD above the level of the jaw. CARDIOVASCULAR: normal rate, regular rhythm. sinus by tele. RESPIRATORY: intubated, PRVC 50% fio2, peep 10. bibasilar crackles. GASTROINTESTINAL: Abdomen soft, non-tender, nondistended. no guarding. MUSCULOSKELETAL: No obvious deformities. No clubbing. No cyanosis. No edema. NEUROLOGICAL: RASS -5. GCS 3. 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 At this point all organ systems are involved. we are in refractory shock despite maximal therapy. Per my conversation with the friend and medical decision maker, we will pursue comfort measures, as we have nothing else to offer the patient medically, and he continues to decline. This is a terminal process. Active Problems: Acute metabolic encephalopathy Previous CVA with encephalomalacia Acute hypoxemic respiratory failure- worsening. 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 flu pneumonia Severe anemia secondary to acute blood loss requiring transfusion GI bleed PseudoGout DVT Plan: In congruence with the patient's wishes, we will pursue comfort measures, prn morphine, ativan, and pursue terminal extubation. I have spent in excess of 90 minutes in the care and management of this very complex patient. Matt Martinez MD Aug 02, 2016 10:20
--- NOTE | 2016-08-02 10:46 | PD.CARD.PN ---
Subjective Subjective Remarks The patient is unresponsive. He is in sinus rhythm. He is hypotensive on multiple high-dose pressors. Echocardiogram yesterday showed what appeared to be triple valve endocarditis. Objective Medications Reviewed Vital Signs / I&O Vital Signs Date Time Temp Pulse Resp B/P Pulse Ox O2 Delivery O2 Flow Rate FiO2 08/02/16 08:00 40 08/02/16 07:48 98 40 08/02/16 07:00 Mechanical Ventilator 40 08/02/16 06:00 62 08/02/16 04:08 96 40 08/02/16 04:00 61 08/02/16 04:00 98.1 61 16 95/46 96 48/48 08/02/16 04:00 40 08/02/16 02:00 64 08/02/16 01:50 94 40 08/02/16 00:00 98.9 66 16 93/46 93 43/28 08/02/16 00:00 40 08/02/16 00:00 Mechanical Ventilator 40 08/02/16 00:00 66 08/01/16 22:00 99 40 08/01/16 22:00 62 08/01/16 21:00 Mechanical Ventilator 45 08/01/16 20:00 45 08/01/16 20:00 65 08/01/16 20:00 97.2 65 16 104/51 98 08/01/16 19:42 100 45 08/01/16 19:00 Mechanical Ventilator 50 08/01/16 18:00 63 08/01/16 16:00 63 16 113/56 100 100/57 08/01/16 16:00 50 08/01/16 16:00 63 08/01/16 15:45 92 50 08/01/16 14:00 57 16 108/52 100 108/38 08/01/16 14:00 57 08/01/16 12:00 97.9 60 16 129/58 100 133/36 08/01/16 12:00 45 08/01/16 12:00 60 08/01/16 11:27 100 45 I/O 08/01/16 08/01/16 08/01/16 08/02/16 08/02/16 08/02/16 07:00 15:00 23:00 07:00 15:00 23:00 Intake Total 528 ml 2653 ml 2811 ml Output Total 600 ml 195 ml 100 ml Balance -72 ml 2458 ml 2711 ml IV Total 528 ml 2653 ml 2811 ml Output Urine Total 600 ml 195 ml 100 ml # Bowel Movements 3 1 Physical Exam GENERAL: Intubated/sedated . SKIN: Warm and dry. NECK: JVD normal - less than or equal to 5 cm H20. CARDIOVASCULAR: Regular rate and rhythm without gallops, or rubs. 2/6 systolic ejection murmur at the left sternal border and apex. RESPIRATORY: Decreased . breath sounds - equal bilaterally. No accessory muscle use. No wheezes, rales or rubs. PERIPHERY: No cyanosis, or edema. Laboratory Laboratory Tests Test 08/01/16 08/01/16 08/01/16 08/01/16 11:25 11:45 13:45 14:10 Blood Gas Puncture Site ART LINE CENTRAL LINE Blood Gas Patient Temperature 98.6 98.6 Blood Gas HCO3 18 mmol/L Blood Gas Base Excess -6.7 mmol/L Blood Gas Oxygen Saturation 95 % Arterial Blood pH 7.34 Arterial Blood Partial 34 mmHg Pressure CO2 Arterial Blood Partial 101 mmHg Pressure O2 Arterial Blood Oxygen Content 13.3 Vol % Arterial Blood 1.4 % Carboxyhemoglobin Arterial Blood Methemoglobin 0.9 % Blood Gas Hemoglobin 9.8 G/DL Oxygen Delivery Device VENTILATOR VENTILATOR Blood Gas Ventilator Setting PRVC/AC PRVC/AC 500/16 Blood Gas Inspired Oxygen 45 % 45 % Sodium Level 138 MEQ/L Potassium Level 3.7 MEQ/L Chloride Level 103 MEQ/L Carbon Dioxide Level 18.6 MEQ/L Anion Gap 16 MEQ/L Blood Urea Nitrogen 60 MG/DL Creatinine 2.31 MG/DL Estimat Glomerular Filtration 28 ML/MIN Rate Random Glucose 321 MG/DL Calcium Level 8.6 MG/DL Magnesium Level 3.3 MG/DL Venous Blood pH 7.25 Venous Blood Partial Pressure 47 mmHg CO2 Venous Blood Partial Pressure 35 mmHg O2 Venous Blood HCO3 20 mmol/L Venous Blood Oxygen Saturation 48 % Venous Blood Oxygen Content 6.2 Vol % Venous Blood Base Excess -6.2 mmol/L Prothrombin Time 15.7 SEC Prothromb Time International 1.4 RATIO Ratio Activated Partial 29.4 SEC Thromboplast Time Test 08/01/16 08/01/16 08/02/16 08/02/16 18:00 20:00 04:15 07:30 Sodium Level 134 MEQ/L 131 MEQ/L Potassium Level 4.2 MEQ/L 4.3 MEQ/L Chloride Level 99 MEQ/L 99 MEQ/L Carbon Dioxide Level 19.1 MEQ/L 18.2 MEQ/L Anion Gap 16 MEQ/L 14 MEQ/L Blood Urea Nitrogen 61 MG/DL 62 MG/DL Creatinine 2.61 MG/DL 2.99 MG/DL Estimat Glomerular Filtration 24 ML/MIN 21 ML/MIN Rate Random Glucose 332 MG/DL 190 MG/DL Calcium Level 8.2 MG/DL 7.8 MG/DL Magnesium Level 3.0 MG/DL 2.8 MG/DL Hemoglobin 8.9 GM/DL 8.5 GM/DL Hematocrit 29.3 % 28.0 % Activated Partial 35.7 SEC Thromboplast Time Random Vancomycin Level 22.3 COMMENT White Blood Count 19.8 TH/MM3 Red Blood Count 3.40 MIL/MM3 Mean Corpuscular Volume 82.4 FL Mean Corpuscular Hemoglobin 25.0 PG Mean Corpuscular Hemoglobin 30.4 % Concent Red Cell Distribution Width 24.6 % Platelet Count 105 TH/MM3 Mean Platelet Volume 9.3 FL Hematology Comments Test 08/02/16 08/02/16 08/02/16 08:30 09:18 09:20 Activated Partial 40.7 SEC Thromboplast Time Blood Gas Puncture Site ART LINE Blood Gas Patient Temperature 98.6 Blood Gas HCO3 14 mmol/L Blood Gas Base Excess -13.3 mmol/L Blood Gas Oxygen Saturation 91 % Arterial Blood pH 7.13 Arterial Blood Partial 44 mmHg Pressure CO2 Arterial Blood Partial 87 mmHg Pressure O2 Arterial Blood Oxygen Content 10.6 Vol % Arterial Blood 1.1 % Carboxyhemoglobin Arterial Blood Methemoglobin 1.6 % Blood Gas Hemoglobin 8.2 G/DL Oxygen Delivery Device VENTILATOR Blood Gas Ventilator Setting PRVC/AC 500/16 Blood Gas Inspired Oxygen 40 % Lactic Acid Level 3.5 mmol/L Imaging Last 48 hours Impressions Chest X-Ray 08/01/16 0000 Signed Impressions: Service Date/Time: Monday, August 01, 2016 08:57 - CONCLUSION: 1. Support apparatus remains in good position. 2. Central line in good position without pneumothorax. 3. Moderate hyperinflation persists. Henry Arana MD FACR Chest X-Ray 08/01/16 0000 Signed Impressions: Service Date/Time: Monday, August 01, 2016 05:57 - CONCLUSION: 1. Interval placement of endotracheal tube. 2. Mild improvement in pulmonary opacities most consistent with pulmonary edema. Sandor Holt MD Assessment and Plan Assessment and Plan Problems: Sepsis Paroxysmal atrial fibrillation Elevated troponinnonspecific DVT this hospital stay with prior PE Hypotension Acute renal failure GI bleed Recommendations: The patient is in critical condition and there is minimal likelihood of survival. He has multiple severe medical issues, is hypotensive on multiple pressors and certainly is not a surgical candidate. I agree with Dr. Martinez that the patient will not survive this. I have signed this on a terminal condition form. We will be available if needed. Drew Doll MD Aug 02, 2016 10:46
[2016-08-02] MEDS ORDERED: LORazepam 2 MG/ML VIAL IV ONE ×2 (11:45→15:45)
[2016-08-02] MEDS ORDERED: MORPHINE SULFATE 4 MG/ML INJ IV PRN (11:45)
[2016-08-02] MEDS ORDERED: MORPHINE SULFATE 8 MG/ML INJ IV PUSH ONE (11:45)
[2016-08-02] MEDS ORDERED: LORazepam 2 MG/ML VIAL IV PRN (11:45)
--- NOTE | 2016-08-02 12:52 | HHI.DS ---
Summary Note Date of : Aug 02, 2016 Time Of : 12:21 Admission Date Jul 26, 2016 at 17:03 Admitting Diagnosis Diagnosis at Time of : (1) Acute respiratory failure ICD Code: J96.00 Diagnosis: Principal (2) Encephalopathy acute ICD Code: G93.40 Diagnosis: Principal (3) Septic shock ICD Code: A41.9 Diagnosis: Principal (4) GI bleed ICD Code: K92.2 Diagnosis: Principal (5) Atrial fibrillation with rapid ventricular response ICD Code: I48.91 Diagnosis: Principal (6) Severe anemia ICD Code: D64.9 Diagnosis: Principal (7) Lactic acidosis ICD Code: E87.2 Diagnosis: Principal (8) Acute kidney failure ICD Code: N17.9 Diagnosis: Principal (9) Dehydration ICD Code: E86.0 Diagnosis: Principal (10) Leukocytosis ICD Code: D72.829 Diagnosis: Principal (11) Elevated troponin ICD Code: R74.8 Diagnosis: Principal (12) possible history of PE in 2011 Diagnosis: Secondary Brief History Patient is a 71-year-old male with only known past medical history of tobacco abuse and a possible history of PE in 2011 aas per emergency department notes was brought to the [place] ED for altered mental status. Apparently patient's roommate found him unresponsive in the morning and after he came back from work patient was still in the same condition not responsive. EMS was called patient was found hypotensive, hypoxemic and given a liter bolus which improved the blood pressure. In the emergency department patient had a GCS of 8. He had a fever 101.1 tachycardic and heart rate 150s. Patient was given additional fluid boluses and was intubated by Dr. Oliver for airway protection. Chest x-ray was unremarkable lab work showed a hemoglobin of 4.1 white count of 13, lactic acid of 6.2 BUN of 16 creatinine of 2.7. For possible sepsis he was given vancomycin and Zosyn. A total of 4 units of PRBC had been ordered and GI consult had been requested. History of Hemoccult was positive. Troponin was slightly elevated could be demand ischemia in renal failure I evaluated the patient in the ED. He appears chronically ill, dishevelled. CT of the head and chest abdomen pelvis is pending at this time. Dr.Al Gastelum with GI had been consulted. IV Protonix gtt. Start Cardizem bolus and drip for A fib with RVR CBC/BMP: 08/02/16 0730 08/02/16 0415 Significant Findings Laboratory Tests Test 07/31/16 07/31/16 08/01/16 08/01/16 04:53 04:54 05:08 05:30 White Blood Count 14.9 TH/MM3 13.4 TH/MM3 (4.0-11.0) (4.0-11.0) Red Blood Count 3.99 MIL/MM3 4.36 MIL/MM3 (4.50-5.90) (4.50-5.90) Hemoglobin 9.9 GM/DL 11.1 GM/DL (13.0-17.0) (13.0-17.0) Hematocrit 31.5 % 35.1 % (39.0-51.0) (39.0-51.0) Mean Corpuscular Volume 79.0 FL (80.0-100.0) Mean Corpuscular Hemoglobin 24.8 PG 25.6 PG (27.0-34.0) (27.0-34.0) Mean Corpuscular Hemoglobin 31.4 % 31.8 % Concent (32.0-36.0) (32.0-36.0) Red Cell Distribution Width 25.7 % 26.2 % (11.6-17.2) (11.6-17.2) Chloride Level 110 MEQ/L (98-107) Blood Urea Nitrogen 43 MG/DL (7-18) 56 MG/DL (7-18) Creatinine 2.00 MG/DL 2.52 MG/DL (0.60-1.30) (0.60-1.30) Estimat Glomerular Filtration 33 ML/MIN (>89) 25 ML/MIN (>89) Rate Random Glucose 115 MG/DL 235 MG/DL (74-106) (74-106) Calcium Level 8.4 MG/DL (8.5-10.1) B-Type Natriuretic Peptide 1534 PG/ML 1942 PG/ML (0-100) (0-100) Anion Gap 18 MEQ/L (5-15) Blood Gas HCO3 18 mmol/L (22-26) Blood Gas Base Excess -7.2 mmol/L (-2-2) Arterial Blood pH 7.29 (7.380-7.420) Arterial Blood Partial 265 mmHg Pressure O2 (61-120) Blood Gas Hemoglobin 9.4 G/DL (12.0-16.0) Test 08/01/16 08/01/16 08/01/16 08/01/16 10:00 11:25 11:45 13:45 Troponin I 2.33 NG/ML (0.02-0.05) Blood Gas HCO3 18 mmol/L (22-26) Blood Gas Base Excess -6.7 mmol/L (-2-2) Arterial Blood pH 7.34 (7.380-7.420) Arterial Blood Partial 34 mmHg (38-42) Pressure CO2 Blood Gas Hemoglobin 9.8 G/DL (12.0-16.0) Carbon Dioxide Level 18.6 MEQ/L (21.0-32.0) Anion Gap 16 MEQ/L (5-15) Blood Urea Nitrogen 60 MG/DL (7-18) Creatinine 2.31 MG/DL (0.60-1.30) Estimat Glomerular Filtration 28 ML/MIN (>89) Rate Random Glucose 321 MG/DL (74-106) Magnesium Level 3.3 MG/DL (1.5-2.5) Venous Blood pH 7.25 (7.360-7.400) Venous Blood HCO3 20 mmol/L (22-26) Venous Blood Oxygen Saturation 48 % (70-76) Venous Blood Oxygen Content 6.2 Vol % (9.0-17.0) Venous Blood Base Excess -6.2 mmol/L (-2-2) Test 08/01/16 08/01/16 08/01/16 08/02/16 14:10 18:00 20:00 04:15 Prothrombin Time 15.7 SEC (9.8-11.6) Sodium Level 134 MEQ/L 131 MEQ/L (136-145) (136-145) Carbon Dioxide Level 19.1 MEQ/L 18.2 MEQ/L (21.0-32.0) (21.0-32.0) Anion Gap 16 MEQ/L (5-15) Blood Urea Nitrogen 61 MG/DL (7-18) 62 MG/DL (7-18) Creatinine 2.61 MG/DL 2.99 MG/DL (0.60-1.30) (0.60-1.30) Estimat Glomerular Filtration 24 ML/MIN (>89) 21 ML/MIN (>89) Rate Random Glucose 332 MG/DL 190 MG/DL (74-106) (74-106) Calcium Level 8.2 MG/DL 7.8 MG/DL (8.5-10.1) (8.5-10.1) Magnesium Level 3.0 MG/DL 2.8 MG/DL (1.5-2.5) (1.5-2.5) Hemoglobin 8.9 GM/DL (13.0-17.0) Hematocrit 29.3 % (39.0-51.0) Activated Partial 35.7 SEC Thromboplast Time (24.3-30.1) Test 08/02/16 08/02/16 08/02/16 08/02/16 07:30 08:30 09:18 09:20 White Blood Count 19.8 TH/MM3 (4.0-11.0) Red Blood Count 3.40 MIL/MM3 (4.50-5.90) Hemoglobin 8.5 GM/DL (13.0-17.0) Hematocrit 28.0 % (39.0-51.0) Mean Corpuscular Hemoglobin 25.0 PG (27.0-34.0) Mean Corpuscular Hemoglobin 30.4 % Concent (32.0-36.0) Red Cell Distribution Width 24.6 % (11.6-17.2) Platelet Count 105 TH/MM3 (150-450) Activated Partial 40.7 SEC Thromboplast Time (24.3-30.1) Blood Gas HCO3 14 mmol/L (22-26) Blood Gas Base Excess -13.3 mmol/L (-2-2) Arterial Blood pH 7.13 (7.380-7.420) Arterial Blood Partial 44 mmHg (38-42) Pressure CO2 Arterial Blood Oxygen Content 10.6 Vol % (12.0-20.0) Blood Gas Hemoglobin 8.2 G/DL (12.0-16.0) Lactic Acid Level 3.5 mmol/L (0.4-2.0) Imaging Last 24 hours Impressions Chest X-Ray 08/01/16 0000 Signed Impressions: Service Date/Time: Monday, August 01, 2016 05:57 - CONCLUSION: 1. Interval placement of endotracheal tube. 2. Mild improvement in pulmonary opacities most consistent with pulmonary edema. Sandor Holt MD Hospital Course 07/27 Patient is sedated with Versed , fentanyl and intubated. On Protonix drip and Cardizem drip 2mg/hr. Afebrile. Hgb 8.5 this morning from 4.4 yesterday. s/ p transfusion 4units PRBC. 07/28 Patient remains intubated and sedated with fentanyl. Remains on Protonix drip. Hgb 8.0 this morning, He was placed on Amio drip overnight for Afib with RVR . On Bicarb drip. 07/29: patient extubated yesterday and from pulmonary standpoint, doing much better. however, remains on protonix drip and plan for scope today or tomorrow. hgb stable, but wbc significantly elevated this AM. Hypernatremia/ hyperchloremia/hypokalemia persists despite aggressive free water and K replacements. Cr slightly improved. Cultures NGTD. knee aspirate consistent with acute gout flair. 08/01: reconsulted emergently overnight and intubated overnight for acute hypoxemia with spo2 60s% and altered mental status. this morning, awake and alert, but in afib RVR, hypotensive. I performed bedside critical care echo which demonstrated severe global LV hypokinesis, preserved RV size and function , RVSP ~40 by TR jet. moderate aortic insufficiency persists, and dilated IVC at 2.6cm without respiratory variation. trace pericardial effusion, very small bilateral pleural effusions at the bases. CXR demonstrates persistent pulmonary congestion. While I was evaluating and managing the patient, he converted for a short time back to NSR with HR in the 60s. Repeat bedside critical care echo demonstrated an improved LV contractility and what appears to be only mild hypokinesis vs. almost completely resolved function. the remainder of the echo findings were unchanged. The patient had good diuresis yesterday. 08/02: No improvements overnight. patient remained anuric in multi organ system dysfunction. No evidence of meaningful recovery. cardiac output today < 2LPM and cardiac index < 1. grossly volume overloaded, but remains in refractory mixed cardiogenic/distributive shock. Our 4 vasporessors are maxed out at this point. At this point, this is not a survivable combination of pathologies. I have spoken with the friend and healthcare proxy at bedside and he elects to pursue comfort measures, which after talking with him about Mr. Finley's wishes, I agree is in congruence with what the patient would have wanted. patient was made comfortable and at 12:21 on 08/02. Matt Martinez MD Aug 02, 2016 12:51
[2016-08-02] MEDS ORDERED: MORPHINE SULFATE 4 MG/ML INJ IV ONE (15:45)
[2016-08-02] MEDS ORDERED: ACETAMINOPHEN 650 MG SUPP RECTAL PRN (15:45)
== END 2016-08-02 12:21 | disposition expired | DRG 871 ==
LOC: NEPC 15:06 → NEDA 17:03 → HIME 19:30
PROVIDERS: ADMIT Hospitalist; ATTEND Hospitalist
PROC: 5A1945Z Respiratory Ventilation, 24-96 Consecutive Hours (ICD-10-PCS; principal; 2016-07-26)
PROC: 30233N1 Transfusion of Nonautologous Red Blood Cells into Peripheral Vein, Percutaneous Approach (ICD-10-PCS; 2016-07-26)
PROC: 0BH17EZ Insertion of Endotracheal Airway into Trachea, Via Natural or Artificial Opening (ICD-10-PCS; 2016-07-26)
PROC: 0S9D3ZX Drainage of Left Knee Joint, Percutaneous Approach, Diagnostic (ICD-10-PCS; 2016-07-28)
PROC: 0DB38ZX Excision of Lower Esophagus, Via Natural or Artificial Opening Endoscopic, Diagnostic (ICD-10-PCS; 2016-07-30)
PROC: 0DB28ZX Excision of Middle Esophagus, Via Natural or Artificial Opening Endoscopic, Diagnostic (ICD-10-PCS; 2016-07-30)
PROC: 0DJD8ZZ Inspection of Lower Intestinal Tract, Via Natural or Artificial Opening Endoscopic (ICD-10-PCS; 2016-07-30)
PROC: 5A09457 Assistance with Respiratory Ventilation, 24-96 Consecutive Hours, Continuous Positive Airway Pressure (ICD-10-PCS; 2016-07-30)
PROC: 03HY32Z Insertion of Monitoring Device into Upper Artery, Percutaneous Approach (ICD-10-PCS; 2016-08-01)
PROC: 05HN33Z Insertion of Infusion Device into Left Internal Jugular Vein, Percutaneous Approach (ICD-10-PCS; 2016-08-01)
PROC: B544ZZA Ultrasonography of Left Jugular Veins, Guidance (ICD-10-PCS; 2016-08-01)
PROC: 0BH17EZ Insertion of Endotracheal Airway into Trachea, Via Natural or Artificial Opening (ICD-10-PCS; 2016-08-01)
PROC: 5A1945Z Respiratory Ventilation, 24-96 Consecutive Hours (ICD-10-PCS; 2016-08-01)
PROC: 03HY32Z Insertion of Monitoring Device into Upper Artery, Percutaneous Approach (ICD-10-PCS; 2016-08-02)
DX: A40.3 Sepsis due to Streptococcus pneumoniae (principal); J96.01 Acute respiratory failure with hypoxia; Z51.5 Encounter for palliative care; N17.0 Acute kidney failure with tubular necrosis; I21.4 Non-ST elevation (NSTEMI) myocardial infarction; R57.0 Cardiogenic shock; R65.21 Severe sepsis with septic shock; I33.0 Acute and subacute infective endocarditis; G93.41 Metabolic encephalopathy; C16.0 Malignant neoplasm of cardia; J13 Pneumonia due to Streptococcus pneumoniae; J44.0 Chronic obstructive pulmonary disease with (acute) lower respiratory infection; J14 Pneumonia due to Hemophilus influenzae; K92.2 Gastrointestinal hemorrhage, unspecified; E87.0 Hyperosmolality and hypernatremia; J44.1 Chronic obstructive pulmonary disease with (acute) exacerbation; E87.2 Acidosis; I82.442 Acute embolism and thrombosis of left tibial vein; I82.413 Acute embolism and thrombosis of femoral vein, bilateral; I82.433 Acute embolism and thrombosis of popliteal vein, bilateral; I82.813 Embolism and thrombosis of superficial veins of lower extremities, bilateral; I47.1 Supraventricular tachycardia; D62 Acute posthemorrhagic anemia; E86.0 Dehydration; D50.9 Iron deficiency anemia, unspecified; I71.4 Abdominal aortic aneurysm, without rupture; D64.9 Anemia, unspecified; M25.462 Effusion, left knee; T38.0X5A Adverse effect of glucocorticoids and synthetic analogues, initial encounter; M10.9 Gout, unspecified; R40.2432 Glasgow coma scale score 3-8, at arrival to emergency department; E87.6 Hypokalemia; E87.8 Other disorders of electrolyte and fluid balance, not elsewhere classified; I08.0 Rheumatic disorders of both mitral and aortic valves; I50.9 Heart failure, unspecified; I11.0 Hypertensive heart disease with heart failure; I48.0 Paroxysmal atrial fibrillation; M17.12 Unilateral primary osteoarthritis, left knee; F17.210 Nicotine dependence, cigarettes, uncomplicated; Z66 Do not resuscitate; Z79.01 Long term (current) use of anticoagulants; Z86.711 Personal history of pulmonary embolism; Z86.718 Personal history of other venous thrombosis and embolism; Z86.73 Personal history of transient ischemic attack (TIA), and cerebral infarction without residual deficits
CPT/HCPCS: 31500; 36430; 36556; 36600; 51702; 70450; 71010; 71250; 73502; 73560; 74176; 76937; 80048; 80053; 80069; 80202; 80307; 81001; 82140; 82550; 82552; 82570; 82607; 82805; 82948; 83540; 83550; 83605; 83690; 83735; 83880; 84100; 84132; 84300; 84484; 85007; 85014; 85018; 85025; 85027; 85610; 85730; 86850; 86900; 86901; 86920; 87040; 87070; 87086; 87149; 87184; 87185; 87186; 87205; 87449; 87641; 88305; 89051; 89060; 93005; 93306; 93971; 94002; 94003; 94150; 94640; 94664; 94667; 94668; 95819; 96361; 96365; C9113; J0171; J0282; J0696; J1160; J1205; J1644; J1720; J1940; J2060; J2250; J2270; J2370; J2543; J2920; J2930; J3010; J3370; J3475; J3480; J7030; J7042; J7050; J7060; J7070; J7613; P9016; P9047